=== PATIENT | female | born 1965 | race Caucasian/White ===

== ENCOUNTER 2016-12-15 15:57 | Inpatient (IN) ==
[2016-12-15] MEDS ORDERED: 0.9 % Sodium Chloride 1,000 ML IVC ONE (16:05)
[2016-12-15 16:37] LABS: Bilirubin,Urine Small (Negative); Blood,Urine Small (Negative); Clarity,Urine Clear (Clear); Color,Urine Yellow (Yellow); Glucose,Urine (UA) 100 mg/dL (Normal); Ketones,Urine 15 mg/dL (Negative); Leukocyte Esterase,Urine Negative (Negative); Nitrite,Urine Negative (Negative); Protein,Urine 100 mg/dL (Neg-Trace); Specific Gravity,Urine 1.025 (1.010-1.025); Urobilinogen,Urine >=8.0 mg/dL (Normal)
[2016-12-15 16:45] LABS: RBC,Urine 15-30 per hpf (0-3); Squamous Epithelial Cell,Urine Few per lpf (None-Few)
[2016-12-15 16:46] LABS: Mucus,Urine Moderate (Few); WBC,Urine 0-3 per hpf (0-3)
[2016-12-15 16:47] LABS: Bacteria,Urine Few per hpf (None-Few)
--- NOTE | 2016-12-15 16:53 | Emergency Department Note ---
Disposition Clinical Impression: Cellulitis and abscess of hand, Altered mental status, Positive urine drug screen, Polysubstance dependence Disposition: Admitted As Inpatient Condition: Fair General Adult HPI - General Chief complaint: ED Extremity Injury, Upper Stated complaint: Left hand pain Time Seen by Provider: 12/15/16 16:02 Source: EMS Mode of arrival: EMS Limitations: no limitations Nursing Notes Reviewed: Yes Vital Signs Reviewed: Yes - History of Present Illness HPI Narrative: Patient presents emergency room with complaint of left hand swelling redness and pain. Patient was also altered. Sent from urgent care for evaluation. 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 Radiation: non-radiation Pain Severity: severe Pain Scale: 10 Quality: aching Consistency: constant Improves with: nothing Worsens with: movement Associated symptoms: Reports: confusion, fever/chills Treatments Prior to Arrival: none - Related Data Home Medications Medication Instructions Recorded Confirmed Venlafaxine [Effexor] 75 mg PO TID 01/27/16 12/15/16 Omeprazole [PriLOSEC] 20 mg PO DAILY 08/02/16 12/15/16 Sucralfate [Carafate] 1 gm PO QID 08/02/16 12/15/16 Albuterol Sulfate [Proair Hfa] 2 puff IH Q4H PRN 12/15/16 12/15/16 ClonazePAM [Klonopin] 1 mg PO BID 12/15/16 12/15/16 Gabapentin [Neurontin] 800 mg PO TID 12/15/16 12/15/16 Previous Rx's Medication Instructions Recorded Furosemide [Lasix] 20 mg PO DAILY #30 tablet 08/04/16 Allergies Allergy/AdvReac Type Severity Reaction Status Date / Time ibuprofen Allergy Rash Verified 01/27/16 04:16 tramadol [From Ultram] Allergy Rash Verified 01/27/16 04:16 All systems ED: reviewed and negative except as stated. Limitations: ROS unobtainable due to patients medical condition Past Medical History - Past Medical History Attestation: Yes The following information was validated with the patient. 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 Absent: scleral icterus, miosis, mydriasis - ENT ENT exam: normal exam, normal oropharynx, mucous membranes moist - Neck Neck exam: Present: normal inspection, full ROM, trachea midline - Chest Chest inspection: Present: normal inspection, symmetric chest wall rise - Respiratory Respiratory exam: Present: normal lung sounds bilaterally. Absent: respiratory distress - Cardiovascular Cardiovascular exam: Present: regular rate, normal rhythm, normal heart sounds - Abdominal Exam Abdominal exam: Present: soft, Non-Tender, normal bowel sounds. Absent: tenderness, distention, guarding, rebound, rigidity - Extremities Exam Extremities exam: Present: normal inspection, full ROM, joint swelling (Joint swelling over the left wrist and hand. Cellulitis noted over the top of the extremity) - Back Exam Back exam: Present: normal inspection - Neurological Exam Neurological exam: Present: alert. Absent: oriented X3 - Skin Skin exam: Present: warm Course Course Narrative: Patient seen and examined the time of arrival. See history of present illness. 51-year-old female presents by EMS today for evaluation of altered mental status, hallucinations, left hand injury swelling and redness. She has long- standing history of psychiatric disease as well as drug abuse. Sent in from an urgent care for evaluation. Patient denies any symptoms on presentation. Patient has visible ataxia along with acting like she is intoxicated. Vital signs are presentation reviewed. Patient is not alert to time or place she follows commands intermittently. She has stable HEENT examination pupils are equal round reactive to light. Ocular muscles are intact. For torsion the neck. Lungs are clear heart is regular abdomen soft nontender nondistended. She was all 4 extremities with purpose. She does have significant redness and swelling from the mid shaft of the left forearm down to the dorsal aspect of the hands and fingers. There appears to be a puncture site on the dorsal aspect of the hand over venous supply. Concern for IV drug abuse at this time and sinusitis with abscess. Patient has multiple underlying medical conditions including psychiatric disease as well as drug abuse. There is concern for infectious presentation altered mental status secondary to these [address] the head CT of the left upper extremity chest x-ray labs troponin EKG blood cultures fluids provided as well as IV antibiotics for what appears to be cellulitic-like presentation. Patient will have urine and urine drug screen ordered at this time. Disposition will most likely be admission to hospital for definitive management. Otherwise patient is resting comfortably in the bed. We will continue to monitor treatment course is completed - Reevaluation(s) Reevaluation #1: Patient found a mildly elevated white blood cell count. No other significant lab abnormalities this time. Urine is positive for opioids, benzodiazepines, methamphetamine, cocaine. Patient has poly-substance abuse at this time. Altered mental status most likely secondary to this etiology and possible infection. CT of the arm still pending as well as definitive read on the CT of the head. Otherwise patient is resting comfortably and I would normal vital signs. First dose of IV antibiotics given at this time. Disposition will most likely be admission once treatment course is completed Time: 18:25 Reevaluation #2: Cellulitis of the left and confirmed by CT scan head is atraumatic. Labs show signs of infection with elevated WBC count. Patient also has some aspect of kidney dysfunction with multiple different findings and her urinalysis including protein ketones and glucose along with urobilinogen. Patient otherwise has no other acute specific pathology except for altered mental status secondary to polysubstance abuse and infection. First dose IV antibiotic given here. Hospitalist paged at this time for admission Time: 18:50 Reevaluation #3: Patient discussed with the hospitalist Dr. Orourke. Detailed review the presentation symptoms of medical history were reviewed. No other acute questions or concerns at this time. Patient to be admitted for what appears to be polysubstance abuse causing altered mental status and cellulitis. Patient stable here in the emergency room. Admission process to be completed. We will continue to monitor in the emergency room until admission process is completed Time: 19:08 Vital Signs Temperature 98.3 F 12/15/16 16:02 Pulse Rate 84 12/15/16 16:02 Respiratory Rate 16 12/15/16 16:02 Blood Pressure 127/85 12/15/16 16:02 O2 Sat by Pulse Oximetry 97 12/15/16 16:02 Temperature 97.6 F 12/19/16 19:36 Pulse Rate 78 12/19/16 19:36 Respiratory Rate 18 12/19/16 19:36 Blood Pressure 116/77 12/19/16 19:36 O2 Sat by Pulse Oximetry 97 12/19/16 19:36 Oxygen Delivery Oxygen Delivery Room Air Medical Decision Making - MDM Narrative Medical decision making narrative: Altered mental status, drug abuse, cellulitis - Medical Records Medical records reviewed: Yes I reviewed the patient's medical records. - Lab Data Lab results reviewed: Yes I reviewed the patient's lab results. Result diagrams: 12/19/16 04:25 12/19/16 04:25 - Radiology Data Radiology results reviewed: Yes I reviewed the patient's radiology results. CT of the head is negative for acute intracranial pathology. CT of the left upper extremity confirms cellulitis from the mid forearm down to the hand with no subcutaneous air. - EKG Data EKG #1 EKG attestation: Yes I reviewed and interpreted this EKG. EKG shows normal: sinus rhythm, axis, intervals, QRS complexes, ST-T waves Rate: normal Rhythm: NSR [place]/QRS: normal When compared to previous EKG there are: previous EKG unavailable Interpretation: normal EKG Critical Care Time Critical Care Time: Yes Total Critical Care Time: 45 Attestation: Independent of procedures and medical intervention
[2016-12-15 17:08] LABS: Basophils % 0.3 %; Eosinophils # 0.1 K/mcL (0.0-0.6); Eosinophils % 1.2 %; Hematocrit 35.1 % (35.3-44.9); Hemoglobin 11.3 g/dL (11.5-15.4); Immature Granulocytes % 0.3 % (0-4); Lymphocytes # 1.9 K/mcL (0.6-4.6); Lymphocytes % 16.4 %; Mean Corpuscular HGB Conc 32.2 g/dL (31.6-35.5); Mean Corpuscular Hemoglobin 27.6 pg (28.0-33.3); Mean Corpuscular Volume 85.6 fL (83.0-100.0); Mean Platelet Volume 10.4 fL (9.4-12.4); Monocytes # 0.9 K/mcL (0.0-1.3); Monocytes % 7.5 %; Neutrophils # 8.7 K/mcL (1.6-8.9); Platelet Count 229 K/mcL (140-400); Red Cell Distribution Width 15.6 % (11.5-14.5); Segmented Neutrophils % 74.3 %
[2016-12-15 17:13] LABS: INR 1.1; Prothrombin Time 12.4 Seconds (9.4-12.1)
[2016-12-15 17:15] LABS: Activated Partial Thrombo Time 27.4 Seconds (26.0-36.0)
[2016-12-15 17:15] LABS: Amphetamine Screen,Urine Positive ng/mL (Cutoff=1000); Barbiturate Screen,Urine Negative ng/mL (Cutoff=200); Benzodiazepines Screen,Urine Positive ng/mL (Cutoff=200); Cannabinoid Screen,Urine Negative ng/mL (Cutoff = 50); Cocaine Screen,Urine Positive ng/mL (Cutoff= 300); Opiate Screen,Urine Positive ng/mL (Cutoff=300); Phencyclidine Screen,Urine Negative ng/mL (Cutoff=25)
[2016-12-15] MEDS ORDERED: Vancomycin 750 MG in D5% in Water 250 ML IVPB ONE (17:21)
[2016-12-15 17:22] LABS: Alanine Aminotransferase 13 Units/L (0-55); Albumin 3.2 g/dL (3.5-5.0); Albumin/Globulin Ratio 0.9 (1.1-2.2); Alkaline Phosphatase 82 Units/L (38-126); Aspartate Amino Transferase 21 Units/L (5-34); BUN/Creatinine Ratio 30 (6-26); Bilirubin,Direct 0.6 mg/dL (0.0-0.5); Bilirubin,Indirect 0.8 mg/dL (0.0-1.2); Bilirubin,Total 1.4 mg/dL (0.2-1.2); Blood Urea Nitrogen 16 mg/dL (7-20); Calcium 9.1 mg/dL (8.6-10.8); Carbon Dioxide 27 mEq/L (19-29); Chloride 102 mEq/L (98-109); Creatine Kinase 49 Units/L (29-168); Globulin 3.4 g/dL (2.4-3.5); Glucose 92 mg/dL (70-99); Osmolality,Calculated 291 (280-300); Potassium 3.6 mEq/L (3.5-4.5); Sodium 140 mEq/L (136-145); Total Protein 6.6 g/dL (6.0-8.3); eGFR For African Americans > 60 (> 60); eGFR For Non-African Americans > 60 (> 60)
[2016-12-15 17:25] LABS: Acetaminophen < 1.0 mcg/mL (10-30); Ethanol < 10 mg/dL (0-10); Salicylate < 5.0 mg/dL (15-30)
[2016-12-15] MEDS ORDERED: Ondansetron 4 MG/2 ML VIAL IVP PRN (19:54)
--- NOTE | 2016-12-15 20:01 | Internal Med History&Physical ---
Date of Encounter: 12/15/16 Time of Encounter: 19:30 Assessment and Plan (1) Acute encephalopathy Current visit: Yes Status: Acute - Initial confused & slightly agitated in ED and currently hypersomnolent. - Likely secondary to polysubstance abuse in the setting of dehydration. - Hydration with IV NS. - Hold all home medication except Effexor. - Closely monitor. (2) Cellulitis Current visit: Yes Status: Acute - Affecting left distal dorsal forearm and left hand, as seen as subcutaneous fat stranding on CT left upper extremity. No drainable fluid collection and no acute osseous abnormality. - Pending blood culture. - Will obtain echocardiogram to evaluate potential endocarditis. - Continue IV vancomycin and add IV Zosyn for broader coverage. Will de- escalate later based on clinical findings & culture result. - Hydration with IV NS. - Closely monitor. Qualifiers: Site of cellulitis: extremity Site of cellulitis of extremity: upper extremity Laterality: left Qualified Code(s): L03.114 - Cellulitis of left upper limb (3) IVDU (intravenous drug user) Current visit: Yes Status: Acute - Left venous puncture site likely suggestive of IVDU. - Polysubstance abuse with UDS positive for opiates, amphetamine, benzodiazepam and cocaine. - Social service consulted. - Closely monitor with telemetry. (4) Hyperbilirubinemia Current visit: Yes Status: Acute - Mild elevated bilirubin at 1.6. - Likely secondary to dehydration. - Hydration with IV NS. - Continue to monitor. (5) DVT prophylaxis Current visit: Yes Status: Acute - SQ heparin. Internal Medicine - H&P: HPI Chief complaint: Altered mental status Admitted From: Emergency Dept Plans for Post Hospital Care: Home History of present illness: Ms. Mccallum is a 51 year old female with PMH of hepatitis C, IVDU, GERD and significant psychiatric history. Patient was sent from urgent care to [place] ED for altered mental status along with left upper extremity erythema and swelling. On my encounter with patient in ED, patient is hypersomnolent and not arousable to verbal or pain stimulus but patient does withdraw from pain. Given her current mental status, much of history was obtained from review of medical records and talking to ED staffs. Per ED nurse, patient was initially alert and slightly agitated with ataxic gait but oriented to self only upon presentation to ED. Police had searched patient's purse and found a crack pipe. Patient was also noted to have a puncture site on the dorsal aspect of the hand over venous supply, likely suggestive of IVDU. Blood culture was collected and patient was started on IV vancomycin and IV NS bolus in ED. Patient will be admitted for further evaluation and management. Past Med Surg Social Fam HX - Past Medical History Medical history: GERD, hepatitis, other Psychiatric history: anxiety, depression - Past Surgical History Surgical History: other (Laparotomy for perforated gastric ulcer) - Social History Smoking Status: Current every day smoker Smokeless Tobacco Status: No Alcohol use: unknown Drug use: none, cocaine, opiates, marijuana, methamphetamine, prescription drug abuse Internal Medicine - H&P: Meds Venlafaxine [Effexor] 75 mg PO TID 01/27/16 [History] Omeprazole [PriLOSEC] 20 mg PO DAILY 08/02/16 [History] Sucralfate [Carafate] 1 gm PO QID 08/02/16 [History] Furosemide [Lasix] 20 mg PO DAILY #30 tablet 08/04/16 [Rx] Albuterol Sulfate [Proair Hfa] 2 puff IH Q4H PRN 12/15/16 [History] ClonazePAM [Klonopin] 1 mg PO BID 12/15/16 [History] Gabapentin [Neurontin] 800 mg PO TID 12/15/16 [History] Allergies ibuprofen Allergy (Verified 01/27/16 04:16) Rash tramadol [From Ultram] Allergy (Verified 01/27/16 04:16) Rash ROS unobtainable: due to mental status All Systems PM: A 10-system review of systems was performed and is negative for pertinent findings except as documented above in the HPI. - Constitutional Vitals: Temp Pulse Resp BP Pulse Ox 98.3 F 75 16 103/64 97 12/15/16 16:02 12/15/16 18:00 12/15/16 18:00 12/15/16 18:00 12/15/16 18:00 General appearance: Present: no acute distress Exam: Patient is hypersomnolent and not arousble to verbal or pain stimuli. Patient does withdraw from pain. - Head Head exam: Present: atraumatic, normocephalic - Eye Eye exam: Present: sclera anicteric Pupils: Present: mydriatic - Neck Neck exam general surgery: Present: supple, trachea midline. Absent: lymphadenopathy - Respiratory Respiratory exam: Present: CTAB. Absent: accessory muscle use, rales, rhonchi, wheezes - Cardiovascular Cardiovascular exam: Present: RRR, +S1, +S2. Absent: diastolic murmur, gallop, rubs, systolic murmur - GI/Abdominal GI/Abdominal exam: Present: normal bowel sounds, soft, no peritoneal signs. Absent: distended - Extremities Exam Extremities exam: Present: warm, radial pulses palpable and symetrical. Absent : cyanotic, pedal edema Additional comments: Erythema, swelling and warmth to touch from left mid dorsal forearm extending to the left hand. A puncture site on the dorsal aspect of the hand over venous supply, likely suggestive of IVDU. - Neurological Exam Neurological exam: Absent: facial droop Additional comments: Unable to fully assess given patient's current mental status. - Skin Skin exam: Present: dry, warm Internal Med - H&P Results - Labs CBC & Chem 7: 12/15/16 16:54 12/15/16 16:54 Labs: Short CBC 12/15/16 Range/Units 16:54 WBC 11.7 H (4.3-11.1) K/mcL Hgb 11.3 L (11.5-15.4) g/dL Hct 35.1 L (35.3-44.9) % Plt Count 229 (140-400) K/mcL Neutrophils # 8.7 (1.6-8.9) K/mcL BMP 12/15/16 Range/Units 16:54 Sodium 140 (136-145) mEq/L Potassium 3.6 (3.5-4.5) mEq/L Chloride 102 (98-109) mEq/L Carbon Dioxide 27 (19-29) mEq/L BUN 16 (7-20) mg/dL Creatinine 0.53 L (0.57-1.11) mg/dL Glucose 92 (70-99) mg/dL Calcium 9.1 (8.6-10.8) mg/dL Cardiac Enzymes 12/15/16 Range/Units 16:54 Troponin I 0.00 (0-0.03) ng/mL Liver Function 12/15/16 Range/Units 16:54 Total Bilirubin 1.4 H (0.2-1.2) mg/dL Direct Bilirubin 0.6 H (0.0-0.5) mg/dL AST 21 (5-34) Units/L ALT 13 (0-55) Units/L Alkaline Phosphatase 82 (38-126) Units/L Albumin 3.2 L (3.5-5.0) g/dL Urine 12/15/16 Range/Units 16:21 Urine Color Yellow (Yellow) Urine Clarity Clear (Clear) Urine pH 7.0 (5.0-8.0) pH Units Ur Specific [place] 1.025 (1.010-1.025) Urine Protein 100 H (Neg-Trace) mg/dL Urine Glucose (UA) 100 H (Normal) mg/dL - EKG Data -: EKG Interpreted by Myself EKG shows normal: sinus rhythm Rate: normal - EKG Data Prior EKG available for review: no EKG comments: 12/15/16 20:29 HR 76, VA 115, QRS 86, no significant ischemic change noted. - Impressions Impressions Chest X-Ray 12/15/16 16:05 IMPRESSION: No acute abnormality. D/ / 12/15/2016 16:42:21 Dariel Valdes MD / pilar Interpreting Provider: Dariel Valdes MD Head CT 12/15/16 16:05 IMPRESSION: 1. No acute intracranial abnormality. D/ / Kennedy Valiente MD / Kennedy Valiente MD Interpreting Provider: Kennedy Valiente MD Upper Extremity CT 12/15/16 16:06 IMPRESSION: 1. Dorsal forearm and hand subcutaneous fat stranding compatible cellulitis. No drainable fluid collection. 2. No acute osseous abnormality. D/ / Mani Paredes MD / Mani Paredes MD Interpreting Provider: Mani Paredes MD
--- NOTE | 2016-12-15 20:11 | Emergency Department Note ---
START Narrative - START START: I, Osmar Garza, examined this patient and my medical decision-making was reviewed with the PROJECT PROGRAM MANAGER/PA/Advanced Practice Nurse/Resident Physician. I agree with the documented findings, disposition and treatment plan as described except to the extent set forth below. History source: Patient is unable to provide information for this note. Info was gathered from the patient, EMS, hospital staff, the patient's chart. History limitations: Patient condition Medications: As per nurses note 51-year-old female brought in by EMS for altered mental status and swelling with pain and erythema to the left distal upper extremity. Patient initially stated she had a spider bite then she claimed she was bitten by a cat that she had at home and then the story became that she would try to break up a fight between the cat and a raccoon. Family then was able to state that the patient uses multiple IV drugs and likely injected into her left upper extremity. Patient reports subjective fevers but denies taking her temperature at home. On physical exam there is significant erythema and edema of the left dorsal hand and distal forearm. No evidence of fluctuance or pointing abscess. CT of the distal left upper extremity shows evidence of cellulitis without evidence of free air or other abscess. Patient started on vancomycin to cover likely staph etiology. Patient will be admitted to the hospital for continuation of care and further treatment.
[2016-12-15] MEDS ORDERED: Vancomycin 750 MG in D5% in Water 250 ML IVPB SCH (21:00)
--- NOTE | 2016-12-15 21:43 | Event Note ---
Date of Encounter: 12/15/16 Time of Encounter: 21:43 Patient seen and examined with medical officer agree with assessment and plan
[2016-12-15] MEDS: 0.9 % Sodium Chloride 1,000 ML IVC SCH (21:49)
[2016-12-15] MEDS: Gabapentin 400 MG CAPSULE PO SCH (23:15)
[2016-12-15] MEDS: Acetaminophen 325 MG TABLET PO PRN (23:15)
[2016-12-15] MEDS: Nicotine 21 MG PATCH.TD24 TD SCH (23:15)
[2016-12-15] MEDS ORDERED: hydrOXYzine pamoate 25 MG CAPSULE PO ONE (23:26)
[2016-12-15] MEDS: Piperacillin/Tazobactam 3.375 GM in D5% in Water (Mini-Bag+) 100 ML IVPB SCH (23:43)
[2016-12-16 04:51] LABS: Basophils % 0.5 %; Eosinophils # 0.3 K/mcL (0.0-0.6); Hematocrit 33.6 % (35.3-44.9); Hemoglobin 10.5 g/dL (11.5-15.4); Immature Granulocytes % 0.2 % (0-4); Lymphocytes # 2.1 K/mcL (0.6-4.6); Mean Corpuscular HGB Conc 31.3 g/dL (31.6-35.5); Mean Corpuscular Hemoglobin 27.5 pg (28.0-33.3); Mean Platelet Volume 10.4 fL (9.4-12.4); Monocytes # 0.7 K/mcL (0.0-1.3); Monocytes % 7.8 %; Neutrophils # 5.3 K/mcL (1.6-8.9); Platelet Count 194 K/mcL (140-400); Red Blood Count 3.82 M/mcL (3.82-4.97); Red Cell Distribution Width 15.9 % (11.5-14.5); Segmented Neutrophils % 63.5 %
[2016-12-16 05:02] LABS: Alanine Aminotransferase 12 Units/L (0-55); Albumin 2.7 g/dL (3.5-5.0); Alkaline Phosphatase 68 Units/L (38-126); Aspartate Amino Transferase 17 Units/L (5-34); BUN/Creatinine Ratio 19 (6-26); Blood Urea Nitrogen 9 mg/dL (7-20); Calcium 8.4 mg/dL (8.6-10.8); Carbon Dioxide 21 mEq/L (19-29); Chloride 110 mEq/L (98-109); Globulin 2.8 g/dL (2.4-3.5); Glucose 84 mg/dL (70-99); Magnesium 1.5 mg/dL (1.6-2.6); Osmolality,Calculated 288 (280-300); Phosphorous 3.1 mg/dL (2.3-4.7); Potassium 3.2 mEq/L (3.5-4.5); Sodium 140 mEq/L (136-145); Total Protein 5.5 g/dL (6.0-8.3); eGFR For African Americans > 60 (> 60); eGFR For Non-African Americans > 60 (> 60)
[2016-12-16] MEDS: *HR* Heparin 5,000 UNIT/ML VIAL SQ SCH ×2 (05:44→18:25)
[2016-12-16] MEDS ORDERED: Vancomycin 750 MG in D5% in Water 250 ML IVPB SCH (07:00)
[2016-12-16] MEDS ORDERED: Potassium Chloride Elixir 20 MEQ/15 ML UDC PO ONE (08:25)
[2016-12-16] MEDS ORDERED: Magnesium Sulfate 2 GM in D5% in Water 100 ML IVPB ONE (08:25)
[2016-12-16] MEDS: Sucralfate 1 GM TABLET PO SCH ×4 (11:15→20:08)
[2016-12-16] MEDS: Gabapentin 400 MG CAPSULE PO SCH ×3 (11:15→20:07)
[2016-12-16] MEDS: Nicotine 21 MG PATCH.TD24 TD SCH (11:16)
[2016-12-16] MEDS: 0.9 % Sodium Chloride 1,000 ML IVC SCH (11:20)
[2016-12-16] MEDS: clonazePAM 1 MG TABLET PO PRN ×2 (12:55→22:37)
[2016-12-16] MEDS: Acetaminophen 325 MG TABLET PO PRN (12:55)
[2016-12-16] MEDS: Piperacillin/Tazobactam 3.375 GM in D5% in Water (Mini-Bag+) 100 ML IVPB SCH ×2 (13:02→18:59)
--- NOTE | 2016-12-16 14:06 | Internal Med Progress Note ---
Date of Encounter: 12/16/16 Time of Encounter: 14:05 - Assessment and plan (1) Cellulitis Current Visit: Yes Status: Acute Assessment and plan: Continues to have significant pain, swelling and redness in left hand and forearm. Patient is noted to have anxiety and mood swings and is noted to have pulled out 2 peripheral IV line since this morning. Explained the importance of IV antibiotics. Continue IV hydration and broad-spectrum IV antibiotics. CT left upper extremity showed no evidence of abscess. Follow-up blood cultures. Left upper extremity elevation. Pain control with when necessary Tylenol, oxycodone. Qualifiers: Site of cellulitis: extremity Site of cellulitis of extremity: upper extremity Laterality: left Qualified Code(s): L03.114 - Cellulitis of left upper limb (2) Positive urine drug screen Current Visit: Yes Status: Acute (3) Anxiety Current Visit: Yes Status: Chronic Assessment and plan: Continue when necessary benzodiazepines. (4) Polysubstance dependence Current Visit: Yes Status: Acute Assessment and plan: Urine drug screen positive for opiates, benzodiazepines, cocaine and amphetamines. business and services instructor consult for possible outpatient rehabilitation. (5) Depression Current Visit: Yes Status: Chronic Qualifiers: Depression Type: unspecified Qualified Code(s): F32.9 - Major depressive disorder, single episode, unspecified (6) Hepatitis C Current Visit: Yes Status: Chronic Assessment and plan: Treatment naive. Outpatient follow-up. Qualifiers: Viral hepatitis chronicity: chronic Hepatic coma status: without hepatic coma Qualified Code(s): B18.2 - Chronic viral hepatitis C (7) IVDU (intravenous drug user) Current Visit: Yes Status: Chronic - Subjective Interval history: Patient reportedly pulled out two peripheral IVs since morning; she is currently very agitated and demands another IV to receive pain medications and IV antibiotics; reports severe pain and swelling in left hand and forearm; - Constitutional Vitals: Temp Pulse Resp BP Pulse Ox 97.9 F 97 16 125/91 99 12/16/16 12:01 12/16/16 12:01 12/16/16 12:01 12/16/16 12:01 12/16/16 12:01 General appearance: Present: mild distress, A&O X 3 - Respiratory Respiratory exam: Present: CTAB. Absent: accessory muscle use, rales, rhonchi, wheezes - Cardiovascular Cardiovascular exam: Present: RRR, +S1, +S2. Absent: diastolic murmur, gallop, rubs, systolic murmur - GI/Abdominal GI/Abdominal exam: Present: normal bowel sounds, soft, no peritoneal signs. Absent: distended, tenderness - Extremities Exam Extremities exam: Present: warm, radial pulses palpable and symetrical. Absent : calf tenderness, cyanotic, pedal edema Additional comments: Left UE- diffuse edema, warmth, tenderness and erythema over left dorsal hand and distal forearm, with restriction in finger flexion due to pain and swelling Internal Medicine: Result - Labs CBC & Chem 7: 12/16/16 04:28 12/16/16 04:28 Labs: Short CBC 12/16/16 Range/Units 04:28 WBC 8.3 (4.3-11.1) K/mcL Hgb 10.5 L (11.5-15.4) g/dL Hct 33.6 L (35.3-44.9) % Plt Count 194 (140-400) K/mcL Neutrophils # 5.3 (1.6-8.9) K/mcL BMP 12/16/16 04:28 Sodium 140 Potassium 3.2 L Chloride 110 H Carbon Dioxide 21 BUN 9 Creatinine 0.48 L Glucose 84 Calcium 8.4 L Liver Function 12/16/16 Range/Units 04:28 Total Bilirubin 1.0 (0.2-1.2) mg/dL AST 17 (5-34) Units/L ALT 12 (0-55) Units/L Alkaline Phosphatase 68 (38-126) Units/L Albumin 2.7 L (3.5-5.0) g/dL - ABG Interpretation ABG results: PT/INR, D-dimer PT 12.4 Seconds (9.4-12.1) H 12/15/16 16:54 Consult Discharge Plan - Plan Referrals: Kalin Copeland, PAC [Primary Care Provider] -
[2016-12-16] MEDS: Magic Mouthwash 10 ML UD Cup PO SCH ×2 (16:14→18:24)
--- NOTE | 2016-12-16 18:55 | ECHO - Doppler Report ---
Echocardiogram Name: Gypsy Mccallum Date of Study: 12/16/2016 Date: 1965 Ht: 60.0 in Medical Record#: [id number] Age: 51 Wt: 132.0 lb Gender: Female BSA: 1.56 Order #: [id number] Location: [facility] Room #: 3B41 Reading Physician: Franco Ramirez MD, [facility] Negative Turner Apprentice: David Moy RDCS Ordering Physician: Rafaela Lynn DO Primary Physician: JUSTIN Grijalva Indications: Evaluate for endocarditis Impressions: No diagnostic vegetation. No severely regurgitant valvular disease. If clinically indicated, KIARRA would provide increased diagnostic sensitivity. LVEF 55-60%. Mild left ventricular diastolic dysfunction. Normal left ventricular diastolic function. No pulmonary hypertension. No significant valvular dysfunction. Left Ventricular Wall Motion: Rest Echo Findings All wall segments showed normal motion. Findings: Study Quality * Technically adequate exam. Right Ventricle * Normal right ventricular structure and function. Left Atrium * Normal left atrial size. Right Atrium * Normal right atrial size. Aortic Valve * Trileaflet aortic valve with normal function. Mitral Valve * Trace mitral regurgitation. * Normal mitral valve structure. * No mitral stenosis. Interatrial Septum * No evidence of PFO by color Doppler. Aorta * Normally sized aortic root. ECG Findings * Normal sinus rhythm. Left Ventricle * LVEF 55-60%. * Mild left ventricular diastolic dysfunction. * Normal left ventricular diastolic function. Pulmonic Valve * Pulmonic valve is not well visualized. * No pulmonic stenosis. * No pulmonic regurgitation. Tricuspid Valve * No tricuspid stenosis. * Trace tricuspid regurgitation. * Estimated RVSP is 18 mmHg. * Estimated RA pressure is5-8 mmHg. * No pulmonary hypertension. IVC * The IVC is dilated. * > 50% respiratory change Pericardium * There is a trivial pericardial effusion present. * There is no echocardiographic evidence of tamponade. History History of Smoking Years 35 Packs 1 08/03/16 a Previous Echo was performed. Measurements: BP: 125/ 91 2D Normal Values RVIDd: 2.28 cm <2.7 cm IVSd: .93 cm 0.6 - 1.0 cm LVIDd: 4.97 cm 3.7 - 5.6 cm LVPWd: 1.05 cm 0.6 - 1.1 cm LVIDs: 3.45 cm 1.5 - 3.6 cm AO: 2.40 cm < 4.0 cm LA: 3.40 cm 2.0 - 4.0cm %FS: 30.60 cm >25 % LA volume: 43 Mitral Valve Peak E:.89 m/sec Peak A:.79 m/sec E/A Ratio:1.1 Peak E' Lat Cheikh:11.4 cm/s Peak E' Med Cheikh:6.96 cm/s E/E' Lat Ratio:8 E/E' Med Ratio:13.1 Tricuspid Valve TV Regurg Peak Grad: 18.00mmHg TV Regurg Peak Cheikh: 2.10m/sec Updated by Franco Ramirez MD, FACC on 12/16/2016 6:48:33 PM electronically signed on 12/16/2016 6:50:52 PM with status of Final Wall Motion Lemon: 1=Normal, 2=Hypokinesis, 3=Akinesis, 4=Dyskinesis, 5=Aneurysmal, 6=Hyperkinetic, X=Not Visualized (Blank)=Missing
[2016-12-16] MEDS: *HR* OxyCODONE/APAP 5/325 TABLET PO PRN (20:07)
[2016-12-16] MEDS: Vancomycin 1,000 MG in D5% in Water 250 ML IVPB SCH (20:08)
--- NOTE | 2016-12-16 20:31 | Electrocardiograph Report ---
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
[2016-12-17] MEDS: Piperacillin/Tazobactam 3.375 GM in D5% in Water (Mini-Bag+) 100 ML IVPB SCH ×3 (01:25→17:11)
[2016-12-17 04:33] LABS: Basophils # 0.1 K/mcL (0.0-0.2); Basophils % 0.8 %; Eosinophils # 0.3 K/mcL (0.0-0.6); Eosinophils % 5.8 %; Hematocrit 33.3 % (35.3-44.9); Hemoglobin 10.4 g/dL (11.5-15.4); Immature Granulocytes % 0.3 % (0-4); Lymphocytes # 2.4 K/mcL (0.6-4.6); Lymphocytes % 40.6 %; Mean Corpuscular HGB Conc 31.2 g/dL (31.6-35.5); Mean Corpuscular Volume 89.8 fL (83.0-100.0); Monocytes # 0.5 K/mcL (0.0-1.3); Monocytes % 7.8 %; Neutrophils # 2.6 K/mcL (1.6-8.9); Platelet Count 201 K/mcL (140-400); Red Blood Count 3.71 M/mcL (3.82-4.97); Red Cell Distribution Width 16.2 % (11.5-14.5); Segmented Neutrophils % 44.7 %
[2016-12-17 04:50] LABS: BUN/Creatinine Ratio 15 (6-26); Blood Urea Nitrogen 8 mg/dL (7-20); Calcium 8.1 mg/dL (8.6-10.8); Carbon Dioxide 24 mEq/L (19-29); Chloride 111 mEq/L (98-109); Glucose 143 mg/dL (70-99); Osmolality,Calculated 291 (280-300); Potassium 3.9 mEq/L (3.5-4.5); Sodium 140 mEq/L (136-145); eGFR For African Americans > 60 (> 60); eGFR For Non-African Americans > 60 (> 60)
[2016-12-17] MEDS: *HR* Heparin 5,000 UNIT/ML VIAL SQ SCH ×2 (06:15→17:16)
[2016-12-17] MEDS: 0.9 % Sodium Chloride 1,000 ML IVC SCH (06:31)
[2016-12-17] MEDS: Magic Mouthwash 10 ML UD Cup PO SCH ×3 (08:04→17:11)
[2016-12-17] MEDS: clonazePAM 1 MG TABLET PO PRN ×3 (08:04→20:43)
[2016-12-17] MEDS: *HR* OxyCODONE/APAP 5/325 TABLET PO PRN ×3 (08:04→20:42)
[2016-12-17] MEDS: Vancomycin 1,000 MG in D5% in Water 250 ML IVPB SCH ×2 (08:05→20:43)
[2016-12-17] MEDS: Nicotine 21 MG PATCH.TD24 TD SCH (08:05)
[2016-12-17] MEDS: Sucralfate 1 GM TABLET PO SCH ×4 (08:05→20:42)
[2016-12-17] MEDS: Gabapentin 400 MG CAPSULE PO SCH ×3 (08:06→20:42)
--- NOTE | 2016-12-17 14:43 | Internal Med Progress Note ---
Date of Encounter: 12/17/16 Time of Encounter: 14:00 - Assessment and plan (1) Cellulitis Current Visit: Yes Status: Acute Assessment and plan: Improving redness and swelling and patient continues persistent pain in left hand. Continue IV hydration and broad-spectrum IV antibiotics. CT left upper extremity showed no evidence of abscess. Blood cultures remain negative so far. Left upper extremity elevation. Pain control with when necessary Tylenol , oxycodone. Echocardiogram shows 55-60% ejection fraction and mild left ventricular diastolic dysfunction, no evidence of vegetations. Qualifiers: Site of cellulitis: extremity Site of cellulitis of extremity: upper extremity Laterality: left Qualified Code(s): L03.114 - Cellulitis of left upper limb (2) Positive urine drug screen Current Visit: Yes Status: Acute (3) Anxiety Current Visit: Yes Status: Chronic Assessment and plan: Continue when necessary benzodiazepines. Patient requests to increase Klonopin from 2 times to 3 times daily. When necessary. (4) Polysubstance dependence Current Visit: Yes Status: Acute Assessment and plan: Urine drug screen positive for opiates, benzodiazepines, cocaine and amphetamines. director construction services consult for possible outpatient rehabilitation. (5) Depression Current Visit: Yes Status: Chronic Qualifiers: Depression Type: unspecified Qualified Code(s): F32.9 - Major depressive disorder, single episode, unspecified (6) Hepatitis C Current Visit: Yes Status: Chronic Qualifiers: Viral hepatitis chronicity: chronic Hepatic coma status: without hepatic coma Qualified Code(s): B18.2 - Chronic viral hepatitis C (7) IVDU (intravenous drug user) Current Visit: Yes Status: Chronic - Subjective Interval history: Noted to have improvement in left hand swelling and redness; however reports having 10/10 pain and requests increased pain meds and anxiety meds; no fever, nausea, diarrhea; - Constitutional Vitals: Temp Pulse Resp BP Pulse Ox 97.6 F 69 16 121/83 97 12/17/16 11:01 12/17/16 11:01 12/17/16 11:01 12/17/16 11:01 12/17/16 11:01 General appearance: Present: A&O X 3, answers questions appropriately - Respiratory Respiratory exam: Present: CTAB. Absent: accessory muscle use, rales, rhonchi, wheezes - Cardiovascular Cardiovascular exam: Present: RRR, +S1, +S2. Absent: diastolic murmur, gallop, rubs, systolic murmur - GI/Abdominal GI/Abdominal exam: Present: normal bowel sounds, soft, no peritoneal signs. Absent: distended, tenderness - Extremities Exam Extremities exam: Present: warm, radial pulses palpable and symetrical. Absent : calf tenderness, cyanotic, pedal edema Additional comments: Left hand- improving erythema, warmth and edema; persistent tenderness to light tough; improving ROM in finger flexion Internal Medicine: Result - Labs CBC & Chem 7: 12/17/16 04:01 12/17/16 04:01 Labs: Short CBC 12/17/16 Range/Units 04:01 WBC 5.9 (4.3-11.1) K/mcL Hgb 10.4 L (11.5-15.4) g/dL Hct 33.3 L (35.3-44.9) % Plt Count 201 (140-400) K/mcL Neutrophils # 2.6 (1.6-8.9) K/mcL BMP 12/17/16 04:01 Sodium 140 Potassium 3.9 Chloride 111 H Carbon Dioxide 24 BUN 8 Creatinine 0.55 L Glucose 143 H Calcium 8.1 L - ABG Interpretation ABG results: PT/INR, D-dimer PT 12.4 Seconds (9.4-12.1) H 12/15/16 16:54 Consult Discharge Plan - Plan Referrals: Kalin Copeland, PAC [Primary Care Provider] -
[2016-12-18] MEDS: Piperacillin/Tazobactam 3.375 GM in D5% in Water (Mini-Bag+) 100 ML IVPB SCH ×3 (02:00→18:06)
[2016-12-18] MEDS: *HR* OxyCODONE/APAP 5/325 TABLET PO PRN ×3 (05:57→22:14)
[2016-12-18] MEDS: *HR* Heparin 5,000 UNIT/ML VIAL SQ SCH ×2 (05:57→18:08)
[2016-12-18] MEDS: 0.9 % Sodium Chloride 1,000 ML IVC SCH ×2 (06:02→18:05)
[2016-12-18] MEDS: Gabapentin 400 MG CAPSULE PO SCH ×3 (08:00→22:04)
[2016-12-18] MEDS: Nicotine 21 MG PATCH.TD24 TD SCH (08:00)
[2016-12-18] MEDS: Vancomycin 1,000 MG in D5% in Water 250 ML IVPB SCH ×2 (08:01→22:04)
[2016-12-18] MEDS: clonazePAM 1 MG TABLET PO PRN ×3 (08:01→22:14)
[2016-12-18] MEDS: Magic Mouthwash 10 ML UD Cup PO SCH ×3 (08:01→18:06)
[2016-12-18] MEDS: Sucralfate 1 GM TABLET PO SCH ×4 (08:01→22:04)
--- NOTE | 2016-12-18 19:31 | Internal Med Progress Note ---
Date of Encounter: 12/18/16 Time of Encounter: 09:00 - Assessment and plan (1) Cellulitis Current Visit: Yes Status: Acute Assessment and plan: Improving redness and swelling and patient continues persistent pain in left hand. Continue IV hydration and broad-spectrum IV antibiotics. CT left upper extremity showed no evidence of abscess. Blood cultures remain negative so far. Left upper extremity elevation. Pain control with when necessary Tylenol , oxycodone. Echocardiogram shows 55-60% ejection fraction and mild left ventricular diastolic dysfunction, no evidence of vegetations. Patient is at high risk because she is on vancomycin, need close monitoring. Qualifiers: Site of cellulitis: extremity Site of cellulitis of extremity: upper extremity Laterality: left Qualified Code(s): L03.114 - Cellulitis of left upper limb (2) UTI (urinary tract infection) Current Visit: No Status: Acute Assessment and plan: Patient is on antibiotic, follow-up urine culture. Qualifiers: Urinary tract infection type: acute cystitis Hematuria presence: without hematuria Qualified Code(s): N30.00 - Acute cystitis without hematuria (3) Positive urine drug screen Current Visit: Yes Status: Acute (4) Anxiety Current Visit: Yes Status: Chronic Assessment and plan: Continue when necessary benzodiazepines. Patient requests to increase Klonopin from 2 times to 3 times daily. When necessary. (5) Polysubstance dependence Current Visit: Yes Status: Acute Assessment and plan: Urine drug screen positive for opiates, benzodiazepines, cocaine and amphetamines. director of consulting services consult for possible outpatient rehabilitation. (6) Hepatitis C Current Visit: Yes Status: Chronic Assessment and plan: Treatment naive. Outpatient follow-up. Qualifiers: Viral hepatitis chronicity: chronic Hepatic coma status: without hepatic coma Qualified Code(s): B18.2 - Chronic viral hepatitis C (7) IVDU (intravenous drug user) Current Visit: Yes Status: Chronic (8) DVT prophylaxis Current Visit: Yes Status: Acute Assessment and plan: Heparin subcutaneously - Subjective Interval history: Patient is a 51-year-old female admitted for left hand and arm swelling and pain. Past medical history is significant for IV drug abuse. Patient was seen and examined. Right hand and arm swelling has improved but still quite swelling with tenderness. No fever, vitals are stable. Will continue antibiotic treatment. Blood culture negative. - Constitutional Vitals: Temp Pulse Resp BP Pulse Ox 97.4 F L 85 18 135/82 96 12/18/16 18:59 12/18/16 18:59 12/18/16 18:59 12/18/16 18:59 12/18/16 18:59 General appearance: Present: A&O X 3, answers questions appropriately - Head Head exam: Present: atraumatic, normocephalic - Eye Eye exam: Present: PERRL, conjuntiva pink, sclera anicteric Pupils: Present: PERRL - Neck Neck exam general surgery: Present: supple, trachea midline. Absent: lymphadenopathy - Respiratory Respiratory exam: Present: CTAB. Absent: accessory muscle use, rales, rhonchi, wheezes - Cardiovascular Cardiovascular exam: Present: RRR, +S1, +S2. Absent: diastolic murmur, gallop, rubs, systolic murmur - GI/Abdominal GI/Abdominal exam: Present: normal bowel sounds, soft, no peritoneal signs. Absent: distended, tenderness - Extremities Exam Extremities exam: Present: warm, radial pulses palpable and symetrical. Absent : calf tenderness, cyanotic, pedal edema Additional comments: Right arm and hand swelling, with warmth and redness. - Neurological Exam Neurological exam: Present: CN II-XII intact, oriented X3, no focal deficits. Absent: pronater drift, facial droop, speech deficit - Skin Skin exam: Present: dry, intact Internal Medicine: Result - Labs CBC & Chem 7: 12/17/16 04:01 12/17/16 04:01 - ABG Interpretation ABG results: PT/INR, D-dimer PT 12.4 Seconds (9.4-12.1) H 12/15/16 16:54 Consult Discharge Plan - Plan Referrals: Kalin Copeland, PAC [Primary Care Provider] -
[2016-12-19 04:37] LABS: Basophils # 0.1 K/mcL (0.0-0.2); Basophils % 0.9 %; Eosinophils # 0.4 K/mcL (0.0-0.6); Eosinophils % 5.1 %; Hematocrit 34.2 % (35.3-44.9); Hemoglobin 10.9 g/dL (11.5-15.4); Immature Granulocytes % 0.9 % (0-4); Mean Corpuscular HGB Conc 31.9 g/dL (31.6-35.5); Mean Corpuscular Volume 87.9 fL (83.0-100.0); Mean Platelet Volume 10.6 fL (9.4-12.4); Monocytes # 0.5 K/mcL (0.0-1.3); Monocytes % 7.3 %; Neutrophils # 2.9 K/mcL (1.6-8.9); Platelet Count 284 K/mcL (140-400); Red Blood Count 3.89 M/mcL (3.82-4.97); Red Cell Distribution Width 15.8 % (11.5-14.5); Segmented Neutrophils % 41.8 %
[2016-12-19 04:59] LABS: BUN/Creatinine Ratio 18 (6-26); Blood Urea Nitrogen 10 mg/dL (7-20); Calcium 8.6 mg/dL (8.6-10.8); Carbon Dioxide 26 mEq/L (19-29); Chloride 111 mEq/L (98-109); Glucose 80 mg/dL (70-99); Osmolality,Calculated 294 (280-300); Potassium 3.8 mEq/L (3.5-4.5); Sodium 143 mEq/L (136-145); eGFR For African Americans > 60 (> 60); eGFR For Non-African Americans > 60 (> 60)
[2016-12-19] MEDS: Piperacillin/Tazobactam 3.375 GM in D5% in Water (Mini-Bag+) 100 ML IVPB SCH (05:38)
[2016-12-19] MEDS: *HR* Heparin 5,000 UNIT/ML VIAL SQ SCH ×2 (05:47→16:43)
[2016-12-19] MEDS: Nicotine 21 MG PATCH.TD24 TD SCH (09:48)
[2016-12-19] MEDS: Magic Mouthwash 10 ML UD Cup PO SCH ×3 (09:48→16:42)
[2016-12-19] MEDS: Sucralfate 1 GM TABLET PO SCH ×4 (09:48→21:01)
[2016-12-19] MEDS: Vancomycin 1,000 MG in D5% in Water 250 ML IVPB SCH ×2 (09:48→20:59)
[2016-12-19] MEDS: Gabapentin 400 MG CAPSULE PO SCH ×3 (09:48→21:01)
[2016-12-19] MEDS: clonazePAM 1 MG TABLET PO PRN ×2 (09:51→16:42)
[2016-12-19] MEDS: *HR* OxyCODONE/APAP 5/325 TABLET PO PRN ×3 (09:51→23:15)
[2016-12-19] MEDS: Acetaminophen 325 MG TABLET PO PRN ×2 (13:32→22:15)
[2016-12-19] MEDS: 0.9 % Sodium Chloride 1,000 ML IVC SCH (13:33)
[2016-12-19 17:49] LABS: Bilirubin,Urine Negative (Negative); Blood,Urine Negative (Negative); Clarity,Urine Clear (Clear); Color,Urine Yellow (Yellow); Glucose,Urine (UA) Normal (Normal); Ketones,Urine Negative (Negative); Leukocyte Esterase,Urine Negative (Negative); Nitrite,Urine Negative (Negative); Protein,Urine Negative (Neg-Trace); Specific Gravity,Urine 1.012 (1.010-1.025); Urobilinogen,Urine Normal (Normal)
--- NOTE | 2016-12-19 18:51 | Internal Med Progress Note ---
Date of Encounter: 12/19/16 Time of Encounter: 10:00 - Assessment and plan (1) Cellulitis Current Visit: Yes Status: Acute Assessment and plan: Improving redness and swelling and patient continues persistent pain in left hand. Continue IV hydration and broad-spectrum IV antibiotics. CT left upper extremity showed no evidence of abscess. Blood cultures remain negative so far. Left upper extremity elevation. Pain control with when necessary Tylenol , oxycodone. Echocardiogram shows 55-60% ejection fraction and mild left ventricular diastolic dysfunction, no evidence of vegetations. Will order US TO RULE OUT DVT Patient is at high risk because she is on vancomycin, need close monitoring. Qualifiers: Site of cellulitis: extremity Site of cellulitis of extremity: upper extremity Laterality: left Qualified Code(s): L03.114 - Cellulitis of left upper limb (2) Positive urine drug screen Current Visit: Yes Status: Acute (3) Anxiety Current Visit: Yes Status: Chronic Assessment and plan: Continue when necessary benzodiazepines. Patient requests to increase Klonopin from 2 times to 3 times daily. When necessary. (4) Polysubstance dependence Current Visit: Yes Status: Acute Assessment and plan: Urine drug screen positive for opiates, benzodiazepines, cocaine and amphetamines. nursing surgical services director consult for possible outpatient rehabilitation. (5) Hepatitis C Current Visit: Yes Status: Chronic Assessment and plan: Treatment naive. Outpatient follow-up. Qualifiers: Viral hepatitis chronicity: chronic Hepatic coma status: without hepatic coma Qualified Code(s): B18.2 - Chronic viral hepatitis C (6) IVDU (intravenous drug user) Current Visit: Yes Status: Chronic Assessment and plan: mechanical maintenance worker consult for further outpatient detox treatment (7) DVT prophylaxis Current Visit: Yes Status: Acute Assessment and plan: Heparin subcutaneously - Time Spent With Patient Greater than 35 minutes - Subjective Interval history: Patient is a 51-year-old female admitted for left hand and arm swelling and pain. Past medical history is significant for IV drug abuse. Patient was seen and examined. Right hand and arm swelling has improved but still quite swelling with tenderness, slow improvement. No fever, vitals are stable. Will continue antibiotic treatment. Continue Zosyn to Rocephin. US doppler to rule out DVT. She has not had a micro-scopic hematuria and proteinuria on admission, possibly due to sepsis, repeated urine analysis negative. - Constitutional Vitals: Temp Pulse Resp BP Pulse Ox 97.4 F L 75 16 123/76 96 12/19/16 14:54 12/19/16 14:54 12/19/16 14:54 12/19/16 14:54 12/19/16 14:54 General appearance: Present: A&O X 3, answers questions appropriately - Head Head exam: Present: atraumatic, normocephalic - Eye Eye exam: Present: PERRL, conjuntiva pink, sclera anicteric Pupils: Present: PERRL - Neck Neck exam general surgery: Present: supple, trachea midline. Absent: lymphadenopathy - Respiratory Respiratory exam: Present: CTAB. Absent: accessory muscle use, rales, rhonchi, wheezes - Cardiovascular Cardiovascular exam: Present: RRR, +S1, +S2. Absent: diastolic murmur, gallop, rubs, systolic murmur - GI/Abdominal GI/Abdominal exam: Present: normal bowel sounds, soft, no peritoneal signs. Absent: distended, tenderness - Extremities Exam Extremities exam: Present: tenderness (Left arm and hand swelling, tenderness, with warmness and redness), warm, radial pulses palpable and symetrical. Absent : calf tenderness, cyanotic, pedal edema - Neurological Exam Neurological exam: Present: CN II-XII intact, oriented X3, no focal deficits. Absent: pronater drift, facial droop, speech deficit - Skin Skin exam: Present: dry, intact Internal Medicine: Result - Labs CBC & Chem 7: 12/19/16 04:25 12/19/16 04:25 Labs: Short CBC 12/19/16 Range/Units 04:25 WBC 6.9 (4.3-11.1) K/mcL Hgb 10.9 L (11.5-15.4) g/dL Hct 34.2 L (35.3-44.9) % Plt Count 284 (140-400) K/mcL Neutrophils # 2.9 (1.6-8.9) K/mcL BMP 12/19/16 04:25 Sodium 143 Potassium 3.8 Chloride 111 H Carbon Dioxide 26 BUN 10 Creatinine 0.56 L Glucose 80 Calcium 8.6 Urine 12/19/16 Range/Units 17:30 Urine Color Yellow (Yellow) Urine Clarity Clear (Clear) Urine pH 7.0 (5.0-8.0) pH Units Ur Specific [place] 1.012 (1.010-1.025) Urine Protein Negative (Neg-Trace) mg/dL Urine Glucose (UA) Normal (Normal) mg/dL - ABG Interpretation ABG results: PT/INR, D-dimer PT 12.4 Seconds (9.4-12.1) H 12/15/16 16:54 Consult Discharge Plan - Plan Referrals: Kalin Copeland, PAC [Primary Care Provider] -
[2016-12-19] MEDS: clonazePAM 1 MG TABLET PO SCH (21:01)
[2016-12-20] MEDS: *HR* Heparin 5,000 UNIT/ML VIAL SQ SCH ×2 (05:34→16:56)
[2016-12-20] MEDS: *HR* OxyCODONE/APAP 5/325 TABLET PO PRN ×3 (05:36→20:03)
[2016-12-20 07:34] LABS: BUN/Creatinine Ratio 18 (6-26); Blood Urea Nitrogen 10 mg/dL (7-20); Carbon Dioxide 30 mEq/L (19-29); Chloride 107 mEq/L (98-109); Glucose 79 mg/dL (70-99); Osmolality,Calculated 298 (280-300); Potassium 3.8 mEq/L (3.5-4.5); Sodium 145 mEq/L (136-145); eGFR For African Americans > 60 (> 60); eGFR For Non-African Americans > 60 (> 60)
[2016-12-20 07:43] LABS: Basophils # 0.1 K/mcL (0.0-0.2); Eosinophils # 0.3 K/mcL (0.0-0.6); Eosinophils % 4.6 %; Hematocrit 34.3 % (35.3-44.9); Hemoglobin 10.8 g/dL (11.5-15.4); Immature Granulocytes % 1.8 % (0-4); Lymphocytes % 42.1 %; Mean Corpuscular HGB Conc 31.5 g/dL (31.6-35.5); Mean Corpuscular Hemoglobin 27.6 pg (28.0-33.3); Mean Corpuscular Volume 87.5 fL (83.0-100.0); Mean Platelet Volume 10.6 fL (9.4-12.4); Monocytes # 0.6 K/mcL (0.0-1.3); Monocytes % 7.6 %; Neutrophils # 3.1 K/mcL (1.6-8.9); Platelet Count 288 K/mcL (140-400); Red Blood Count 3.92 M/mcL (3.82-4.97); Red Cell Distribution Width 15.9 % (11.5-14.5); Segmented Neutrophils % 42.9 %
[2016-12-20] MEDS: Vancomycin 1,000 MG in D5% in Water 250 ML IVPB SCH ×2 (08:05→20:02)
[2016-12-20] MEDS: Sucralfate 1 GM TABLET PO SCH ×4 (08:07→20:03)
[2016-12-20] MEDS: Gabapentin 400 MG CAPSULE PO SCH ×3 (08:07→20:05)
[2016-12-20] MEDS: Magic Mouthwash 10 ML UD Cup PO SCH ×3 (08:07→19:43)
[2016-12-20] MEDS: Nicotine 21 MG PATCH.TD24 TD SCH (08:07)
[2016-12-20] MEDS: clonazePAM 1 MG TABLET PO SCH ×3 (08:07→20:03)
[2016-12-20] MEDS ORDERED: clonazePAM 1 MG TABLET PO SCH (09:00)
--- NOTE | 2016-12-20 13:29 | Venous Imaging Report ---
UE Venous Duplex Patient Name:Gypsy Mccallum Order Number:[id number] Procedure Date:12/20/2016 Date:1965Age:51 yrs Gender:Female Location:[facility] Room #: 3B41 Director Of Music Therapy:Beka Benjamin Referring MD:Brenna Mitchell MD speaker mounter:Kalin Copeland, PAC Reading MD:Waldo Alcala MD Primary Indications:R/O DVT Secondary Indications: Impressions: Normal left upper extremity deep and superficial venous exam. Normal contralateral subclavian vein. Findings Venous Duplex Results: Right: Venous imaging of the upper extremity reveals full patency and normal vessel compressibility of the right subclavian. Doppler signals in the evaluated veins were normal. Left: Venous imaging of the upper extremity reveals full patency and normal vessel compressibility of the left jugular, left subclavian, left axillary, left brachial, left cephalic, left basilic, left radial and left ulnar. Doppler signals in the evaluated veins were normal. Prior Study: No prior study available for comparison. Upper Extremity Venous Duplex Side Vein Compress Spontaneous Flow Augment Left Jugular Normal Yes Phasic Yes Left Subclavian Normal Yes Phasic Yes Left Axillary Normal Yes Phasic Yes Left Brachial Normal Yes Phasic Yes Left Cephalic Normal Yes Phasic Yes Left Basilic Normal Yes Phasic Yes Left Radial Normal Yes Phasic Yes Left Ulnar Normal Yes Phasic Yes Right Subclavian Normal Yes Phasic Yes Updated by Waldo Alcala MD on 12/20/2016 1:22:30 PM electronically signed on 12/20/2016 1:23:09 PM with status of Final
--- NOTE | 2016-12-20 18:57 | Internal Med Progress Note ---
Date of Encounter: 12/20/16 Time of Encounter: 08:00 - Assessment and plan (1) Cellulitis Current Visit: Yes Status: Acute Assessment and plan: Improving redness and swelling and patient continues persistent pain in left hand. Continue IV hydration and broad-spectrum IV antibiotics. CT left upper extremity showed no evidence of abscess. Blood cultures remain negative so far. Left upper extremity elevation. Pain control with when necessary Tylenol , oxycodone. Echocardiogram shows 55-60% ejection fraction and mild left ventricular diastolic dysfunction, no evidence of vegetations. No DVT or abscess identified. Patient is at high risk because she is on vancomycin, need close monitoring. Qualifiers: Site of cellulitis: extremity Site of cellulitis of extremity: upper extremity Laterality: left Qualified Code(s): L03.114 - Cellulitis of left upper limb (2) Positive urine drug screen Current Visit: Yes Status: Acute (3) Anxiety Current Visit: Yes Status: Chronic Assessment and plan: Continue when necessary benzodiazepines. Patient requests to increase Klonopin from 2 times to 3 times daily. When necessary. (4) Polysubstance dependence Current Visit: Yes Status: Acute Assessment and plan: Urine drug screen positive for opiates, benzodiazepines, cocaine and amphetamines. vocational services specialist consult for possible outpatient rehabilitation. (5) Hepatitis C Current Visit: Yes Status: Chronic Assessment and plan: Treatment naive. Outpatient follow-up. Qualifiers: Viral hepatitis chronicity: chronic Hepatic coma status: without hepatic coma Qualified Code(s): B18.2 - Chronic viral hepatitis C (6) IVDU (intravenous drug user) Current Visit: Yes Status: Chronic Assessment and plan: floorworker distributor consult for further outpatient detox treatment (7) DVT prophylaxis Current Visit: Yes Status: Acute Assessment and plan: Heparin subcutaneously - Time Spent With Patient Greater than 35 minutes - Subjective Interval history: Patient is a 51-year-old female admitted for left hand and arm swelling and pain. Past medical history is significant for IV drug abuse. Patient was seen and examined. Right hand and arm swelling has improved but still quite swelling with tenderness, slow improvement. No fever, vitals are stable. Will continue antibiotic treatment. US doppler done, no DVT. Repeated CT shows no abscess. - Constitutional Vitals: Temp Pulse Resp BP Pulse Ox 97.4 F L 87 16 139/83 99 12/20/16 15:19 12/20/16 15:19 12/20/16 15:19 12/20/16 15:19 12/20/16 15:19 General appearance: Present: A&O X 3, answers questions appropriately - Head Head exam: Present: atraumatic, normocephalic - Eye Eye exam: Present: PERRL, conjuntiva pink, sclera anicteric Pupils: Present: PERRL - Neck Neck exam general surgery: Present: supple, trachea midline. Absent: lymphadenopathy - Respiratory Respiratory exam: Present: CTAB. Absent: accessory muscle use, rales, rhonchi, wheezes - Cardiovascular Cardiovascular exam: Present: RRR, +S1, +S2. Absent: diastolic murmur, gallop, rubs, systolic murmur - GI/Abdominal GI/Abdominal exam: Present: normal bowel sounds, soft, no peritoneal signs. Absent: distended, tenderness - Extremities Exam Extremities exam: Present: warm, radial pulses palpable and symetrical. Absent : calf tenderness, cyanotic, pedal edema - Neurological Exam Neurological exam: Present: CN II-XII intact, oriented X3, no focal deficits. Absent: pronater drift, facial droop, speech deficit - Skin Skin exam: Present: dry, intact Internal Medicine: Result - Labs CBC & Chem 7: 12/20/16 07:02 12/20/16 07:02 Labs: Short CBC 12/20/16 Range/Units 07:02 WBC 7.2 (4.3-11.1) K/mcL Hgb 10.8 L (11.5-15.4) g/dL Hct 34.3 L (35.3-44.9) % Plt Count 288 (140-400) K/mcL Neutrophils # 3.1 (1.6-8.9) K/mcL BMP 12/20/16 07:02 Sodium 145 Potassium 3.8 Chloride 107 Carbon Dioxide 30 H BUN 10 Creatinine 0.57 Glucose 79 Calcium 9.0 - ABG Interpretation ABG results: PT/INR, D-dimer PT 12.4 Seconds (9.4-12.1) H 12/15/16 16:54 - Impressions Impressions Wrist CT 12/20/16 12:00 IMPRESSION: 1. Dorsal wrist and hand cellulitis with no evidence of an abscess. Infectious extensor tenosynovitis. 2. 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 No evidence of osteomyelitis. D/ / 12/20/2016 13:12:48 Dariel Valdes MD / Rubi Frost Interpreting Provider: Dariel Valdes MD Consult Discharge Plan - Plan Referrals: Kalin Copeland, PAC [Primary Care Provider] -
[2016-12-21] MEDS: *HR* OxyCODONE/APAP 5/325 TABLET PO PRN ×2 (04:09→10:40)
[2016-12-21] MEDS: *HR* Heparin 5,000 UNIT/ML VIAL SQ SCH (05:18)
[2016-12-21 06:22] LABS: Basophils # 0.1 K/mcL (0.0-0.2); Eosinophils # 0.4 K/mcL (0.0-0.6); Eosinophils % 4.9 %; Hematocrit 36.5 % (35.3-44.9); Hemoglobin 11.5 g/dL (11.5-15.4); Immature Granulocytes % 2.2 % (0-4); Lymphocytes # 2.6 K/mcL (0.6-4.6); Lymphocytes % 35.8 %; Mean Corpuscular HGB Conc 31.5 g/dL (31.6-35.5); Mean Corpuscular Hemoglobin 27.4 pg (28.0-33.3); Mean Corpuscular Volume 87.1 fL (83.0-100.0); Monocytes # 0.6 K/mcL (0.0-1.3); Neutrophils # 3.5 K/mcL (1.6-8.9); Platelet Count 302 K/mcL (140-400); Red Blood Count 4.19 M/mcL (3.82-4.97); Red Cell Distribution Width 16.2 % (11.5-14.5); Segmented Neutrophils % 48.1 %
[2016-12-21 06:33] LABS: BUN/Creatinine Ratio 17 (6-26); Blood Urea Nitrogen 10 mg/dL (7-20); Calcium 8.8 mg/dL (8.6-10.8); Carbon Dioxide 29 mEq/L (19-29); Chloride 104 mEq/L (98-109); Glucose 94 mg/dL (70-99); Osmolality,Calculated 291 (280-300); Potassium 4.1 mEq/L (3.5-4.5); Sodium 141 mEq/L (136-145); eGFR For African Americans > 60 (> 60); eGFR For Non-African Americans > 60 (> 60)
[2016-12-21 08:06] VITALS: BP 120/70
[2016-12-21] MEDS: clonazePAM 1 MG TABLET PO SCH (08:19)
[2016-12-21] MEDS: Magic Mouthwash 10 ML UD Cup PO SCH (08:19)
[2016-12-21] MEDS: Gabapentin 400 MG CAPSULE PO SCH (08:19)
[2016-12-21] MEDS: Sucralfate 1 GM TABLET PO SCH (08:19)
[2016-12-21] MEDS: Nicotine 21 MG PATCH.TD24 TD SCH (08:20)
[2016-12-21] MEDS: Vancomycin 1,000 MG in D5% in Water 250 ML IVPB SCH (08:20)
--- NOTE | 2016-12-21 10:57 | Discharge Summary ---
Date of Encounter: 12/21/16 Time of Encounter: 10:00 - Discharge Diagnosis (1) Cellulitis Priority: Primary Status: Acute Qualifiers: Site of cellulitis: extremity Site of cellulitis of extremity: upper extremity Laterality: left Qualified Code(s): L03.114 - Cellulitis of left upper limb (2) Positive urine drug screen Priority: Secondary Status: Acute (3) Anxiety Priority: Secondary Status: Chronic (4) Polysubstance dependence Priority: Secondary Status: Acute (5) Hepatitis C Priority: Secondary Status: Chronic Qualifiers: Viral hepatitis chronicity: chronic Hepatic coma status: without hepatic coma Qualified Code(s): B18.2 - Chronic viral hepatitis C (6) IVDU (intravenous drug user) Priority: Secondary Status: Chronic (7) DVT prophylaxis Priority: Secondary Status: Acute - Discharge Medications Prescriptions: Acetaminophen [Tylenol] 650 mg PO Q6HR PRN #14 tablet PRN Reason: Pain Nicotine Patch [Nicoderm] 21 mg TD DAILY #14 patch.td24 Sulfamethoxazole/Trimeth DS [Bactrim Ds] 1 each PO BID #14 tablet Home Medications: Venlafaxine [Effexor] 75 mg PO TID 01/27/16 [History] Omeprazole [PriLOSEC] 20 mg PO DAILY 08/02/16 [History] Sucralfate [Carafate] 1 gm PO QID 08/02/16 [History] Furosemide [Lasix] 20 mg PO DAILY #30 tablet 08/04/16 [Rx] Albuterol Sulfate [Proair Hfa] 2 puff IH Q4H PRN 12/15/16 [History] ClonazePAM [Klonopin] 1 mg PO BID 12/15/16 [History] Gabapentin [Neurontin] 800 mg PO TID 12/15/16 [History] Acetaminophen [Tylenol] 650 mg PO Q6HR PRN #14 tablet 12/21/16 [Rx] Nicotine Patch [Nicoderm] 21 mg TD DAILY #14 patch.td24 12/21/16 [Rx] Sulfamethoxazole/Trimeth DS [Bactrim Ds] 1 each PO BID #14 tablet 12/21/16 [Rx] Allergies/Adverse Reactions: Allergies ibuprofen Allergy (Verified 01/27/16 04:16) Rash tramadol [From Ultram] Allergy (Verified 01/27/16 04:16) Rash Procedures/tests Complete & Pending: Procedures Performed prior 72 hours Category Date Time Status CT wrist LT w con [CT] Stat Cat Scan 12/20/16 12:00 Completed EV venous imaging UE LT Routine Y 12/20/16 13:54 Completed - Notes to Outpatient Provider Continue Bactrim DS 1 tablet twice a day for 7 more days. Date of admission: 12/15/16 20:40 Primary care physician: Kalin Copeland Discharging clinician: Brenna Mitchell Anticipated date of discharge: 12/21/16 - Patient Status Disposition: Home, Self-Care Condition: Fair Functional capacity at discharge: independent ambulation Overall status at discharge: patient is progressing back to baseline - Discharge Instructions Follow Up With: Kalin Copeland, PAC [Primary Care Provider] - 01/09/17 1:30 pm - Diet and Activity Activity: increase activity as tolerated Diet: regular diet Interval History: Ms. Mccallum is a 51 year old female with PMH of hepatitis C, IVDU, GERD and significant psychiatric history. Patient was sent from urgent care to [place] ED for altered mental status along with left upper extremity erythema and swelling. On my encounter with patient in ED, patient is hypersomnolent and not arousable to verbal or pain stimulus but patient does withdraw from pain. Given her current mental status, much of history was obtained from review of medical records and talking to ED staffs. Per ED nurse, patient was initially alert and slightly agitated with ataxic gait but oriented to self only upon presentation to ED. Police had searched patient's purse and found a crack pipe. Patient was also noted to have a puncture site on the dorsal aspect of the hand over venous supply, likely suggestive of IVDU. Blood culture was collected and patient was started on IV vancomycin and IV NS bolus in ED. Patient will be admitted for further evaluation and management. Hospital course: Ms. Mccallum is a 51 year old female admitted for left arm cellulitis. Patient was placed on antibiotic treatment. His pain and the swelling has improved. CT and US arm has been done, no abscess or DVT. Patient was discharged home with by mouth antibiotic. Patient was seen and examined. She is awake alert, oriented 3. Still complains of mild pain on left wrist, swelling has resolved. Vitals are stable. WBC is within normal limit. Patient with discharge home with by mouth antibiotic. Follow-up with PCP. community mental health social worker saw patient already. Time spent discussing smoking cessation with patient: more than 10 minutes - Time Spent with Patient Total time spent providing and/or coordinating discharge services: 40 minutes Greater than 30 minutes - Constitutional Vitals: Temp Pulse Resp BP Pulse Ox 97.7 F 69 15 120/70 97 12/21/16 08:00 12/21/16 08:00 12/21/16 08:00 12/21/16 08:00 12/21/16 08:00 General appearance: Present: A&O X 3, answers questions appropriately - Head Head exam: Present: atraumatic, normocephalic - Eye Eye exam: Present: PERRL, conjuntiva pink, sclera anicteric Pupils: Present: PERRL - Neck Neck exam general surgery: Present: supple, trachea midline. Absent: lymphadenopathy - Respiratory Respiratory exam: Present: CTAB. Absent: accessory muscle use, rales, rhonchi, wheezes - Cardiovascular Cardiovascular exam: Present: RRR, +S1, +S2. Absent: diastolic murmur, gallop, rubs, systolic murmur - GI/Abdominal GI/Abdominal exam: Present: normal bowel sounds, soft, no peritoneal signs. Absent: distended, tenderness - Extremities Exam Extremities exam: Present: warm, radial pulses palpable and symetrical. Absent : calf tenderness, cyanotic, pedal edema Additional comments: Mild pain on left wrist. - Neurological Exam Neurological exam: Present: CN II-XII intact, oriented X3, no focal deficits. Absent: pronater drift, facial droop, speech deficit - Skin Skin exam: Present: dry, intact
[2016-12-21] MEDS ORDERED: Sulfamethoxazole/Trimeth DS 1 EACH TABLET PO SCH (11:00)
[2016-12-21] MEDS ORDERED: Aminoglycoside Consult 1 EACH MC ONE (12:04)
== END 2016-12-21 12:05 | disposition home or self-care (01) | DRG 383 ==
LOC: EMEROO 15:57 → 3BNU 15:57 → SUATTDRO 20:40 → 3BNU 21:41
PROVIDERS: ADMIT Internal Medicine; ATTEND Internal Medicine

== ENCOUNTER 2017-05-26 19:45 | Inpatient (IN) ==
[2017-05-26] MEDS ORDERED: Haloperidol Lactate 5 MG/ML VIAL IM ONE (20:08)
[2017-05-26] MEDS ORDERED: *HR* LORazepam 2 MG/ML VIAL IM ONE (20:18)
--- NOTE | 2017-05-26 20:55 | Emergency Department Note ---
Disposition Clinical Impression: Acute psychosis Disposition: Still a Patient Condition: Good Referrals: Kalin Copeland PAC [Primary Care Provider] - Forms: ED Satisfaction Letter Psych HPI - General Chief Complaint: ED Psychiatric Symptoms Stated Complaint: ANXIOUS Time Seen by Provider: 05/26/17 19:52 Source: patient, EMS Mode of arrival: EMS Limitations: altered mental status Nursing Notes Reviewed: Yes Vital Signs Reviewed: Yes - History of Present Illness HPI Narrative: Patient presents to the ED with psychiatric complaints. Apparently, the patient is homeless and was found near a car wash today. It is unsure if she was sleeping or was unconscious. Police were called and they called EMS. She did not require any resuscitation or Narcan. Upon arrival, the patient has very tangential and pressured speech. She was asking to leave. However, upon talking to her. I do not feel that she is capable of making her own decisions. She also does not appear capable of taking care of herself. She will not answer questions about what happened today until given information that was told to us by EMS and then she would say that that was not true and come up with an alternate story. very difficult to redirect - Related Data Home Medications Medication Instructions Recorded Confirmed Venlafaxine [Effexor] 75 mg PO TID 01/27/16 12/15/16 Omeprazole [PriLOSEC] 20 mg PO DAILY 08/02/16 12/15/16 Sucralfate [Carafate] 1 gm PO QID 08/02/16 12/15/16 Albuterol Sulfate [Proair Hfa] 2 puff IH Q4H PRN 12/15/16 12/15/16 Gabapentin [Neurontin] 800 mg PO TID 12/15/16 12/15/16 clonazePAM [Klonopin] 1 mg PO BID 12/15/16 12/15/16 Previous Rx's Medication Instructions Recorded Furosemide [Lasix] 20 mg PO DAILY #30 tablet 08/04/16 Acetaminophen [Tylenol] 650 mg PO Q6HR PRN #14 tablet 12/21/16 Nicotine Patch [Nicoderm] 21 mg TD DAILY #14 patch.td24 12/21/16 Sulfamethoxazole/Trimeth DS 1 each PO BID #14 tablet 12/21/16 [Bactrim Ds] Allergies Allergy/AdvReac Type Severity Reaction Status Date / Time ibuprofen Allergy Rash Verified 01/27/16 04:16 tramadol [From Ultram] Allergy Rash Verified 01/27/16 04:16 Limitations: ROS unobtainable due to patients medical condition Past Medical History - Past Medical History Source: old records reviewed Medical history: Reports: GERD, hepatitis, hyperlipidemia, hypertension, other Surgical history: Reports: other (Laparotomy for perforated gastric ulcer) Psychiatric history: Reports: anxiety, bipolar, depression, schizophrenia, previous psychiatric hospitalization REGIONAL COORDINATOR history: Reports: no REGIONAL COORDINATOR history - Social History Smoking Status: Current every day smoker Smokeless Tobacco Status: No Alcohol use: Reports: none Drug use: Reports: none, cocaine, opiates, marijuana, methamphetamine, prescription drug abuse Physical Exam - General Limitations: no limitations General appearance: alert, anxious, other (appears unkempt, poor eye contact, answers questions evasively ) - Head Head exam: atraumatic, normocephalic, normal inspection - ENT ENT exam: mucous membranes dry - Respiratory Respiratory exam: Present: normal lung sounds bilaterally - Cardiovascular Cardiovascular exam: Present: regular rate, normal rhythm, normal heart sounds - Neurological Exam Neurological exam: Present: alert, oriented X3 (knows month, year, and place but refuses to give name. ), CN II-XII intact (grossly intact, will not follow commands enough for formal testing. No obvious motor deficits ) - Expanded Psychiatric Exam Expanded psych exam: Present: poor eye contact, pressured speech, delusional, paranoid, restlessness, flight of ideas, loose associations, uncooperative, refuses to answer. Absent: visual hallucinations - Skin Skin exam: Present: warm, dry, intact, normal color Course Vital Signs Temperature 98.2 F 05/26/17 19:49 Pulse Rate 86 05/26/17 19:49 Respiratory Rate 22 05/26/17 19:49 Blood Pressure 145/112 05/26/17 19:49 O2 Sat by Pulse Oximetry 99 05/26/17 19:49 Temperature 98.2 F 05/26/17 19:49 Pulse Rate 77 05/26/17 21:53 Respiratory Rate 14 05/26/17 21:53 Blood Pressure 115/73 05/26/17 21:53 O2 Sat by Pulse Oximetry 91 05/26/17 21:53 Oxygen Delivery Oxygen Delivery Room Air Psych - Lab Data Result diagrams: 05/26/17 20:54 05/26/17 20:54 Lab Results 05/26/17 05/26/17 05/26/17 Range/Units 20:54 20:54 21:00 WBC 7.7 (4.3-11.1) K/mcL RBC 4.53 (3.82-4.97) M/mcL Hgb 12.6 (11.5-15.4) g/dL Hct 39.4 (35.3-44.9) % MCV 87.0 (83.0-100.0) fL MCH 27.8 L (28.0-33.3) pg MCHC 32.0 (31.6-35.5) g/dL RDW 14.4 (11.5-14.5) % Plt Count 241 (140-400) K/mcL MPV 9.6 (9.4-12.4) fL Immature Gran % 0.3 (0-4) % Seg Neutrophils % 48.7 % Lymphocytes % 40.3 % Monocytes % 7.7 % Eosinophils % 2.2 % Basophils % 0.8 % Neutrophils # 3.8 (1.6-8.9) K/mcL Lymphocytes # 3.1 (0.6-4.6) K/mcL Monocytes # 0.6 (0.0-1.3) K/mcL Eosinophils # 0.2 (0.0-0.6) K/mcL Basophils # 0.1 (0.0-0.2) K/mcL Sodium 143 (136-145) mEq/L Potassium 3.6 (3.5-4.5) mEq/L Chloride 108 (98-109) mEq/L Carbon Dioxide 22 (19-29) mEq/L BUN 18 (7-20) mg/dL Creatinine 0.65 (0.57-1.11) mg/dL Est GFR ( Amer) > 60 (> 60) Est GFR (Non-Af Amer) > 60 (> 60) BUN/Creatinine Ratio 28 H (6-26) Glucose 78 (70-99) mg/dL Calculated Osmolality 297 (280-300) Calcium 9.8 (8.6-10.8) mg/dL TSH 1.153 (0.350-4.840) mcIU/mL Urine Color Dark Yellow (Yellow) Urine Clarity Clear (Clear) Urine pH 6.0 (5.0-8.0) pH Units Ur Specific [place] 1.027 H (1.010-1.025) Urine Protein Negative (Neg-Trace) mg/dL Urine Glucose (UA) Normal (Normal) mg/dL Urine Ketones Trace H (Negative) mg/dL Urine Blood Negative (Negative) Urine Nitrite Negative (Negative) Urine Bilirubin Small H (Negative) Urine Urobilinogen Normal (Normal) mg/dL Ur Leukocyte Esterase Small H (Negative) Urine Microscopic RBC 5-15 H (0-3) per hpf Urine Microscopic WBC 5-15 H (0-3) per hpf Ur Squamous Epith Cells Many H (None-Few) per lpf Urine Bacteria None Seen (None-Few) per hpf Hyaline Casts Few (None-Few) per lpf Urine Mucus Many H (Few) Salicylates < 5.0 L (15-30) mg/dL Urine Opiates Screen (Dislxt=583) ng/mL Acetaminophen < 1.0 L (10-30) mcg/mL Ur Barbiturates Screen (Oaluwp=160) ng/mL Ur Phencyclidine Scrn (Cutoff=25) ng/mL Ur Amphetamines Screen (Vhwjea=4961) ng/mL U Benzodiazepines Scrn (Ologiu=535) ng/mL Urine Cocaine Screen (Cutoff= 300) ng/mL U Marijuana (THC) Screen (Cutoff = 50) ng/mL Ethyl Alcohol < 10 (0-10) mg/dL 05/26/17 Range/Units 21:00 WBC (4.3-11.1) K/mcL RBC (3.82-4.97) M/mcL Hgb (11.5-15.4) g/dL Hct (35.3-44.9) % MCV (83.0-100.0) fL MCH (28.0-33.3) pg MCHC (31.6-35.5) g/dL RDW (11.5-14.5) % Plt Count (140-400) K/mcL MPV (9.4-12.4) fL Immature Gran % (0-4) % Seg Neutrophils % % Lymphocytes % % Monocytes % % Eosinophils % % Basophils % % Neutrophils # (1.6-8.9) K/mcL Lymphocytes # (0.6-4.6) K/mcL Monocytes # (0.0-1.3) K/mcL Eosinophils # (0.0-0.6) K/mcL Basophils # (0.0-0.2) K/mcL Sodium (136-145) mEq/L Potassium (3.5-4.5) mEq/L Chloride (98-109) mEq/L Carbon Dioxide (19-29) mEq/L BUN (7-20) mg/dL Creatinine (0.57-1.11) mg/dL Est GFR ( Amer) (> 60) Est GFR (Non-Af Amer) (> 60) BUN/Creatinine Ratio (6-26) Glucose (70-99) mg/dL Calculated Osmolality (280-300) Calcium (8.6-10.8) mg/dL TSH (0.350-4.840) mcIU/mL Urine Color (Yellow) Urine Clarity (Clear) Urine pH (5.0-8.0) pH Units Ur Specific [place] (1.010-1.025) Urine Protein (Neg-Trace) mg/dL Urine Glucose (UA) (Normal) mg/dL Urine Ketones (Negative) mg/dL Urine Blood (Negative) Urine Nitrite (Negative) Urine Bilirubin (Negative) Urine Urobilinogen (Normal) mg/dL Ur Leukocyte Esterase (Negative) Urine Microscopic RBC (0-3) per hpf Urine Microscopic WBC (0-3) per hpf Ur Squamous Epith Cells (None-Few) per lpf Urine Bacteria (None-Few) per hpf Hyaline Casts (None-Few) per lpf Urine Mucus (Few) Salicylates (15-30) mg/dL Urine Opiates Screen Positive H (Ydhkxo=499) ng/mL Acetaminophen (10-30) mcg/mL Ur Barbiturates Screen Negative (Uhfgcu=716) ng/mL Ur Phencyclidine Scrn Negative (Cutoff=25) ng/mL Ur Amphetamines Screen Positive H (Syjycd=3041) ng/mL U Benzodiazepines Scrn Positive H (Qskfxp=303) ng/mL Urine Cocaine Screen Positive H (Cutoff= 300) ng/mL U Marijuana (THC) Screen Positive H (Cutoff = 50) ng/mL Ethyl Alcohol (0-10) mg/dL - EKG Data EKG attestation: Yes I reviewed and interpreted this EKG. EKG results narrative: Sinus rhythm with short NM interval, rate 80, NM interval 101, QRS 93, QTC 396, normal axis, no acute ischemic changes. Psychiatric Medical Clearance - Medical Clearance Checklist Medical History: UTI (urinary tract infection) (Acute) Overdose (Acute) Positive urine drug screen (Acute) MDD (major depressive disorder), recurrent episode, severe (Acute) Anxiety (Chronic) Polysubstance dependence (Acute) Chest pain (Resolved) Shortness of breath (Acute) Edema (Acute) Depression (Chronic) Hepatitis C (Chronic) Tobacco abuse (Chronic) History of drug abuse (Chronic) Cellulitis and abscess of hand (Acute) Altered mental status (Acute) Acute encephalopathy (Acute) Cellulitis (Acute) IVDU (intravenous drug user) (Chronic) Hyperbilirubinemia (Acute) DVT prophylaxis (Acute) Pedal edema (Resolved) Acute anxiety (Inactive) Cellulitis (Inactive) Contusion of head (Inactive) Hordeolum externum of left eye (Inactive) Localized swelling of both lower legs (Inactive) Medication refill (Inactive) Nose irritation (Inactive) Substance abuse (Inactive) URI (upper respiratory infection) (Inactive) UTI (urinary tract infection) (Inactive) No Social History Section defined Current Vitals: Last Vital Signs Temp 98.2 F 05/26/17 19:49 Pulse 77 05/26/17 21:53 Resp 14 05/26/17 21:53 BP 115/73 05/26/17 21:53 Pulse Ox 91 05/26/17 21:53 Psychiatric Lab Panel: Drug Levels and Toxicity 05/26/17 05/26/17 20:54 21:00 Urine Opiates Screen Positive H Acetaminophen < 1.0 L Ur Barbiturates Screen Negative Ur Phencyclidine Scrn Negative Ur Amphetamines Screen Positive H U Benzodiazepines Scrn Positive H Urine Cocaine Screen Positive H U Marijuana (THC) Screen Positive H Ethyl Alcohol < 10 Abnormal Labs: Abnormal lab results MCH 27.8 pg (28.0-33.3) L 05/26/17 20:54 BUN/Creatinine Ratio 28 (6-26) H 05/26/17 20:54 Ur Specific [place] 1.027 (1.010-1.025) H 05/26/17 21:00 Urine Ketones Trace mg/dL (Negative) H 05/26/17 21:00 Urine Bilirubin Small (Negative) H 05/26/17 21:00 Ur Leukocyte Esterase Small (Negative) H 05/26/17 21:00 Urine Microscopic RBC 5-15 per hpf (0-3) H 05/26/17 21:00 Urine Microscopic WBC 5-15 per hpf (0-3) H 05/26/17 21:00 Ur Squamous Epith Cells Many per lpf (None-Few) H 05/26/17 21:00 Urine Mucus Many (Few) H 05/26/17 21:00 Salicylates < 5.0 mg/dL (15-30) L 05/26/17 20:54 Urine Opiates Screen Positive ng/mL (Tleksa=870) H 05/26/17 21:00 Acetaminophen < 1.0 mcg/mL (10-30) L 05/26/17 20:54 Ur Amphetamines Screen Positive ng/mL (Nxpzla=6805) H 05/26/17 21:00 U Benzodiazepines Scrn Positive ng/mL (Rfjril=910) H 05/26/17 21:00 Urine Cocaine Screen Positive ng/mL (Cutoff= 300) H 05/26/17 21:00 U Marijuana (THC) Screen Positive ng/mL (Cutoff = 50) H 05/26/17 21:00 Statement of Medical Clearance: I have evaluated the patient, reviewed diagnostic information, and certify that the patient's medical condition is sufficiently stable that transfer to the psychiatric unit does not pose a significant risk of deterioration. Attestation Statement - Attestation Attestation: I examined this patient and my medical decision-making was reviewed with the Resident Physician, Dr. Shaikh. I agree with the documented findings, disposition and treatment plan as described except to the extent set forth below. He is a 52-year-old white female with a history of polysubstance abuse and major depressive disorder has been previously hospitalized for depression and suicidal ideation. Patient is brought to us by EMS after the police were called because she was reportedly acting strangely and sitting inside of a car wash area. Patient arrived with auditory and visual hallucinations, very paranoid, and tangential thought. There were no reports of trauma or assaults and patient has no physical sign of injury. Patient denies any pain or physical symptoms at this time. I agree with patient's physical exam findings as documented. After arrival patient was very agitated and clearly could not be allowed to sign out AMA if she is not capable of making decisions is time for her own safety. We had nursing administer 5 mg of Haldol IM for chemical sedation and a pink slip was signed and placed on the chart. At this point I am full lab panel including urine drug screen alcohol was obtained. Patient's medical labs were all were within normal limits and urine drug screen was positive for multiple substances. At this time I feel the patient is medically clear for further psychiatric evaluation and we will wait 1 nasal evaluation. Patient is currently resting comfortably at bedside, vital signs are stable and she is being monitored with continuous pulse ox. We will sign out the patient to Dr. Tatum in the restaurant shift leader team for 1 day evaluation and final disposition.
[2017-05-26 21:00] LABS: Basophils # 0.1 K/mcL (0.0-0.2); Basophils % 0.8 %; Eosinophils # 0.2 K/mcL (0.0-0.6); Eosinophils % 2.2 %; Hematocrit 39.4 % (35.3-44.9); Hemoglobin 12.6 g/dL (11.5-15.4); Immature Granulocytes % 0.3 % (0-4); Lymphocytes # 3.1 K/mcL (0.6-4.6); Lymphocytes % 40.3 %; Mean Corpuscular Hemoglobin 27.8 pg (28.0-33.3); Mean Platelet Volume 9.6 fL (9.4-12.4); Monocytes # 0.6 K/mcL (0.0-1.3); Monocytes % 7.7 %; Neutrophils # 3.8 K/mcL (1.6-8.9); Platelet Count 241 K/mcL (140-400); Red Blood Count 4.53 M/mcL (3.82-4.97); Red Cell Distribution Width 14.4 % (11.5-14.5); Segmented Neutrophils % 48.7 %
[2017-05-26 21:10] LABS: Bilirubin,Urine Small (Negative); Blood,Urine Negative (Negative); Clarity,Urine Clear (Clear); Color,Urine Dark Yellow (Yellow); Glucose,Urine (UA) Normal (Normal); Ketones,Urine Trace mg/dL (Negative); Leukocyte Esterase,Urine Small (Negative); Nitrite,Urine Negative (Negative); Protein,Urine Negative (Neg-Trace); Specific Gravity,Urine 1.027 (1.010-1.025); Urobilinogen,Urine Normal (Normal)
[2017-05-26 21:12] LABS: Bacteria,Urine None Seen per hpf (None-Few); Hyaline Casts,Urine Few per lpf (None-Few); Squamous Epithelial Cell,Urine Many per lpf (None-Few)
[2017-05-26 21:13] LABS: BUN/Creatinine Ratio 28 (6-26); Blood Urea Nitrogen 18 mg/dL (7-20); Calcium 9.8 mg/dL (8.6-10.8); Carbon Dioxide 22 mEq/L (19-29); Chloride 108 mEq/L (98-109); Glucose 78 mg/dL (70-99); Osmolality,Calculated 297 (280-300); Potassium 3.6 mEq/L (3.5-4.5); Sodium 143 mEq/L (136-145); eGFR For African Americans > 60 (> 60); eGFR For Non-African Americans > 60 (> 60)
[2017-05-26 21:14] LABS: Acetaminophen < 1.0 mcg/mL (10-30); Ethanol < 10 mg/dL (0-10); Salicylate < 5.0 mg/dL (15-30)
[2017-05-26 21:17] LABS: Amphetamine Screen,Urine Positive ng/mL (Cutoff=1000); Barbiturate Screen,Urine Negative ng/mL (Cutoff=200); Benzodiazepines Screen,Urine Positive ng/mL (Cutoff=200); Cannabinoid Screen,Urine Positive ng/mL (Cutoff = 50); Cocaine Screen,Urine Positive ng/mL (Cutoff= 300); Opiate Screen,Urine Positive ng/mL (Cutoff=300); Phencyclidine Screen,Urine Negative ng/mL (Cutoff=25)
[2017-05-26 21:20] LABS: Mucus,Urine Many (Few)
[2017-05-26 21:33] LABS: Thyroid Stimulating Hormone 1.153 mcIU/mL (0.350-4.840)
--- NOTE | 2017-05-27 05:40 | Emergency Department Note ---
START Narrative - START START: This patient was signed out at shift change from Dr. Shaikh and Dr. Miguel Cesar. Please refer to their notes for complete details of the history and physical examination. Patient here for psychiatric evaluation. She was sedated with Haldol and Ativan and became too drowsy for the psychiatry service to evaluate her. She will be evaluated when she is alert. She has slept throughout the night. She does arouse to physical stimuli but is still extremely drowsy and cannot stay awake. [facility] Dr. Corona.
--- NOTE | 2017-05-27 07:54 | Emergency Department Note ---
Disposition Clinical Impression: Acute psychosis Altered mental status Qualifiers: Altered mental status type: disorientation Qualified Code(s): R41.0 - Disorientation, unspecified Disposition: Admitted As Inpatient Condition: Good Time of Disposition: 11:57 General Adult HPI - General Chief complaint: ED Psychiatric Symptoms Stated complaint: ANXIOUS Time Seen by Provider: 05/26/17 19:52 Source: patient, EMS Mode of arrival: EMS Limitations: no limitations Nursing Notes Reviewed: Yes Vital Signs Reviewed: Yes - History of Present Illness Pain Scale: 0 - Related Data Home Medications Medication Instructions Recorded Confirmed Venlafaxine [Effexor] 75 mg PO TID 01/27/16 05/27/17 Omeprazole [PriLOSEC] 20 mg PO DAILY 08/02/16 05/27/17 Sucralfate [Carafate] 1 gm PO QID 08/02/16 05/27/17 Albuterol Sulfate [Proair Hfa] 2 puff IH Q4H PRN 12/15/16 05/27/17 Gabapentin [Neurontin] 800 mg PO TID 12/15/16 05/27/17 clonazePAM [Klonopin] 1 mg PO BID 12/15/16 05/27/17 Furosemide [Lasix] 20 mg PO BID PRN 05/27/17 05/27/17 Previous Rx's Medication Instructions Recorded Acetaminophen [Tylenol] 650 mg PO Q6HR PRN #14 tablet 12/21/16 Allergies Allergy/AdvReac Type Severity Reaction Status Date / Time ibuprofen Allergy Rash Verified 01/27/16 04:16 tramadol [From Ultram] Allergy Rash Verified 01/27/16 04:16 Limitations: ROS unobtainable due to patients medical condition Past Medical History - Past Medical History Attestation: Yes The following information was validated with the patient. Source: patient Medical history: Reports: GERD, hepatitis, hyperlipidemia, hypertension, other Surgical history: Reports: other (Laparotomy for perforated gastric ulcer) Psychiatric history: Reports: anxiety, bipolar, depression, schizophrenia, previous psychiatric hospitalization RELISH BLENDER history: Reports: no RELISH BLENDER history - Social History Smoking Status: Current every day smoker Smokeless Tobacco Status: No Alcohol use: Reports: none Drug use: Reports: none, cocaine, opiates, marijuana, methamphetamine, prescription drug abuse Physical Exam - General Limitations: no limitations General appearance: alert, anxious, other (appears unkempt, poor eye contact, answers questions evasively ) - Head Head exam: atraumatic, normocephalic, normal inspection - Eye Eye exam: Present: normal appearance, PERRL, EOMI. Absent: scleral icterus - ENT ENT exam: normal exam, normal oropharynx, mucous membranes moist - Neck Neck exam: Present: normal inspection, full ROM, trachea midline. Absent: tenderness, meningismus, lymphadenopathy - Chest Chest inspection: Present: normal inspection, symmetric chest wall rise. Absent : tenderness - Respiratory Respiratory exam: Present: normal lung sounds bilaterally. Absent: respiratory distress, wheezes, accessory muscle use - Cardiovascular Cardiovascular exam: Present: regular rate, normal rhythm, normal heart sounds - Abdominal Exam Abdominal exam: Present: soft, Non-Tender, normal bowel sounds. Absent: tenderness, distention, guarding, rebound, rigidity - Extremities Exam Extremities exam: Present: normal inspection, full ROM, normal capillary refill. Absent: tenderness, pedal edema - Back Exam Back exam: Present: normal inspection, full ROM - Neurological Exam Neurological exam: Present: alert, other (Patient is sleepy but is aware of them her name and where she is.) - Psychiatric Psychiatric exam: Present: normal affect, normal mood - Skin Skin exam: Present: warm, dry, intact, normal color. Absent: rash, cyanosis, diaphoresis, erythema Course Course Narrative: Patient signed out by overnight caregiver. Please see their note for further. The plan for the patient today is to arouse her and have her evaluated by one day. On arrival to the room she is still hard to arouse. She does arouse with a sternal rub has slurred speech and quickly goes back to sleep. She does not appear to be in any distress. She does note she is at the hospital. She is aware of her name. Lung sounds are clear heart tones are normal. - Reevaluation(s) Reevaluation #1: Patient is arousable. She sat up in bed and we are ordering her breakfast tray. She does still appear very sleepy but is aware of her name and where she is. We will contact [facility] to come do an evaluation on patient. We will order patient a breakfast tray as well. She is complaining of left sided back pain. This appears to be around L1-L2 paravertebral muscles. There is no ecchymosis. . Time: 08:04 Reevaluation #2: Patient was provided with food but quickly goes to sleep. When he attempted to evaluate her however she would not cooperate. We will scan patient's head while she is here and admitted to the hospital. Time: 09:38 Reevaluation #3: Patient's head CT was grossly normal. We will admit patient to the hospital. Dr. Purcell who has been made aware of the patient. - Consultations Consultation #1: Dr. Doshi accepted patient in stable condition. Vital Signs Temperature 98.2 F 05/26/17 19:49 Pulse Rate 86 05/26/17 19:49 Respiratory Rate 22 05/26/17 19:49 Blood Pressure 145/112 05/26/17 19:49 O2 Sat by Pulse Oximetry 99 05/26/17 19:49 Temperature 98.2 F 05/26/17 19:49 Pulse Rate 67 05/27/17 03:02 Respiratory Rate 0 05/27/17 11:31 Blood Pressure 0/0 05/27/17 11:31 O2 Sat by Pulse Oximetry 99 05/27/17 03:02 Oxygen Delivery Oxygen Delivery Nasal Cannula Medical Decision Making - Medical Records Medical records reviewed: Yes I reviewed the patient's medical records. - Lab Data Lab results reviewed: Yes I reviewed the patient's lab results. Result diagrams: 05/26/17 20:54 05/26/17 20:54 Lab Results 05/26/17 05/26/17 05/26/17 Range/Units 20:54 20:54 21:00 WBC 7.7 (4.3-11.1) K/mcL RBC 4.53 (3.82-4.97) M/mcL Hgb 12.6 (11.5-15.4) g/dL Hct 39.4 (35.3-44.9) % MCV 87.0 (83.0-100.0) fL MCH 27.8 L (28.0-33.3) pg MCHC 32.0 (31.6-35.5) g/dL RDW 14.4 (11.5-14.5) % Plt Count 241 (140-400) K/mcL MPV 9.6 (9.4-12.4) fL Immature Gran % 0.3 (0-4) % Seg Neutrophils % 48.7 % Lymphocytes % 40.3 % Monocytes % 7.7 % Eosinophils % 2.2 % Basophils % 0.8 % Neutrophils # 3.8 (1.6-8.9) K/mcL Lymphocytes # 3.1 (0.6-4.6) K/mcL Monocytes # 0.6 (0.0-1.3) K/mcL Eosinophils # 0.2 (0.0-0.6) K/mcL Basophils # 0.1 (0.0-0.2) K/mcL Sodium 143 (136-145) mEq/L Potassium 3.6 (3.5-4.5) mEq/L Chloride 108 (98-109) mEq/L Carbon Dioxide 22 (19-29) mEq/L BUN 18 (7-20) mg/dL Creatinine 0.65 (0.57-1.11) mg/dL Est GFR ( Amer) > 60 (> 60) Est GFR (Non-Af Amer) > 60 (> 60) BUN/Creatinine Ratio 28 H (6-26) Glucose 78 (70-99) mg/dL Calculated Osmolality 297 (280-300) Calcium 9.8 (8.6-10.8) mg/dL TSH 1.153 (0.350-4.840) mcIU/mL Urine Color Dark Yellow (Yellow) Urine Clarity Clear (Clear) Urine pH 6.0 (5.0-8.0) pH Units Ur Specific [place] 1.027 H (1.010-1.025) Urine Protein Negative (Neg-Trace) mg/dL Urine Glucose (UA) Normal (Normal) mg/dL Urine Ketones Trace H (Negative) mg/dL Urine Blood Negative (Negative) Urine Nitrite Negative (Negative) Urine Bilirubin Small H (Negative) Urine Urobilinogen Normal (Normal) mg/dL Ur Leukocyte Esterase Small H (Negative) Urine Microscopic RBC 5-15 H (0-3) per hpf Urine Microscopic WBC 5-15 H (0-3) per hpf Ur Squamous Epith Cells Many H (None-Few) per lpf Urine Bacteria None Seen (None-Few) per hpf Hyaline Casts Few (None-Few) per lpf Urine Mucus Many H (Few) Urine Test (Negative) Salicylates < 5.0 L (15-30) mg/dL Urine Opiates Screen (Zxivzb=800) ng/mL Acetaminophen < 1.0 L (10-30) mcg/mL Ur Barbiturates Screen (Ssyoqh=432) ng/mL Ur Phencyclidine Scrn (Cutoff=25) ng/mL Ur Amphetamines Screen (Ihhduz=9467) ng/mL U Benzodiazepines Scrn (Fdwmam=174) ng/mL Urine Cocaine Screen (Cutoff= 300) ng/mL U Marijuana (THC) Screen (Cutoff = 50) ng/mL Ethyl Alcohol < 10 (0-10) mg/dL 05/26/17 05/26/17 Range/Units 21:00 21:00 WBC (4.3-11.1) K/mcL RBC (3.82-4.97) M/mcL Hgb (11.5-15.4) g/dL Hct (35.3-44.9) % MCV (83.0-100.0) fL MCH (28.0-33.3) pg MCHC (31.6-35.5) g/dL RDW (11.5-14.5) % Plt Count (140-400) K/mcL MPV (9.4-12.4) fL Immature Gran % (0-4) % Seg Neutrophils % % Lymphocytes % % Monocytes % % Eosinophils % % Basophils % % Neutrophils # (1.6-8.9) K/mcL Lymphocytes # (0.6-4.6) K/mcL Monocytes # (0.0-1.3) K/mcL Eosinophils # (0.0-0.6) K/mcL Basophils # (0.0-0.2) K/mcL Sodium (136-145) mEq/L Potassium (3.5-4.5) mEq/L Chloride (98-109) mEq/L Carbon Dioxide (19-29) mEq/L BUN (7-20) mg/dL Creatinine (0.57-1.11) mg/dL Est GFR ( Amer) (> 60) Est GFR (Non-Af Amer) (> 60) BUN/Creatinine Ratio (6-26) Glucose (70-99) mg/dL Calculated Osmolality (280-300) Calcium (8.6-10.8) mg/dL TSH (0.350-4.840) mcIU/mL Urine Color (Yellow) Urine Clarity (Clear) Urine pH (5.0-8.0) pH Units Ur Specific [place] (1.010-1.025) Urine Protein (Neg-Trace) mg/dL Urine Glucose (UA) (Normal) mg/dL Urine Ketones (Negative) mg/dL Urine Blood (Negative) Urine Nitrite (Negative) Urine Bilirubin (Negative) Urine Urobilinogen (Normal) mg/dL Ur Leukocyte Esterase (Negative) Urine Microscopic RBC (0-3) per hpf Urine Microscopic WBC (0-3) per hpf Ur Squamous Epith Cells (None-Few) per lpf Urine Bacteria (None-Few) per hpf Hyaline Casts (None-Few) per lpf Urine Mucus (Few) Urine Test Negative (Negative) Salicylates (15-30) mg/dL Urine Opiates Screen Positive H (Zmgxnv=576) ng/mL Acetaminophen (10-30) mcg/mL Ur Barbiturates Screen Negative (Nvrbkb=125) ng/mL Ur Phencyclidine Scrn Negative (Cutoff=25) ng/mL Ur Amphetamines Screen Positive H (Xwixqz=0117) ng/mL U Benzodiazepines Scrn Positive H (Xhrisx=348) ng/mL Urine Cocaine Screen Positive H (Cutoff= 300) ng/mL U Marijuana (THC) Screen Positive H (Cutoff = 50) ng/mL Ethyl Alcohol (0-10) mg/dL - Radiology Data Radiology results reviewed: Yes I reviewed the patient's radiology results. Head CT 05/27/17 09:37 IMPRESSION: No acute intracranial abnormality. D/ / Nik Morales MD / Nik Morales MD Interpreting Provider: Nik Morales MD Attestation Statement - Attestation Attestation: Patient was seen with resident physician. I reviewed the history, physical, assessment and plan, and agree with the findings. I also personally evaluated this patient and had [id number] time with this patient. 52-year-old female was signed out to us by the overnight caregiver team with increased somnolence status post treatment for anxiety. Patient continually has had somnolence throughout her stay. We did do a head CT scan which did not reveal any acute abnormalities. After a total of 13 or so hours of observation, we felt that admission to the hospital for mental status checks and neuro checks was indicated. We spoke with the hospitalist and arrange for admission. Once patient has improved to the point that one A to evaluate her this can be done on the floor. Agree with resident physician assessment plan.
--- NOTE | 2017-05-27 13:04 | Internal Med History&Physical ---
Date of Encounter: 05/27/17 Time of Encounter: 13:01 Assessment and Plan (1) Polysubstance abuse Current visit: Yes Status: Acute Social service consult. Avoid IV opiates. Use IV benzodiazepines sparingly only as needed for extreme agitation. We will provide nicotine transdermal therapy. (2) Encephalopathy acute Current visit: Yes Status: Acute Likely secondary to polysubstance abuse as well as administration of cold on Ativan. Aspiration precautions. Safety observation. IV fluids. (3) Anxiety Current visit: No Status: Chronic To be evaluated by psychiatry after she wakes up (4) Depression Current visit: No Status: Chronic Psychiatry consult. Qualifiers: Depression Type: unspecified Qualified Code(s): F32.9 - Major depressive disorder, single episode, unspecified (5) Hepatitis C Current visit: No Status: Chronic LFTs from November 2016 were reviewed in the medical record. No abnormalities. Repeat LFTs in the morning. Outpatient follow-up. Qualifiers: Viral hepatitis chronicity: chronic Hepatic coma status: without hepatic coma Qualified Code(s): B18.2 - Chronic viral hepatitis C (6) IVDU (intravenous drug user) Current visit: No Status: Chronic Avoid all intravenous controlled substances. Social service consult. (7) Homelessness Current visit: Yes Status: Acute Per prior reports the patient is homeless. She clearly has unsafe living situation likely secondary to polysubstance abuse and mental illness. Currently she does not have decision-making capacity whether or not she needs to stay in the hospital. Therefore she will not be allowed to sign out AMA. She will need to be evaluated by psychiatry prior to discharge. Internal Medicine - H&P: HPI Chief complaint: Altered mental status Admitted From: Emergency Dept Plans for Post Hospital Care: Home History of present illness: Ms. Mccallum is a 52 year old female with no significant past medical history, some psychiatric history was brought to the hospital by EMS. The patient cannot provide any meaningful history due to profound sedation. History of some obtained from patient's chart. She was found outdoors in the community lying down by a car wash and difficult to arouse and somnolent unclear if she was passed out or just asleep. EMS was called and she was brought to the hospital. There was no sign of trauma, injury or physical abuse. Urine drug screen was positive for multiple drugs of abuse. Upon evaluation she was deemed unsafe for discharge home and requiring a psychiatric evaluation. She became agitated and was chemically restrained with cold all and Ativan. Currently the patient remains sedated, arousable, answers basic questions. Past medical, surgical, family history and social history and review of systems could not be obtained due to patient's sedated state. Past Med Surg Social Fam HX - Past Medical History Medical history: GERD, hepatitis, hyperlipidemia, hypertension, other Psychiatric history: anxiety, bipolar, depression, schizophrenia, previous psychiatric hospitalization - Past Surgical History Surgical History: other (Laparotomy for perforated gastric ulcer) - Social History Smoking Status: Current every day smoker Smokeless Tobacco Status: No Alcohol use: none Drug use: none, cocaine, opiates, marijuana, methamphetamine, prescription drug abuse Internal Medicine - H&P: Meds Venlafaxine [Effexor] 75 mg PO TID 01/27/16 [History] Omeprazole [PriLOSEC] 20 mg PO DAILY 08/02/16 [History] Sucralfate [Carafate] 1 gm PO QID 08/02/16 [History] Albuterol Sulfate [Proair Hfa] 2 puff IH Q4H PRN 12/15/16 [History] Gabapentin [Neurontin] 800 mg PO TID 12/15/16 [History] clonazePAM [Klonopin] 1 mg PO BID 12/15/16 [History] Acetaminophen [Tylenol] 650 mg PO Q6HR PRN #14 tablet 12/21/16 [Rx] Furosemide [Lasix] 20 mg PO BID PRN 05/27/17 [History] 3 Allergy/AdvReac Type Severity Reaction Status Date / Time ibuprofen Allergy Rash Verified 01/27/16 04:16 tramadol [From Ultram] Allergy Rash Verified 01/27/16 04:16 All Systems PM: A 10-system review of systems was performed and is negative for pertinent findings except as documented above in the HPI. - Constitutional Vitals: Temp Pulse Resp BP Pulse Ox 97.6 F 72 16 92/59 99 05/27/17 11:51 05/27/17 11:51 05/27/17 11:51 05/27/17 11:51 05/27/17 11:51 Exam: Sleep, arousable, sedated and drowsy. - Eye Eye exam: Present: PERRL, conjuntiva pink, sclera anicteric Pupils: Present: PERRL - Neck Neck exam general surgery: Present: supple, trachea midline. Absent: lymphadenopathy - Respiratory Respiratory exam: Present: CTAB. Absent: accessory muscle use (Who was), rales , rhonchi, wheezes - Cardiovascular Cardiovascular exam: Present: RRR, +S1, +S2. Absent: diastolic murmur, gallop, rubs, systolic murmur - GI/Abdominal GI/Abdominal exam: Present: normal bowel sounds, soft, no peritoneal signs. Absent: distended, tenderness - Extremities Exam Extremities exam: Present: warm, radial pulses palpable and symmetrical. Absent : calf tenderness, cyanotic, pedal edema - Skin Skin exam: Present: dry, intact Internal Med - H&P Results - Labs CBC & Chem 7: 05/26/17 20:54 05/26/17 20:54 - EKG Data -: EKG Interpreted by Myself EKG shows normal: sinus rhythm, ST-T waves Rate: tachycardia
[2017-05-27] MEDS ORDERED: Mag Hydrox/Al Hydrox/Simeth 30 ML UDC PO PRN (13:27)
[2017-05-27] MEDS ORDERED: Naloxone 0.4 MG/ML INJ IVP PRN (13:27)
[2017-05-27] MEDS ORDERED: 0.9 % Sodium Chloride 1,000 ML IVC SCH (14:00)
--- NOTE | 2017-05-27 21:07 | Electrocardiograph Report ---
[facility] Test Date: 2017-05-26 Pat Name: Gypsy Mccallum Department: 103 Room: 3B12 Gender: F [employer]: VL : 1965 Requested By: Jonatan Shaikh Order Number: [id number] Reading MD: Nathan Loza MD Measurements Intervals [place] Rate: 80 P: 72 DE: 101 QRS: 64 QRSD: 93 T: 59 QT: 361 QTc: 396 Interpretive Statements SINUS RHYTHM WITH SHORT DE INTERVAL NONSPECIFIC T-WAVE ABNORMALITY Electronically Signed On 05-27-2017 21:06:33 EDT by Nathan Loza MD
[2017-05-28 04:58] LABS: Basophils # 0.1 K/mcL (0.0-0.2); Basophils % 0.8 %; Eosinophils # 0.1 K/mcL (0.0-0.6); Eosinophils % 1.5 %; Hematocrit 37.7 % (35.3-44.9); Hemoglobin 11.8 g/dL (11.5-15.4); Immature Granulocytes % 0.1 % (0-4); Lymphocytes # 2.8 K/mcL (0.6-4.6); Lymphocytes % 32.4 %; Mean Corpuscular HGB Conc 31.3 g/dL (31.6-35.5); Mean Corpuscular Hemoglobin 28.4 pg (28.0-33.3); Mean Corpuscular Volume 90.6 fL (83.0-100.0); Mean Platelet Volume 9.9 fL (9.4-12.4); Monocytes # 0.5 K/mcL (0.0-1.3); Neutrophils # 5.2 K/mcL (1.6-8.9); Platelet Count 219 K/mcL (140-400); Red Blood Count 4.16 M/mcL (3.82-4.97); Red Cell Distribution Width 14.6 % (11.5-14.5); Segmented Neutrophils % 59.2 %
[2017-05-28 05:17] LABS: Alanine Aminotransferase 19 Units/L (0-55); Alkaline Phosphatase 89 Units/L (38-126); Aspartate Amino Transferase 29 Units/L (5-34); BUN/Creatinine Ratio 30 (6-26); Bilirubin,Total 0.7 mg/dL (0.2-1.2); Blood Urea Nitrogen 17 mg/dL (7-20); Calcium 8.8 mg/dL (8.6-10.8); Carbon Dioxide 17 mEq/L (19-29); Chloride 109 mEq/L (98-109); Osmolality,Calculated 290 (280-300); Potassium 3.5 mEq/L (3.5-4.5); Sodium 141 mEq/L (136-145); eGFR For African Americans > 60 (> 60); eGFR For Non-African Americans > 60 (> 60)
[2017-05-28 05:53] LABS: Glucose 39 mg/dL (70-99)
[2017-05-28] MEDS ORDERED: *HR* Dextrose 50 % in Water (Syg) 50 ML SYRINGE IVP ONE (06:03)
[2017-05-28] MEDS ORDERED: Dextrose Gel 15 GM PO PRN ×2 (08:30)
[2017-05-28] MEDS ORDERED: D5% in Water 1,000 ML IVC PRN (08:30)
[2017-05-28] MEDS ORDERED: *HR* Dextrose 50 % in Water (Syg) 50 ML SYRINGE IVP PRN (08:30)
[2017-05-28 09:30] LABS: Hemoglobin A1C 5.1 %
--- NOTE | 2017-05-28 11:22 | Consult Note ---
Date of Encounter: 05/28/17 Time of Encounter: 09:45 Assessment & Recommendation (1) MDD (major depressive disorder), recurrent episode, severe Current visit: No Status: Acute Assessment & Recommendation: Restart effexor xr 75 mg bid for 2 days then tid. patient at present not in imenent danger to self/others. needs out patient follow up appointment. Qualifiers: Psychotic features: without psychotic features Qualified Code(s): F33.2 - Major depressive disorder, recurrent severe without psychotic features (2) Anxiety Current visit: No Status: Chronic Assessment & Recommendation: will start vistaril 25 mg prn bid. (3) Polysubstance dependence Current visit: No Status: Acute Assessment & Recommendation: education given about out patient chemical dependence programme , she has partial insight in her substance use. educated no drugs with her medications, Patient acknowledged. History of Present Illness Requesting Physician: Galilea Hair CNP Reason for consult: depression , anxiety , unsafe living condition. History of present illness: Ms. Mccallum is a 52 year old female consulted today for depression , anxiety and unstable living condition. She is alert able to give history ,has h/o depression and anxiety and has been on medications off and on thru out her life as per her, she has been on effexor for 7 years and as per her if she does not take it she gets agitated and upset , she has not taken for 2-3 days and had lost her book bag , she is preoccupied with getting her Effexor back. she has not made to her out patient appointments to [facility], [facility] she gets effexor from Dr Copeland as per her. She minimizes her drug intake , states used to but not as much , her tox. screen was positive for opiates, amphetamine, marijuana,cocain and benzo. Patient at present is somewhat irritable, correia , states gets like this if misses effexor , she is not suicidal/homicidal at present. she states she is homeless and did not OD , she denies psychosis, no manic episode. She has Boy friend and sometimes live with him. Past psych history : She has 2 psych inpatient for depression , but did not follow as out patient. Family history : she is adapted , does not know her family . denies any legal problems. A/P Depression and anxiety by history. Poly substance use disorder. Patient at present not in danger to self/others. 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 Chemical dependence / rehab if she agrees. Psychiatric out patient appointment with [facility] Start Effexor XR 75 mg bid . for anxiety Vistaril 25 mg bid prn . Thank you for consult. will sign out. CC: Galilea Hair, HETAL Past Med Surg Social Fam HX - Past Medical History Medical history: GERD, hepatitis, hyperlipidemia, hypertension, other - Past Psychiatric History Psychiatric history: Reports: anxiety, depression, previous psychiatric hospitalization Family psychiatric history: Unknown Family History of Suicide: Unknown - Past Surgical History Surgical History: other - Social History Smoking Status: Current every day smoker Smokeless Tobacco Status: No Alcohol use: none Drug use: cocaine, opiates, marijuana, methamphetamine, IV Drug Use, prescription drug abuse Medications & Allergies Venlafaxine [Effexor] 75 mg PO TID 01/27/16 [History] Omeprazole [PriLOSEC] 20 mg PO DAILY 08/02/16 [History] Sucralfate [Carafate] 1 gm PO QID 08/02/16 [History] Albuterol Sulfate [Proair Hfa] 2 puff IH Q4H PRN 12/15/16 [History] Gabapentin [Neurontin] 800 mg PO TID 12/15/16 [History] clonazePAM [Klonopin] 1 mg PO BID 12/15/16 [History] Acetaminophen [Tylenol] 650 mg PO Q6HR PRN #14 tablet 12/21/16 [Rx] Furosemide [Lasix] 20 mg PO BID PRN 05/27/17 [History] 3 Allergy/AdvReac Type Severity Reaction Status Date / Time ibuprofen Allergy Rash Verified 01/27/16 04:16 tramadol [From Ultram] Allergy Rash Verified 01/27/16 04:16 Review of Systems Psychiatric: Reports: depression, anxiety Mental Status Exam Patient orientation: Yes Person, Yes Time, Yes Place Level of alertness: Alert Patient appearance: Appropriate Behavior: cooperative, anxious Psychomotor activity: Normal Eye contact: Maintains Eye Contact Mood description: Anxious, Irritable Affect description: congruent with mood Speech pattern: Coherent Speech volume: Normal Thought process: Intact Thought content: Yes Preoccupation Attention span: Unable to Sustain Attention Patient reliability: Questionable Historian Intelligence estimate: Average Judgment: Good Insight: Partial (patient has partial insight in her substance abuse.) Results - Vital Signs Vital signs: Temp Pulse Resp BP Pulse Ox 98.5 F 82 14 100/64 93 05/28/17 07:19 05/28/17 07:19 05/28/17 07:19 05/28/17 07:19 05/28/17 07:19 - Labs Labs: Laboratory Last Values WBC 8.7 K/mcL (4.3-11.1) 05/28/17 04:41 RBC 4.16 M/mcL (3.82-4.97) 05/28/17 04:41 Hgb 11.8 g/dL (11.5-15.4) 05/28/17 04:41 Hct 37.7 % (35.3-44.9) 05/28/17 04:41 MCV 90.6 fL (83.0-100.0) 05/28/17 04:41 MCH 28.4 pg (28.0-33.3) 05/28/17 04:41 MCHC 31.3 g/dL (31.6-35.5) L 05/28/17 04:41 RDW 14.6 % (11.5-14.5) H 05/28/17 04:41 Plt Count 219 K/mcL (140-400) 05/28/17 04:41 MPV 9.9 fL (9.4-12.4) 05/28/17 04:41 Immature Gran % 0.1 % (0-4) 05/28/17 04:41 Seg Neutrophils % 59.2 % 05/28/17 04:41 Lymphocytes % 32.4 % 05/28/17 04:41 Monocytes % 6.0 % 05/28/17 04:41 Eosinophils % 1.5 % 05/28/17 04:41 Basophils % 0.8 % 05/28/17 04:41 Neutrophils # 5.2 K/mcL (1.6-8.9) 05/28/17 04:41 Lymphocytes # 2.8 K/mcL (0.6-4.6) 05/28/17 04:41 Monocytes # 0.5 K/mcL (0.0-1.3) 05/28/17 04:41 Eosinophils # 0.1 K/mcL (0.0-0.6) 05/28/17 04:41 Basophils # 0.1 K/mcL (0.0-0.2) 05/28/17 04:41 Sodium 141 mEq/L (136-145) 05/28/17 04:41 Potassium 3.5 mEq/L (3.5-4.5) 05/28/17 04:41 Chloride 109 mEq/L (98-109) 05/28/17 04:41 Carbon Dioxide 17 mEq/L (19-29) L 05/28/17 04:41 BUN 17 mg/dL (7-20) 05/28/17 04:41 Creatinine 0.56 mg/dL (0.57-1.11) L 05/28/17 04:41 Est GFR ( Amer) > 60 (> 60) 05/28/17 04:41 Est GFR (Non-Af Amer) > 60 (> 60) 05/28/17 04:41 BUN/Creatinine Ratio 30 (6-26) H 05/28/17 04:41 Glucose 39 mg/dL (70-99) L* 05/28/17 04:41 POC Glucose 203 (58-89) H 05/28/17 06:30 Est Mean Plasma Glucose 100 mg/dl 05/28/17 04:41 Hemoglobin A1c 5.1 % (-5.6) 05/28/17 04:41 Calculated Osmolality 290 (280-300) 05/28/17 04:41 Calcium 8.8 mg/dL (8.6-10.8) 05/28/17 04:41 Total Bilirubin 0.7 mg/dL (0.2-1.2) 05/28/17 04:41 AST 29 Units/L (5-34) 05/28/17 04:41 ALT 19 Units/L (0-55) 05/28/17 04:41 Alkaline Phosphatase 89 Units/L (38-126) 05/28/17 04:41 Serum Total Protein 6.0 g/dL (6.0-8.3) 05/28/17 04:41 Albumin 3.0 g/dL (3.5-5.0) L 05/28/17 04:41 Globulin 3.0 g/dL (2.4-3.5) 05/28/17 04:41 Albumin/Globulin Ratio 1.0 (1.1-2.2) L 05/28/17 04:41 TSH 1.153 mcIU/mL (0.350-4.840) 05/26/17 20:54 Urine Color Dark Yellow (Yellow) 05/26/17 21:00 Urine Clarity Clear (Clear) 05/26/17 21:00 Urine pH 6.0 pH Units (5.0-8.0) 05/26/17 21:00 Ur Specific [place] 1.027 (1.010-1.025) H 05/26/17 21:00 Urine Protein Negative mg/dL (Neg-Trace) 05/26/17 21:00 Urine Glucose (UA) Normal mg/dL (Normal) 05/26/17 21:00 Urine Ketones Trace mg/dL (Negative) H 05/26/17 21:00 Urine Blood Negative (Negative) 05/26/17 21:00 Urine Nitrite Negative (Negative) 05/26/17 21:00 Urine Bilirubin Small (Negative) H 05/26/17 21:00 Urine Urobilinogen Normal mg/dL (Normal) 05/26/17 21:00 Ur Leukocyte Esterase Small (Negative) H 05/26/17 21:00 Urine Microscopic RBC 5-15 per hpf (0-3) H 05/26/17 21:00 Urine Microscopic WBC 5-15 per hpf (0-3) H 05/26/17 21:00 Ur Squamous Epith Cells Many per lpf (None-Few) H 05/26/17 21:00 Urine Bacteria None Seen per hpf (None-Few) 05/26/17 21:00 Hyaline Casts Few per lpf (None-Few) 05/26/17 21:00 Urine Mucus Many (Few) H 05/26/17 21:00 Urine Test Negative (Negative) 05/26/17 21:00 Salicylates < 5.0 mg/dL (15-30) L 05/26/17 20:54 Urine Opiates Screen Positive ng/mL (Tlzkwp=111) H 05/26/17 21:00 Acetaminophen < 1.0 mcg/mL (10-30) L 05/26/17 20:54 Ur Barbiturates Screen Negative ng/mL (Vdnwmi=430) 05/26/17 21:00 Ur Phencyclidine Scrn Negative ng/mL (Cutoff=25) 05/26/17 21:00 Ur Amphetamines Screen Positive ng/mL (Vaxiew=2305) H 05/26/17 21:00 U Benzodiazepines Scrn Positive ng/mL (Wbmxzw=858) H 05/26/17 21:00 Urine Cocaine Screen Positive ng/mL (Cutoff= 300) H 05/26/17 21:00 U Marijuana (THC) Screen Positive ng/mL (Cutoff = 50) H 05/26/17 21:00 Ethyl Alcohol < 10 mg/dL (0-10) 05/26/17 20:54 Consult Discharge Plan - Plan Referrals: Kalin Copeland, PAC [Primary Care Provider] -
--- NOTE | 2017-05-28 11:52 | Discharge Summary ---
Date of Encounter: 05/28/17 Time of Encounter: 11:48 - Discharge Medications Home Medications: Venlafaxine [Effexor] 75 mg PO TID 01/27/16 [History] Omeprazole [PriLOSEC] 20 mg PO DAILY 08/02/16 [History] Sucralfate [Carafate] 1 gm PO QID 08/02/16 [History] Albuterol Sulfate [Proair Hfa] 2 puff IH Q4H PRN 12/15/16 [History] Gabapentin [Neurontin] 800 mg PO TID 12/15/16 [History] clonazePAM [Klonopin] 1 mg PO BID 12/15/16 [History] Acetaminophen [Tylenol] 650 mg PO Q6HR PRN #14 tablet 12/21/16 [Rx] Furosemide [Lasix] 20 mg PO BID PRN 05/27/17 [History] Allergies/Adverse Reactions: 3 Allergy/AdvReac Type Severity Reaction Status Date / Time ibuprofen Allergy Rash Verified 01/27/16 04:16 tramadol [From Ultram] Allergy Rash Verified 01/27/16 04:16 Date of admission: 05/27/17 10:40 Primary care physician: Kalin Copeland Consults: 05/27/17 13:29 Consult to Psychiatry [CONS] Routine Consulting Provider: Psychiatry Sofia Reason for Consult: Depression, anxiety, unsafe living situation Call Completed: Yes Consult to [place] [CONS] Routine Reason for SW Consult: Polysubstance abuse, homeless - Patient Status Condition: Good - Discharge Instructions Follow Up With: Kalin Copeland, PAC [Primary Care Provider] - Hospital course: Ms. Mccallum is a 52 year old female - Time Spent with Patient Total time spent providing and/or coordinating discharge services: - Constitutional Vitals: Temp Pulse Resp BP Pulse Ox 98.3 F 84 14 144/83 95 05/28/17 11:19 05/28/17 11:19 05/28/17 11:19 05/28/17 11:19 05/28/17 11:19
--- NOTE | 2017-05-28 12:04 | Internal Med Progress Note ---
Date of Encounter: 05/28/17 Time of Encounter: 11:53 - Assessment and plan (1) MDD (major depressive disorder), recurrent episode, severe Current Visit: No Status: Acute Assessment and plan: Gypsy Mccallum is a 52-year-old female with past medical history depression, anxiety and polysubstance abuse who presented to [facility] on 05/27/2017 after being found unresponsive and parking lot. She was admitted for further workup and treatment. She was initially pink slipped and monitored with one-on-one sitter however she was evaluated by psychiatry who did not feel patient was a danger to self or others. Major depressive disorder: per hx. On effexor at home but has not taken for the alst 2-3 days. Evaluated by Psych who did not feel patient at present is not a danger to self/others. Restart effexor XR 75 mg bid. Will need Psychiatric out patient appointment with [facility] Qualifiers: Psychotic features: without psychotic features Qualified Code(s): F33.2 - Major depressive disorder, recurrent severe without psychotic features (2) Hypoglycemia Current Visit: Yes Status: Acute Assessment and plan: blood glucose 39 on morning labs. Patient reports she has not eaten for 3 days prior to admission; amp dextrose. Now eating regular diet. Monitor blood sugars (3) Anxiety Current Visit: No Status: Chronic Assessment and plan: per hx. Evaluated by Psych who recommended vistaril 25 mg prn bid anxiety. (4) Polysubstance abuse Current Visit: Yes Status: Acute Assessment and plan: known hx drug abse. Was found down on day of admission. Head CT negative. UDS positive for cocaine, benzos, amphetamines and opiates. Mentation appropriate and back to baseline. Cessation strongly encouraged. (5) DVT prophylaxis Current Visit: No Status: Acute - Subjective Interval history: Seen and examined at bedside, says she is groggy and tired but feels better. She does not remember the events that lead up to her being brought to hospital Discussed UDS with her and she denies cocain and benzo use. Has a cough, no CP or SOB. - Constitutional Vitals: Temp Pulse Resp BP Pulse Ox 98.3 F 84 14 144/83 95 05/28/17 11:19 05/28/17 11:19 05/28/17 11:19 05/28/17 11:19 05/28/17 11:19 General appearance: Present: disheveled, A&O X 3 - Head Head exam: Present: atraumatic, normocephalic - Eye Eye exam: Present: PERRL, conjuntiva pink, sclera anicteric Pupils: Present: PERRL - Neck Neck exam general surgery: Present: supple, trachea midline. Absent: lymphadenopathy - Respiratory Respiratory exam: Present: CTAB. Absent: accessory muscle use, rales, rhonchi, wheezes - Cardiovascular Cardiovascular exam: Present: RRR, +S1, +S2. Absent: diastolic murmur, gallop, rubs, systolic murmur - GI/Abdominal GI/Abdominal exam: Present: normal bowel sounds, soft, no peritoneal signs. Absent: distended, tenderness - Extremities Exam Extremities exam: Present: warm, radial pulses palpable and symmetrical. Absent : calf tenderness, cyanotic, pedal edema - Neurological Exam Neurological exam: Present: CN II-XII intact, oriented X3, no focal deficits. Absent: pronater drift, facial droop, speech deficit - Skin Skin exam: Present: dry, intact Internal Medicine: Result - Labs CBC & Chem 7: 05/28/17 04:41 05/28/17 04:41 Labs: Short CBC 05/28/17 Range/Units 04:41 WBC 8.7 (4.3-11.1) K/mcL Hgb 11.8 (11.5-15.4) g/dL Hct 37.7 (35.3-44.9) % Plt Count 219 (140-400) K/mcL Neutrophils # 5.2 (1.6-8.9) K/mcL BMP 05/28/17 04:41 Sodium 141 Potassium 3.5 Chloride 109 Carbon Dioxide 17 L BUN 17 Creatinine 0.56 L Glucose 39 L* Calcium 8.8 Liver Function 05/28/17 Range/Units 04:41 Total Bilirubin 0.7 (0.2-1.2) mg/dL AST 29 (5-34) Units/L ALT 19 (0-55) Units/L Alkaline Phosphatase 89 (38-126) Units/L Albumin 3.0 L (3.5-5.0) g/dL Consult Discharge Plan - Plan Referrals: Kalin Copeland, PAC [Primary Care Provider] -
[2017-05-28] MEDS ORDERED: hydrOXYzine pamoate 25 MG CAPSULE PO PRN (12:09)
[2017-05-28] MEDS: *HR* Heparin 5,000 UNIT/ML VIAL SQ SCH ×2 (14:47→20:46)
[2017-05-28] MEDS: Sucralfate 1 GM TABLET PO SCH ×3 (14:47→20:46)
[2017-05-28] MEDS ORDERED: Ketorolac 30 MG/ML VIAL IVP ONE (14:59)
[2017-05-28 16:23] VITALS: BP 97/62
[2017-05-28 16:50] LABS: Bilirubin,Urine Negative (Negative); Blood,Urine Negative (Negative); Clarity,Urine Cloudy (Clear); Color,Urine Yellow (Yellow); Glucose,Urine (UA) Normal (Normal); Ketones,Urine Trace mg/dL (Negative); Leukocyte Esterase,Urine Negative (Negative); Nitrite,Urine Negative (Negative); Protein,Urine Negative (Neg-Trace); Specific Gravity,Urine 1.021 (1.010-1.025)
[2017-05-28 16:53] LABS: Bacteria,Urine Few per hpf (None-Few); Hyaline Casts,Urine None Seen per lpf (None-Few); RBC,Urine 0-3 per hpf (0-3); Squamous Epithelial Cell,Urine Many per lpf (None-Few)
[2017-05-28 17:07] LABS: Calcium Oxalate Crystals,Urine Present
[2017-05-28] MEDS: Acetaminophen 325 MG TABLET PO PRN (20:51)
[2017-05-29] MEDS: *HR* Heparin 5,000 UNIT/ML VIAL SQ SCH ×2 (05:20→13:01)
[2017-05-29] MEDS: Acetaminophen 325 MG TABLET PO PRN ×2 (05:37→12:57)
[2017-05-29 05:39] LABS: Hematocrit 39.3 % (35.3-44.9); Hemoglobin 12.4 g/dL (11.5-15.4); Mean Corpuscular HGB Conc 31.6 g/dL (31.6-35.5); Mean Corpuscular Volume 88.7 fL (83.0-100.0); Mean Platelet Volume 10.2 fL (9.4-12.4); Platelet Count 201 K/mcL (140-400); Red Blood Count 4.43 M/mcL (3.82-4.97); Red Cell Distribution Width 14.6 % (11.5-14.5)
[2017-05-29 05:53] LABS: Alanine Aminotransferase 20 Units/L (0-55); Albumin/Globulin Ratio 0.9 (1.1-2.2); Alkaline Phosphatase 90 Units/L (38-126); Aspartate Amino Transferase 24 Units/L (5-34); BUN/Creatinine Ratio 29 (6-26); Bilirubin,Total 0.4 mg/dL (0.2-1.2); Blood Urea Nitrogen 16 mg/dL (7-20); Calcium 9.2 mg/dL (8.6-10.8); Carbon Dioxide 26 mEq/L (19-29); Chloride 109 mEq/L (98-109); Globulin 3.2 g/dL (2.4-3.5); Glucose 87 mg/dL (70-99); Osmolality,Calculated 295 (280-300); Potassium 3.5 mEq/L (3.5-4.5); Sodium 142 mEq/L (136-145); Total Protein 6.2 g/dL (6.0-8.3); eGFR For African Americans > 60 (> 60); eGFR For Non-African Americans > 60 (> 60)
[2017-05-29] MEDS: Sucralfate 1 GM TABLET PO SCH ×2 (08:18→12:57)
--- NOTE | 2017-05-29 10:23 | Discharge Summary ---
Date of Encounter: 05/29/17 Time of Encounter: 10:19 - Discharge Diagnosis (1) MDD (major depressive disorder), recurrent episode, severe Priority: Primary Status: Acute Comments: Gypsy Mccallum is a 52-year-old female with past medical history depression, anxiety and polysubstance abuse who presented to [facility] on 05/27/2017 after being found unresponsive in parking lot. She was admitted for further workup and treatment. She was initially pink slipped and monitored with one-on-one sitter however she was evaluated by psychiatry who did not feel patient was a danger to self or others. Her home medication was restarted and mentation improved to baseline. She was discharged home in stable condition with outpatient psychiatric follow-up. 1. Major depressive disorder: per hx. On effexor at home but has not taken for the last 2-3 days. Evaluated by Psych who did not feel patient (at present) was a danger to self/others. Restart effexor XR 75 mg bid. Strongly encouraged patient to follow-up with Psychiatric team at [facility]. Continue home Effexor 2. Anxiety: per hx. Evaluated by Psych who recommended vistaril 25 mg prn bid anxiety. Cont at discharge. [place] reviewed 05/29/2017 and she does not have an active prescription for clonazepam. Given her history of drug abuse, home clonazepam stopped. Follow-up with outpatient psychiatry 3. Polysubstance abuse: known hx drug abuse. Was found down on day of admission. Head CT negative. UDS positive for cocaine, benzos, amphetamines and opiates. Mentation appropriate and back to baseline. Cessation strongly encouraged. 4. Hypoglycemia: blood glucose 39 on 05/28/17 morning labs. Patient reported not eating for 3 days prior to admission; blood sugar improved with IV dextrose. Now eating regular diet. Blood sugars stable, no further hypoglycemia. Resolved at discharge Qualifiers: Psychotic features: without psychotic features Qualified Code(s): F33.2 - Major depressive disorder, recurrent severe without psychotic features (2) Anxiety Priority: Primary Status: Chronic (3) Polysubstance abuse Priority: Primary Status: Acute (4) Hypoglycemia Priority: Primary Status: Acute - Discharge Medications Prescriptions: hydrOXYzine pamoate [HydrOXYzine Pamoate] 25 mg PO BID PRN #60 capsule PRN Reason: Anxiety Venlafaxine [Effexor] 75 mg PO BID #60 tablet Home Medications: Omeprazole [PriLOSEC] 20 mg PO DAILY 08/02/16 [History] Sucralfate [Carafate] 1 gm PO QID 08/02/16 [History] Albuterol Sulfate [Proair Hfa] 2 puff IH Q4H PRN 12/15/16 [History] Gabapentin [Neurontin] 800 mg PO TID 12/15/16 [History] Acetaminophen [Tylenol] 650 mg PO Q6HR PRN #14 tablet 12/21/16 [Rx] Furosemide [Lasix] 20 mg PO BID PRN 05/27/17 [History] Venlafaxine [Effexor] 75 mg PO BID #60 tablet 05/29/17 [Rx] hydrOXYzine pamoate [HydrOXYzine Pamoate] 25 mg PO BID PRN #60 capsule 05/29/17 [Rx] Allergies/Adverse Reactions: 3 Allergy/AdvReac Type Severity Reaction Status Date / Time ibuprofen Allergy Rash Verified 01/27/16 04:16 tramadol [From Ultram] Allergy Rash Verified 01/27/16 04:16 Date of admission: 05/28/17 11:48 Primary care physician: Kalin Copeland Discharging clinician: Tracie Starkey Anticipated date of discharge: 05/29/17 - Patient Status Disposition: Home, Self-Care Functional capacity at discharge: independent ambulation Overall status at discharge: patient is back to baseline - Discharge Instructions Follow Up With: Kalin Copeland, PAC [Primary Care Provider] - - Diet and Activity Activity: resume usual activities as tolerated Diet: advance to your usual diet Interval History: CN exam at bedside. Patient said she is tired and weak but overall feels much better. Says she would like to go home today. Spoke to patient at length regarding the importance of keeping follow-up appointment with outpatient psychiatry. Patient verbalizes understanding and agrees to follow-up. Also discussed importance of taking medication as prescribed and sustaining from use of recreational/illegal drugs. Patient verbalizes understanding, says she has a support system at home. Besides feeling weak and tired, she has no complaints. She specifically denies chest pain, no shortness of breath, no abdominal pain, no nausea vomiting or diarrhea. Hospital course: See assessment and plan for hospital course - Time Spent with Patient Total time spent providing and/or coordinating discharge services: Greater than 30 minutes (46 minutes spent on discharge) - Constitutional Vitals: Temp Pulse Resp BP Pulse Ox 98.5 F 78 14 97/62 97 05/28/17 16:23 05/28/17 16:23 05/28/17 16:23 05/28/17 16:23 05/28/17 16:23 General appearance: Present: disheveled, A&O X 3 - Head Head exam: Present: atraumatic, normocephalic - Eye Eye exam: Present: PERRL, conjuntiva pink, sclera anicteric Pupils: Present: PERRL - Neck Neck exam general surgery: Present: supple, trachea midline. Absent: lymphadenopathy - Respiratory Respiratory exam: Present: CTAB. Absent: accessory muscle use, rales, rhonchi, wheezes - Cardiovascular Cardiovascular exam: Present: RRR, +S1, +S2. Absent: diastolic murmur, gallop, rubs, systolic murmur - GI/Abdominal GI/Abdominal exam: Present: normal bowel sounds, soft, no peritoneal signs. Absent: distended, tenderness - Extremities Exam Extremities exam: Present: warm, radial pulses palpable and symmetrical. Absent : calf tenderness, cyanotic, pedal edema - Neurological Exam Neurological exam: Present: CN II-XII intact, oriented X3, no focal deficits. Absent: pronater drift, facial droop, speech deficit - Skin Skin exam: Present: dry, intact
== END 2017-05-29 13:55 | disposition home or self-care (01) | DRG 751 ==
LOC: EMEROO 19:45 → 3BNU 19:45
PROVIDERS: ADMIT Internal Medicine; ATTEND Registered Nurse

== ENCOUNTER 2017-07-18 19:28 | Inpatient (IN) ==
[2017-07-18] MEDS ORDERED: Lidocaine 1% 20 ML MDV ID ONE (19:55)
[2017-07-18] MEDS ORDERED: cephALEXin 250 MG CAPSULE PO ONE (19:55)
[2017-07-18] MEDS ORDERED: Sulfamethoxazole/Trimeth DS 1 EACH TABLET PO ONE (19:55)
[2017-07-18] MEDS ORDERED: *HR* LORazepam 1 MG TABLET PO ONE (19:55)
[2017-07-18] MEDS ORDERED: *HR* Morphine Immed Rel 30 MG TABLET PO ONE (19:56)
[2017-07-18] MEDS ORDERED: Vancomycin 1,000 MG in D5% in Water 250 ML IVPB ONE (20:48)
[2017-07-18] MEDS ORDERED: Nicotine 21 MG PATCH.TD24 TD ONE (21:01)
--- NOTE | 2017-07-18 21:02 | Emergency Department Note ---
Disposition Clinical Impression: Abscess of skin or subcutaneous tissue Qualifiers: Site of cutaneous abscess: extremity Site of cutaneous abscess of extremity: upper extremity Laterality: left Qualified Code(s): L02.414 - Cutaneous abscess of left upper limb Cellulitis Qualifiers: Site of cellulitis: extremity Site of cellulitis of extremity: upper extremity Laterality: left Qualified Code(s): L03.114 - Cellulitis of left upper limb Disposition: Still a Patient Skin/Abscess/FB HPI Chief complaint: ED Skin/Abscess/Foreign Body Stated complaint: "Cellulitis" L Arm Time Seen by Provider: 07/18/17 19:35 Source: patient Limitations: no limitations Home Medications Medication Instructions Recorded Confirmed Omeprazole [PriLOSEC] 20 mg PO DAILY 08/02/16 05/27/17 Sucralfate [Carafate] 1 gm PO QID 08/02/16 05/27/17 Albuterol Sulfate [Proair Hfa] 2 puff IH Q4H PRN 12/15/16 05/27/17 Gabapentin [Neurontin] 800 mg PO TID 12/15/16 05/27/17 Furosemide [Lasix] 20 mg PO BID PRN 05/27/17 05/27/17 Previous Rx's Medication Instructions Recorded Acetaminophen [Tylenol] 650 mg PO Q6HR PRN #14 tablet 12/21/16 Venlafaxine [Effexor] 75 mg PO BID #60 tablet 05/29/17 hydrOXYzine pamoate [HydrOXYzine 25 mg PO BID PRN #60 capsule 05/29/17 Pamoate] Allergies Allergy/AdvReac Type Severity Reaction Status Date / Time ibuprofen Allergy Rash Verified 01/27/16 04:16 tramadol [From Ultram] Allergy Rash Verified 01/27/16 04:16 Past Medical History - Past Medical History Medical history: Reports: GERD, hepatitis, hyperlipidemia, hypertension, other Surgical history: Reports: other Psychiatric history: Reports: anxiety, depression, previous psychiatric hospitalization 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 - Social History Smoking Status: Current every day smoker Smokeless Tobacco Status: No Alcohol use: Reports: none Drug use: Reports: none, cocaine, opiates, marijuana, methamphetamine, IV Drug Use, prescription drug abuse Physical Exam - General Limitations: no limitations General appearance: alert Course Vital Signs Temperature 97.8 F 07/18/17 19:29 Pulse Rate 91 07/18/17 19:29 Respiratory Rate 18 07/18/17 19:29 Blood Pressure 128/71 07/18/17 19:29 O2 Sat by Pulse Oximetry 97 07/18/17 19:29 Temperature 97.8 F 07/18/17 19:29 Pulse Rate 81 07/18/17 20:17 Respiratory Rate 16 07/18/17 20:17 Blood Pressure 130/76 07/18/17 20:17 O2 Sat by Pulse Oximetry 96 07/18/17 20:17 Oxygen Delivery Oxygen Delivery Room Air Procedures - Abscess I/D Consent obtained: verbal consent Site: upper extremity Side (if applicable): left Sedation/analgesia: other (ativan) Local Anesthetic: lidocaine 1%, with epi Amount of Anesthesia Used (mL): 10 Technique: incised with #11 blade Irrigation: Yes Packing used?: iodoform Skin/Abscess/Foreign Body - Lab Data Result diagrams: 07/18/17 20:55 07/18/17 20:55
[2017-07-18 21:03] LABS: Basophils # 0.1 K/mcL (0.0-0.2); Basophils % 0.8 %; Eosinophils # 0.3 K/mcL (0.0-0.6); Eosinophils % 2.9 %; Hematocrit 35.7 % (35.3-44.9); Hemoglobin 11.5 g/dL (11.5-15.4); Immature Granulocytes % 0.2 % (0-4); Immature Platelets 2.7 % (1.1-6.1); Lymphocytes # 3.8 K/mcL (0.6-4.6); Lymphocytes % 40.3 %; Mean Corpuscular HGB Conc 32.2 g/dL (31.6-35.5); Mean Corpuscular Hemoglobin 29.3 pg (28.0-33.3); Mean Corpuscular Volume 91.1 fL (83.0-100.0); Mean Platelet Volume 9.8 fL (9.4-12.4); Monocytes # 0.8 K/mcL (0.0-1.3); Monocytes % 7.9 %; Neutrophils # 4.5 K/mcL (1.6-8.9); Platelet Count 275 K/mcL (140-400); Red Blood Count 3.92 M/mcL (3.82-4.97); Red Cell Distribution Width 13.8 % (11.5-14.5); Segmented Neutrophils % 47.9 %
[2017-07-18] MEDS ORDERED: Piperacillin/Tazobactam 3.375 GM in D5% in Water (Mini-Bag+) 100 ML IVPB ONE (21:11)
[2017-07-18 21:17] LABS: Alanine Aminotransferase 18 Units/L (0-55); Albumin 3.2 g/dL (3.5-5.0); Albumin/Globulin Ratio 0.9 (1.1-2.2); Alkaline Phosphatase 117 Units/L (38-126); Aspartate Amino Transferase 17 Units/L (5-34); BUN/Creatinine Ratio 31 (6-26); Bilirubin,Total 0.2 mg/dL (0.2-1.2); Blood Urea Nitrogen 23 mg/dL (7-20); C-Reactive Protein 18 mg/L (Less than 5); Calcium 9.1 mg/dL (8.6-10.8); Carbon Dioxide 26 mEq/L (19-29); Chloride 106 mEq/L (98-109); Globulin 3.5 g/dL (2.4-3.5); Glucose 124 mg/dL (70-99); Osmolality,Calculated 293 (280-300); Potassium 4.2 mEq/L (3.5-4.5); Sodium 139 mEq/L (136-145); Total Protein 6.7 g/dL (6.0-8.3); eGFR For African Americans > 60 (> 60); eGFR For Non-African Americans > 60 (> 60)
[2017-07-18] MEDS ORDERED: Piperacillin/Tazobactam 3.375 GM in 0.9 % Sodium Chloride Mini Bag 100 ML IVPB ONE (23:00)
[2017-07-18] MEDS ORDERED: 0.9 % Sodium Chloride 1,000 ML IVC ONE (23:33)
[2017-07-18] MEDS ORDERED: Ondansetron 4 MG/2 ML VIAL IVP PRN (23:39)
[2017-07-18] MEDS ORDERED: Acetaminophen 325 MG TABLET PO PRN (23:39)
[2017-07-18] MEDS ORDERED: Naloxone 0.4 MG/ML INJ IVP PRN (23:39)
[2017-07-18] MEDS ORDERED: Vancomycin 750 MG in D5% in Water 250 ML IVPB SCH (23:45)
--- NOTE | 2017-07-18 23:46 | Internal Med History&Physical ---
Date of Encounter: 07/19/17 Time of Encounter: 22:30 Assessment and Plan (1) Abscess of skin or subcutaneous tissue Current visit: Yes Status: Acute Acute cellulitis of the left forearm that patient states she injected crystal meth into 5 days ago. Was seen previously here in November for similar sx in LUE. 4 cm abscess of the left forearm with surrounding cellulitis is present on examination. Hepatitis C history. Area was incised and drained and found to have gas within the wound and was packed. Patient received Keflex, Bactrim, vancomycin, and Zosyn in the ED. Will continue IVPB vancomycin with pharmacy dosing and Zosyn 3.375 gm every [address] hours for infection coverage. CT of the left forearm with contrast ordered stat to assess for presence of gas. Blood cultures 2 ordered. Wound culture ordered. Patient did not receive IV fluids in the ED and will be bolused 1L w/continuation of 0.9 NS at 125 mL per hour. Pt. is at high risk for further morbidity and sepsis based on current wound exam , hx, and risk factors. Inpatient. Qualifiers: Site of cutaneous abscess: extremity Site of cutaneous abscess of extremity : upper extremity Laterality: left Qualified Code(s): L02.414 - Cutaneous abscess of left upper limb (2) Altered mental status Current visit: Yes Status: Acute Acute and mild AMS most likely d/t recent drug use. Urine tox screen ordered stat. Falls/safety precautions. Pt. to be monitored closely. Will add Ativan PRN based on urine tox screen results if pt. is positive for polysubstances and shows signs of withdrawal. Qualifiers: Altered mental status type: disorientation Qualified Code(s): R41.0 - Disorientation, unspecified (3) Polysubstance abuse Current visit: Yes Status: Chronic Hx of chronic polysubstance abuse. Pt. states she only uses crystal meth and this was her first time injecting. Was seen previously for abscess of LUE in November 2016. SW consult ordered to assess for rehabilitation. Will avoid IV pain medications. (4) Hepatitis C Current visit: Yes Status: Chronic Hx of chronic hepatitis C. Hepatic panel and Hep C virus quant ordered in a.m. labs. Qualifiers: Viral hepatitis chronicity: chronic Hepatic coma status: without hepatic coma Qualified Code(s): B18.2 - Chronic viral hepatitis C (5) IVDU (intravenous drug user) Current visit: Yes Status: Chronic Hx of chronic IV drug abuse. Pt. reports she uses crystal meth and injects. Reports she injected into the abscess site 5 days ago using a friend's DM needle. Will avoid IV pain medications. PO only. Urine tox screen ordered stat d /t pts. current mildly altered mentation. Pt. to be monitored closely. (6) Tobacco abuse Current visit: Yes Status: Chronic Hx of chronic tobacco abuse. Pt. reports she currently smokes 1/2 PPD w/no intent to quit at this time d/t stress. 21 mg nicotine patch ordered. (7) GERD (gastroesophageal reflux disease) Current visit: Yes Status: Chronic Hx of chronic GERD. IVP Zofran Q6 PRN. Continue pts. PO Prilosec. Qualifiers: Esophagitis presence: esophagitis presence not specified Qualified Code(s) : K21.9 - Gastro-esophageal reflux disease without esophagitis (8) DVT prophylaxis Current visit: Yes Status: Acute Bilateral SCDs on LEs for DVT prophylaxis. Pharmacologic DVT prophylaxis contraindicated due to current bleeding from abscess incision site. Internal Medicine - H&P: HPI Chief complaint: Pain/swelling in left forearm Admitted From: Emergency Dept Plans for Post Hospital Care: Home History of present illness: Ms. Mccallum is a 52 year old female medical history of GERD, hepatitis C, HTN, and HLD the presents from the ED with pain and swelling in the left forearm for the past 5 days. Patient also reports fever and chills for the past 2 days. Patient states she used her friend's diabetic needle to inject crystal meth in her left forearm 5 days ago. She states the site began to become painful and red 4 days ago and has worsened over the past 4 days. She reports history of IV drug abuse previously. Denies any other drug use. Patient denies recent illness, nausea, vomiting, chest pain, shortness of breath, palpitations, changes in vision, unusual bleeding, headache, abdominal pain, diarrhea, constipation, dizziness, lightheadedness, pre-syncope, or syncope. Past Med Surg Social Fam HX - Past Medical History Source: patient, old records reviewed Medical history: GERD, hepatitis (C), hyperlipidemia, hypertension, other Psychiatric history: anxiety, depression, previous psychiatric hospitalization - Past Surgical History Surgical History: other - Social History Smoking Status: Current every day smoker Packs per day: 1/2 PPD Smokeless Tobacco Status: No Alcohol use: occasionally Drug use: cocaine, opiates, marijuana, methamphetamine, IV Drug Use, prescription drug abuse Current living situation: Home Activity Level: Independent ambulation Recent Out of Country Travel Within the Last 8 Weeks: No Exposure or Possible Exposure to Illness During Travel: No - Family History Father History Unknown: Yes Adopted: Yes Mother History Unknown: Yes Adopted: Yes Brother History Unknown: Yes Adopted: Yes Internal Medicine - H&P: Meds Omeprazole [PriLOSEC] 20 mg PO DAILY 08/02/16 [History] Sucralfate [Carafate] 1 gm PO QID 08/02/16 [History] Albuterol Sulfate [Proair Hfa] 2 puff IH Q4H PRN 12/15/16 [History] Gabapentin [Neurontin] 800 mg PO TID 12/15/16 [History] Acetaminophen [Tylenol] 650 mg PO Q6HR PRN #14 tablet 12/21/16 [Rx] Furosemide [Lasix] 20 mg PO BID PRN 05/27/17 [History] Venlafaxine [Effexor] 75 mg PO BID #60 tablet 05/29/17 [Rx] hydrOXYzine pamoate [HydrOXYzine Pamoate] 25 mg PO BID PRN #60 capsule 05/29/17 [Rx] 3 Allergy/AdvReac Type Severity Reaction Status Date / Time ibuprofen Allergy Rash Verified 01/27/16 04:16 tramadol [From Ultram] Allergy Rash Verified 01/27/16 04:16 All Systems PM: A 10-system review of systems was performed and is negative for pertinent findings except as documented above in the HPI. - Constitutional Constitutional: as per HPI, chills, fever(s) (Yesterday - reports fever >100F), no night sweats - EENT Eyes: no change in vision, no discharge, no pain, no photophobia Ears: no ear discharge, no ear pain, no tinnitus Nose, mouth and throat: no dysphagia, no nasal discharge, no neck pain, no sore throat - Breasts Breasts: as per HPI - Cardiovascular Cardiovascular ROS IM: no chest pain, no diaphoresis, no dyspnea, no lightheadedness, no palpitations, no syncope - Respiratory Respiratory: no cough, no dyspnea, no wheezing, no excessive phlegm production - Gastrointestinal Gastrointestinal: no abdominal pain, no diarrhea, no hematemesis, no hematochezia, no melena, no nausea, no vomiting - Genitourinary Genitourinary: no change in urinary stream, no dysuria, no flank pain, no hematuria Menstruation: as per HPI - Musculoskeletal Musculoskeletal ROS IM: no numbness, no tingling - Integumentary Integumentary IM: as per HPI, erythema (Left forearm), other (Edema and pain in left forearm d/t abscess) - Neurological Neurological ROS: no confusion, no convulsions, no focal weakness, no numbness, no tingling, no tremor(s) - Psychiatric Psychiatric: as per HPI, anxiety, depression, other (Previous psychiatric hospitalizations) - Endocrine Endocrine IM: as per HPI - Hematologic/Lymphatic Hematologic/Lymphatic: no easy bruising - Allergic/Immunologic Allergic/Immunologic: as per HPI - Constitutional Vitals: Temp Pulse Resp BP Pulse Ox 97.9 F 76 16 126/75 99 07/18/17 23:35 07/18/17 23:35 07/18/17 23:35 07/18/17 23:35 07/18/17 23:35 General appearance: Present: cooperative, A&O X 2, mild distress, answers questions appropriately - Head Head exam: Present: atraumatic, normocephalic - Eye Eye exam: Present: PERRL, conjuntiva pink, sclera anicteric Pupils: Present: PERRL - ENT ENT exam: Present: normal exam, normal external ear exam - Neck Neck exam general surgery: Present: normal inspection, supple, trachea midline. Absent: lymphadenopathy - Respiratory Respiratory exam: Present: CTAB. Absent: accessory muscle use, rales, rhonchi, wheezes - Cardiovascular Cardiovascular exam: Present: RRR, +S1, +S2. Absent: diastolic murmur, gallop, rubs, systolic murmur - GI/Abdominal GI/Abdominal exam: Present: normal bowel sounds, soft, no peritoneal signs. Absent: distended, tenderness - Rectal Rectal exam: Present: deferred - Additional comments: exam deferred. - Extremities Exam Extremities exam: Present: warm, radial pulses palpable and symmetrical. Absent : calf tenderness, cyanotic, pedal edema - Expanded Upper Extremities Exam Forearm wrist exam: Present: erythema (Left forearm), swelling (Left forearm), tenderness (Left forearm) - Back Exam Back exam: Present: normal inspection - Neurological Exam Neurological exam: Present: alert, altered (Mildly). Absent: pronater drift, facial droop, speech deficit - Psychiatric Psychiatric exam: Present: anxious - Skin Skin exam: Present: erythema (Left forearm w/incision to drain abscess.) Internal Med - H&P Results - Labs CBC & Chem 7: 07/18/17 20:55 07/18/17 20:55
[2017-07-19] MEDS ORDERED: Ipratropium/Albuterol Neb 3 ML IH PRN (00:13)
[2017-07-19 00:40] LABS: Amphetamine Screen,Urine Positive ng/mL (Cutoff=1000); Barbiturate Screen,Urine Negative ng/mL (Cutoff=200); Benzodiazepines Screen,Urine Negative ng/mL (Cutoff=200); Cannabinoid Screen,Urine Negative ng/mL (Cutoff = 50); Cocaine Screen,Urine Negative ng/mL (Cutoff= 300); Opiate Screen,Urine Negative ng/mL (Cutoff=300); Phencyclidine Screen,Urine Negative ng/mL (Cutoff=25)
[2017-07-19] MEDS: Piperacillin/Tazobactam 3.375 GM in 0.9 % Sodium Chloride Mini Bag 100 ML IVPB SCH ×3 (01:43→18:19)
[2017-07-19 04:49] LABS: Basophils # 0.1 K/mcL (0.0-0.2); Basophils % 0.8 %; Eosinophils # 0.2 K/mcL (0.0-0.6); Eosinophils % 3.1 %; Hematocrit 37.6 % (35.3-44.9); Hemoglobin 11.7 g/dL (11.5-15.4); Immature Granulocytes % 0.3 % (0-4); Lymphocytes % 38.1 %; Mean Corpuscular HGB Conc 31.1 g/dL (31.6-35.5); Mean Corpuscular Hemoglobin 28.6 pg (28.0-33.3); Mean Corpuscular Volume 91.9 fL (83.0-100.0); Mean Platelet Volume 10.5 fL (9.4-12.4); Monocytes # 0.6 K/mcL (0.0-1.3); Monocytes % 7.5 %; Neutrophils # 3.9 K/mcL (1.6-8.9); Platelet Count 250 K/mcL (140-400); Red Blood Count 4.09 M/mcL (3.82-4.97); Red Cell Distribution Width 13.7 % (11.5-14.5); Segmented Neutrophils % 50.2 %
[2017-07-19 05:05] LABS: Albumin/Globulin Ratio 0.9 (1.1-2.2); Bilirubin,Direct 0.2 mg/dL (0.0-0.5); Bilirubin,Indirect 0.3 mg/dL (0.0-1.2); Bilirubin,Total 0.5 mg/dL (0.2-1.2); Globulin 3.5 g/dL (2.4-3.5); Total Protein 6.5 g/dL (6.0-8.3)
[2017-07-19 05:06] LABS: Alanine Aminotransferase 16 Units/L (0-55); Albumin/Globulin Ratio 0.9 (1.1-2.2); Alkaline Phosphatase 105 Units/L (38-126); Aspartate Amino Transferase 19 Units/L (5-34); BUN/Creatinine Ratio 28 (6-26); Bilirubin,Total 0.5 mg/dL (0.2-1.2); Blood Urea Nitrogen 17 mg/dL (7-20); Calcium 8.6 mg/dL (8.6-10.8); Carbon Dioxide 28 mEq/L (19-29); Chloride 104 mEq/L (98-109); Chol/HDL Ratio 2.6 (0-4.9); Cholesterol 184 mg/dL (< 200); Globulin 3.5 g/dL (2.4-3.5); Glucose 84 mg/dL (70-99); HDL Cholesterol 70 mg/dL (40-59); LDL Cholesterol,Calculated 100 mg/dL (0-99); Magnesium 1.8 mg/dL (1.6-2.6); Osmolality,Calculated 289 (280-300); Potassium 3.9 mEq/L (3.5-4.5); Sodium 139 mEq/L (136-145); Total Protein 6.5 g/dL (6.0-8.3); Triglycerides 70 mg/dL (< 150); eGFR For African Americans > 60 (> 60); eGFR For Non-African Americans > 60 (> 60)
[2017-07-19 05:15] LABS: Hemoglobin A1C 5.2 %
[2017-07-19] MEDS: *HR* Morphine 2 MG/ML SYRINGE IVP PRN (05:42)
[2017-07-19] MEDS: 0.9 % Sodium Chloride 1,000 ML IVC SCH ×3 (05:43→13:49)
[2017-07-19] MEDS: *HR* HYDROcodone/Acet 5/325 mg TABLET PO PRN ×3 (09:10→23:00)
[2017-07-19] MEDS: Vancomycin 750 MG in D5% in Water 250 ML IVPB SCH (16:42)
[2017-07-19] MEDS ORDERED: clonazePAM 0.5 MG TABLET PO PRN (17:06)
[2017-07-19] MEDS: clonazePAM 0.5 MG TABLET PO PRN (18:21)
--- NOTE | 2017-07-19 19:03 | Internal Med Progress Note ---
Date of Encounter: 07/19/17 Time of Encounter: 11:00 - Assessment and plan (1) Cellulitis and abscess of hand Current Visit: No Status: Acute Assessment and plan: -Will continue IV antibiotics with vancomycin and Zosyn (2) Polysubstance dependence Current Visit: No Status: Acute Assessment and plan: -Be cautious with inpatient pain medications - Subjective Interval history: No acute events overnight - Constitutional Vitals: Temp Pulse Resp BP Pulse Ox 97.8 F 84 18 103/68 96 07/19/17 18:53 07/19/17 18:53 07/19/17 18:53 07/19/17 18:53 07/19/17 18:53 General appearance: Present: cooperative, A&O X 2, mild distress, answers questions appropriately - Respiratory Respiratory exam: Present: CTAB. Absent: accessory muscle use, rales, rhonchi, wheezes - Cardiovascular Cardiovascular exam: Present: RRR, +S1, +S2. Absent: diastolic murmur, gallop, rubs, systolic murmur Internal Medicine: Result - Labs CBC & Chem 7: 07/19/17 03:36 07/19/17 03:36 Labs: Short CBC 07/19/17 Range/Units 03:36 WBC 7.8 (4.3-11.1) K/mcL Hgb 11.7 (11.5-15.4) g/dL Hct 37.6 (35.3-44.9) % Plt Count 250 (140-400) K/mcL Neutrophils # 3.9 (1.6-8.9) K/mcL BMP 07/19/17 03:36 Sodium 139 Potassium 3.9 Chloride 104 Carbon Dioxide 28 BUN 17 Creatinine 0.61 Glucose 84 Calcium 8.6 Liver Function 07/19/17 07/19/17 Range/Units 03:36 03:36 Total Bilirubin 0.5 0.5 (0.2-1.2) mg/dL Direct Bilirubin 0.2 (0.0-0.5) mg/dL AST 19 18 (5-34) Units/L ALT 16 16 (0-55) Units/L Alkaline Phosphatase 105 106 (38-126) Units/L Albumin 3.0 L 3.0 L (3.5-5.0) g/dL Consult Discharge Plan - Plan Referrals: Kalin Copeland, PAC [Primary Care Provider] -
[2017-07-19] MEDS ORDERED: NON-FORMULARY MEDICATION 1 EACH EACH (Gabapentin [Neurontin] 600 MG) PO SCH (21:00)
[2017-07-19] MEDS ORDERED: Vancomycin 1,000 MG in D5% in Water 250 ML IVPB SCH (21:00)
[2017-07-19] MEDS: Gabapentin 400 MG CAPSULE PO SCH (22:33)
[2017-07-19] MEDS: Sucralfate 1 GM TABLET PO SCH (22:34)
[2017-07-20] MEDS: Piperacillin/Tazobactam 3.375 GM in 0.9 % Sodium Chloride Mini Bag 100 ML IVPB SCH ×3 (00:48→17:37)
[2017-07-20] MEDS: Nicotine 21 MG PATCH.TD24 TD SCH ×2 (00:48→09:21)
[2017-07-20 01:53] LABS: Acinetobacter baumannii by PCR Not Detected (Not Detect); Candida albicans by PCR Not Detected (Not Detect); Candida glabrata by PCR Not Detected (Not Detect); Candida krusei by PCR Not Detected (Not Detect); Candida parapsilosis by PCR Not Detected (Not Detect); Candida tropicalis by PCR Not Detected (Not Detect); Enterococcus by PCR Not Detected (Not Detect); Escherichia coli by PCR Not Detected (Not Detect); Klebsiella oxytoca by PCR Not Detected (Not Detect); Klebsiella pneumoniae by PCR Not Detected (Not Detect); Pseudomonas aeruginosa by PCR Not Detected (Not Detect); Serratia marcescens by PCR Not Detected (Not Detect); Staphylococcus aureus by PCR Not Detected (Not Detect); Streptococcus agalactiae(B)PCR Not Detected (Not Detect); Streptococcus by PCR ***DETECTED*** (Not Detect); Streptococcus pneumoniae PCR Not Detected (Not Detect); Streptococcus pyogenes (A) PCR Not Detected (Not Detect); blaKPC Carbapenem-Resist Gene Not Detected (Not Detect); mecA Methicillin-Resist Gene Not Detected (Not Detect); vanA/B Vancomycin-Resist Genes Not Detected (Not Detect)
[2017-07-20 06:29] LABS: Basophils # 0.1 K/mcL (0.0-0.2); Basophils % 0.9 %; Eosinophils # 0.2 K/mcL (0.0-0.6); Eosinophils % 4.5 %; Hemoglobin 10.5 g/dL (11.5-15.4); Immature Granulocytes % 0.2 % (0-4); Lymphocytes # 2.4 K/mcL (0.6-4.6); Lymphocytes % 45.2 %; Mean Corpuscular HGB Conc 30.9 g/dL (31.6-35.5); Mean Corpuscular Hemoglobin 28.4 pg (28.0-33.3); Mean Corpuscular Volume 91.9 fL (83.0-100.0); Mean Platelet Volume 10.4 fL (9.4-12.4); Monocytes # 0.5 K/mcL (0.0-1.3); Monocytes % 8.4 %; Neutrophils # 2.2 K/mcL (1.6-8.9); Platelet Count 220 K/mcL (140-400); Red Cell Distribution Width 13.8 % (11.5-14.5); Segmented Neutrophils % 40.8 %
[2017-07-20 06:39] LABS: Alanine Aminotransferase 16 Units/L (0-55); Albumin 2.5 g/dL (3.5-5.0); Albumin/Globulin Ratio 0.8 (1.1-2.2); Alkaline Phosphatase 108 Units/L (38-126); Aspartate Amino Transferase 20 Units/L (5-34); BUN/Creatinine Ratio 24 (6-26); Bilirubin,Total 0.3 mg/dL (0.2-1.2); Blood Urea Nitrogen 15 mg/dL (7-20); Calcium 8.3 mg/dL (8.6-10.8); Carbon Dioxide 27 mEq/L (19-29); Chloride 108 mEq/L (98-109); Globulin 3.2 g/dL (2.4-3.5); Glucose 101 mg/dL (70-99); Osmolality,Calculated 291 (280-300); Potassium 3.9 mEq/L (3.5-4.5); Sodium 140 mEq/L (136-145); Total Protein 5.7 g/dL (6.0-8.3); eGFR For African Americans > 60 (> 60); eGFR For Non-African Americans > 60 (> 60)
[2017-07-20] MEDS: Vancomycin 750 MG in D5% in Water 250 ML IVPB SCH ×3 (07:37→20:53)
[2017-07-20] MEDS: Gabapentin 400 MG CAPSULE PO SCH ×3 (09:21→20:29)
[2017-07-20] MEDS: Sucralfate 1 GM TABLET PO SCH ×4 (09:21→20:29)
[2017-07-20] MEDS: 0.9 % Sodium Chloride 1,000 ML IVC SCH ×3 (09:24→17:38)
[2017-07-20] MEDS: clonazePAM 0.5 MG TABLET PO PRN (09:33)
[2017-07-20] MEDS: *HR* HYDROcodone/Acet 5/325 mg TABLET PO PRN ×3 (09:38→22:09)
--- NOTE | 2017-07-20 14:49 | Internal Med Progress Note ---
Date of Encounter: 07/20/17 Time of Encounter: 11:00 - Assessment and plan (1) Cellulitis and abscess of hand Current Visit: No Status: Acute Assessment and plan: -Patient is afebrile and without leukocytosis -Will continue IV antibiotics with vancomycin and Zosyn (2) Polysubstance dependence Current Visit: No Status: Acute Assessment and plan: -Be cautious with inpatient pain medications - Subjective Interval history: No acute events overnight - Constitutional Vitals: Temp Pulse Resp BP Pulse Ox 98.0 F 76 18 114/76 96 07/20/17 11:51 07/20/17 11:51 07/20/17 11:51 07/20/17 11:51 07/20/17 11:51 General appearance: Present: cooperative, A&O X 2, mild distress, answers questions appropriately - Respiratory Respiratory exam: Present: CTAB. Absent: accessory muscle use, rales, rhonchi, wheezes - Cardiovascular Cardiovascular exam: Present: RRR, +S1, +S2. Absent: diastolic murmur, gallop, rubs, systolic murmur Internal Medicine: Result - Labs CBC & Chem 7: 07/20/17 05:40 07/20/17 05:40 Labs: Short CBC 07/20/17 Range/Units 05:40 WBC 5.3 (4.3-11.1) K/mcL Hgb 10.5 L (11.5-15.4) g/dL Hct 34.0 L (35.3-44.9) % Plt Count 220 (140-400) K/mcL Neutrophils # 2.2 (1.6-8.9) K/mcL BMP 07/20/17 05:40 Sodium 140 Potassium 3.9 Chloride 108 Carbon Dioxide 27 BUN 15 Creatinine 0.63 Glucose 101 H Calcium 8.3 L Liver Function 07/20/17 Range/Units 05:40 Total Bilirubin 0.3 (0.2-1.2) mg/dL AST 20 (5-34) Units/L ALT 16 (0-55) Units/L Alkaline Phosphatase 108 (38-126) Units/L Albumin 2.5 L (3.5-5.0) g/dL Consult Discharge Plan - Plan Referrals: Kalin Copeland, PAC [Primary Care Provider] -
[2017-07-20] MEDS ORDERED: Vancomycin 750 MG in D5% in Water 250 ML IVPB SCH (20:00)
[2017-07-20] MEDS: *HR* Morphine 2 MG/ML SYRINGE IVP PRN (20:29)
[2017-07-21] MEDS: clonazePAM 0.5 MG TABLET PO PRN (00:38)
[2017-07-21] MEDS: Piperacillin/Tazobactam 3.375 GM in 0.9 % Sodium Chloride Mini Bag 100 ML IVPB SCH ×3 (02:00→16:51)
[2017-07-21] MEDS: *HR* Morphine 2 MG/ML SYRINGE IVP PRN (02:01)
[2017-07-21 05:36] LABS: Basophils # 0.1 K/mcL (0.0-0.2); Basophils % 0.9 %; Eosinophils # 0.2 K/mcL (0.0-0.6); Eosinophils % 3.9 %; Hematocrit 34.2 % (35.3-44.9); Hemoglobin 10.6 g/dL (11.5-15.4); Immature Granulocytes % 0.4 % (0-4); Lymphocytes # 2.7 K/mcL (0.6-4.6); Lymphocytes % 49.9 %; Mean Corpuscular Hemoglobin 28.7 pg (28.0-33.3); Mean Corpuscular Volume 92.7 fL (83.0-100.0); Mean Platelet Volume 10.1 fL (9.4-12.4); Monocytes # 0.4 K/mcL (0.0-1.3); Nucleated Red Blood Cells 0.4 /100 WBC (0); Platelet Count 214 K/mcL (140-400); Red Blood Count 3.69 M/mcL (3.82-4.97); Red Cell Distribution Width 13.9 % (11.5-14.5); Segmented Neutrophils % 36.9 %
[2017-07-21 05:51] LABS: Alanine Aminotransferase 18 Units/L (0-55); Albumin 2.7 g/dL (3.5-5.0); Albumin/Globulin Ratio 0.9 (1.1-2.2); Alkaline Phosphatase 105 Units/L (38-126); Aspartate Amino Transferase 20 Units/L (5-34); BUN/Creatinine Ratio 33 (6-26); Bilirubin,Total 0.2 mg/dL (0.2-1.2); Blood Urea Nitrogen 21 mg/dL (7-20); Calcium 8.8 mg/dL (8.6-10.8); Carbon Dioxide 27 mEq/L (19-29); Chloride 108 mEq/L (98-109); Glucose 112 mg/dL (70-99); Osmolality,Calculated 294 (280-300); Sodium 140 mEq/L (136-145); Total Protein 5.7 g/dL (6.0-8.3); eGFR For African Americans > 60 (> 60); eGFR For Non-African Americans > 60 (> 60)
[2017-07-21] MEDS: 0.9 % Sodium Chloride 1,000 ML IVC SCH ×4 (06:21→23:22)
[2017-07-21] MEDS: Vancomycin 1,000 MG in D5% in Water 250 ML IVPB SCH ×2 (08:43→20:53)
[2017-07-21] MEDS: Nicotine 21 MG PATCH.TD24 TD SCH (08:44)
[2017-07-21] MEDS: Sucralfate 1 GM TABLET PO SCH ×4 (08:45→20:52)
[2017-07-21] MEDS: Gabapentin 400 MG CAPSULE PO SCH ×3 (08:45→20:52)
[2017-07-21 11:15] LABS: Adenovirus F 40/41 PCR Not detected (Not detect); Astrovirus PCR Not detected (Not detect); C.difficile Toxin A/B by PCR Not detected (Not detect); Campylobacter by PCR Not detected (Not detect); Cryptosporidium by PCR Not detected (Not detect); Cyclospora cayetanensis PCR Not detected (Not detect); E. coli O157 by PCR Not detected (Not detect); Entamoeba histolytica PCR Not detected (Not detect); Enteroaggregative E.coli(EAEC) Not detected (Not detect); Enteropathogenic E.coli(EPEC) ***DETECTED*** (Not detect); Enterotoxigenic E.coli (ETEC) Not detected (Not detect); Giardia lamblia PCR Not detected (Not detect); Norovirus GI/GII PCR Not detected (Not detect); Plesiomonas shigelloides PCR Not detected (Not detect); Rotavirus A PCR Not detected (Not detect); Salmonella PCR Not detected (Not detect); Sapovirus PCR Not detected (Not detect); Shig/EnteroinvasiveE coli EIEC Not detected (Not detect); Shigalike tox-prod E coli STEC Not detected (Not detect); Vibrio PCR Not detected (Not detect); Vibrio cholerae PCR Not detected (Not detect); Yersinia enterocolitica PCR Not detected (Not detect)
[2017-07-21] MEDS: *HR* HYDROcodone/Acet 5/325 mg TABLET PO PRN ×2 (13:44→20:52)
--- NOTE | 2017-07-21 15:49 | Internal Med Progress Note ---
Date of Encounter: 07/21/17 Time of Encounter: 12:00 - Assessment and plan (1) Cellulitis and abscess of hand Current Visit: No Status: Acute Assessment and plan: -Patient is afebrile and without leukocytosis -Will continue IV antibiotics with vancomycin and Zosyn (2) Cellulitis and abscess of upper arm and forearm Current Visit: Yes Status: Acute Assessment and plan: -Patient with left antecubital fossa abscess -Continue IV antibiotics as above and will consult general surgery for possible I&D. (3) Polysubstance dependence Current Visit: No Status: Acute Assessment and plan: -Be cautious with inpatient pain medications (4) Diarrhea Current Visit: Yes Status: Acute Assessment and plan: -Patient with new onset of multiple runny stools. -Stool cultures pending. Qualifiers: Diarrhea type: unspecified type Qualified Code(s): R19.7 - Diarrhea, unspecified - Subjective Interval history: No acute events overnight - Constitutional Vitals: Temp Pulse Resp BP Pulse Ox 98.1 F 83 16 111/70 96 07/21/17 15:21 07/21/17 15:21 07/21/17 15:21 07/21/17 15:21 07/21/17 15:21 General appearance: Present: cooperative, A&O X 2, mild distress, answers questions appropriately - Respiratory Respiratory exam: Present: CTAB. Absent: accessory muscle use, rales, rhonchi, wheezes - Cardiovascular Cardiovascular exam: Present: RRR, +S1, +S2. Absent: diastolic murmur, gallop, rubs, systolic murmur - Skin Additional comments: Left antecubital fossa abscess Internal Medicine: Result - Labs CBC & Chem 7: 07/21/17 05:27 07/21/17 05:27 Labs: Short CBC 07/21/17 Range/Units 05:27 WBC 5.4 (4.3-11.1) K/mcL Hgb 10.6 L (11.5-15.4) g/dL Hct 34.2 L (35.3-44.9) % Plt Count 214 (140-400) K/mcL Neutrophils # 2.0 (1.6-8.9) K/mcL BMP 07/21/17 05:27 Sodium 140 Potassium 4.0 Chloride 108 Carbon Dioxide 27 BUN 21 H Creatinine 0.64 Glucose 112 H Calcium 8.8 Liver Function 11/26/17 Range/Units 05:27 Total Bilirubin 0.2 (0.2-1.2) mg/dL AST 20 (5-34) Units/L ALT 18 (0-55) Units/L Alkaline Phosphatase 105 (38-126) Units/L Albumin 2.7 L (3.5-5.0) g/dL Consult Discharge Plan - Plan Referrals: Kalin Copeland, PAC [Primary Care Provider] -
[2017-07-21 17:26] LABS: HCV Quant Interpretation DETECTED (Not Detected)
[2017-07-22] MEDS: Piperacillin/Tazobactam 3.375 GM in 0.9 % Sodium Chloride Mini Bag 100 ML IVPB SCH ×4 (00:22→23:17)
[2017-07-22] MEDS: clonazePAM 0.5 MG TABLET PO PRN (00:22)
[2017-07-22] MEDS: Acetaminophen/Butalbital/CaffeineTABLET PO PRN ×2 (01:04→23:16)
[2017-07-22] MEDS: *HR* HYDROcodone/Acet 5/325 mg TABLET PO PRN ×3 (01:06→18:16)
[2017-07-22 05:03] LABS: Basophils # 0.1 K/mcL (0.0-0.2); Basophils % 0.8 %; Eosinophils # 0.2 K/mcL (0.0-0.6); Eosinophils % 3.4 %; Hematocrit 32.2 % (35.3-44.9); Immature Granulocytes % 0.5 % (0-4); Lymphocytes # 3.1 K/mcL (0.6-4.6); Lymphocytes % 50.2 %; Mean Corpuscular HGB Conc 31.1 g/dL (31.6-35.5); Mean Corpuscular Hemoglobin 28.7 pg (28.0-33.3); Mean Corpuscular Volume 92.5 fL (83.0-100.0); Mean Platelet Volume 10.4 fL (9.4-12.4); Monocytes # 0.7 K/mcL (0.0-1.3); Monocytes % 10.6 %; Neutrophils # 2.1 K/mcL (1.6-8.9); Platelet Count 231 K/mcL (140-400); Red Blood Count 3.48 M/mcL (3.82-4.97); Red Cell Distribution Width 13.9 % (11.5-14.5); Segmented Neutrophils % 34.5 %
[2017-07-22 05:20] LABS: Alanine Aminotransferase 19 Units/L (0-55); Albumin 2.5 g/dL (3.5-5.0); Albumin/Globulin Ratio 0.8 (1.1-2.2); Alkaline Phosphatase 110 Units/L (38-126); Aspartate Amino Transferase 22 Units/L (5-34); BUN/Creatinine Ratio 42 (6-26); Bilirubin,Total 0.2 mg/dL (0.2-1.2); Blood Urea Nitrogen 22 mg/dL (7-20); Calcium 8.7 mg/dL (8.6-10.8); Carbon Dioxide 27 mEq/L (19-29); Chloride 107 mEq/L (98-109); Glucose 60 mg/dL (70-99); Osmolality,Calculated 289 (280-300); Potassium 3.7 mEq/L (3.5-4.5); Sodium 139 mEq/L (136-145); Total Protein 5.5 g/dL (6.0-8.3); eGFR For African Americans > 60 (> 60); eGFR For Non-African Americans > 60 (> 60)
[2017-07-22] MEDS ORDERED: Aminoglycoside Consult 1 EACH MC ONE (09:52)
[2017-07-22] MEDS: Gabapentin 400 MG CAPSULE PO SCH ×3 (10:38→19:55)
[2017-07-22] MEDS: Sucralfate 1 GM TABLET PO SCH ×4 (10:38→19:55)
[2017-07-22] MEDS: Nicotine 21 MG PATCH.TD24 TD SCH (10:39)
[2017-07-22] MEDS: 0.9 % Sodium Chloride 1,000 ML IVC SCH ×2 (10:40→23:16)
[2017-07-22] MEDS: Vancomycin 1,000 MG in D5% in Water 250 ML IVPB SCH ×2 (10:41→19:54)
[2017-07-22] MEDS: *HR* Morphine 2 MG/ML SYRINGE IVP PRN ×2 (13:53→19:54)
--- NOTE | 2017-07-22 17:19 | Internal Med Progress Note ---
Date of Encounter: 07/22/17 Time of Encounter: 11:00 - Assessment and plan (1) Bacteremia due to Gram-positive bacteria Current Visit: Yes Status: Acute Assessment and plan: -Patient's blood cultures positive for strep; sensitivities known. -Continue vancomycin and Zosyn due to pending wounding cultures I&D (2) Cellulitis and abscess of hand Current Visit: No Status: Acute Assessment and plan: -Patient is afebrile and without leukocytosis -Will continue IV antibiotics with vancomycin and Zosyn (3) Cellulitis and abscess of upper arm and forearm Current Visit: Yes Status: Acute Assessment and plan: -Patient with left antecubital fossa abscess -Continue IV antibiotics as above and will consult general surgery for possible I&D. (4) Polysubstance dependence Current Visit: No Status: Acute Assessment and plan: -Be cautious with inpatient pain medications (5) Diarrhea Current Visit: Yes Status: Acute Assessment and plan: -Patient with new onset of multiple runny stools. -Patient with diarrhea and stool cultures positive for enteropathogenic E.coli. Qualifiers: Diarrhea type: unspecified type Qualified Code(s): R19.7 - Diarrhea, unspecified - Subjective Interval history: No acute events overnight Patient continues to complain of pain and requesting pain meds in addition to increased anxiety meds; proceed with caution due to patient's extensive history of IV drug abuse - Constitutional Vitals: Temp Pulse Resp BP Pulse Ox 97.8 F 83 17 120/79 96 07/22/17 15:46 07/22/17 15:46 07/22/17 15:46 07/22/17 15:46 07/22/17 15:46 General appearance: Present: cooperative, A&O X 2, mild distress, answers questions appropriately - Respiratory Respiratory exam: Present: CTAB. Absent: accessory muscle use, rales, rhonchi, wheezes - Cardiovascular Cardiovascular exam: Present: RRR, +S1, +S2. Absent: diastolic murmur, gallop, rubs, systolic murmur Internal Medicine: Result - Labs CBC & Chem 7: 07/22/17 04:11 07/22/17 04:11 Labs: Short CBC 07/22/17 Range/Units 04:11 WBC 6.2 (4.3-11.1) K/mcL Hgb 10.0 L (11.5-15.4) g/dL Hct 32.2 L (35.3-44.9) % Plt Count 231 (140-400) K/mcL Neutrophils # 2.1 (1.6-8.9) K/mcL BMP 07/22/17 04:11 Sodium 139 Potassium 3.7 Chloride 107 Carbon Dioxide 27 BUN 22 H Creatinine 0.53 L Glucose 60 L Calcium 8.7 Liver Function 07/22/17 Range/Units 04:11 Total Bilirubin 0.2 (0.2-1.2) mg/dL AST 22 (5-34) Units/L ALT 19 (0-55) Units/L Alkaline Phosphatase 110 (38-126) Units/L Albumin 2.5 L (3.5-5.0) g/dL Consult Discharge Plan - Plan Referrals: Kalin Copeland, PAC [Primary Care Provider] -
--- NOTE | 2017-07-22 19:10 | Electrocardiograph Report ---
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
--- NOTE | 2017-07-22 21:49 | Event Note ---
Date of Encounter: 07/22/17 Time of Encounter: 21:48 Vancomycin trough level was above the therapeutic range at 37. Kidney function is normal. I will stop vancomycin and check BUN and creatinine in the morning. Pharmacy to adjust dose of vancomycin once the level is within the therapeutic range.
[2017-07-23 06:00] LABS: Basophils # 0.1 K/mcL (0.0-0.2); Basophils % 1.2 %; Eosinophils # 0.2 K/mcL (0.0-0.6); Eosinophils % 3.8 %; Hematocrit 33.5 % (35.3-44.9); Hemoglobin 10.7 g/dL (11.5-15.4); Immature Granulocytes % 0.5 % (0-4); Immature Platelets 2.2 % (1.1-6.1); Lymphocytes # 2.9 K/mcL (0.6-4.6); Mean Corpuscular HGB Conc 31.9 g/dL (31.6-35.5); Mean Corpuscular Volume 90.8 fL (83.0-100.0); Mean Platelet Volume 10.2 fL (9.4-12.4); Monocytes # 0.6 K/mcL (0.0-1.3); Monocytes % 9.1 %; Neutrophils # 2.3 K/mcL (1.6-8.9); Platelet Count 234 K/mcL (140-400); Red Blood Count 3.69 M/mcL (3.82-4.97); Red Cell Distribution Width 13.9 % (11.5-14.5); Segmented Neutrophils % 37.4 %
[2017-07-23] MEDS: *HR* Morphine 2 MG/ML SYRINGE IVP PRN ×2 (06:21→23:13)
[2017-07-23 06:42] LABS: Alanine Aminotransferase 24 Units/L (0-55); Albumin 2.4 g/dL (3.5-5.0); Albumin/Globulin Ratio 0.8 (1.1-2.2); Alkaline Phosphatase 117 Units/L (38-126); Aspartate Amino Transferase 25 Units/L (5-34); BUN/Creatinine Ratio 28 (6-26); Bilirubin,Total < 0.2 mg/dL (0.2-1.2); Blood Urea Nitrogen 17 mg/dL (7-20); Calcium 8.4 mg/dL (8.6-10.8); Carbon Dioxide 27 mEq/L (19-29); Chloride 107 mEq/L (98-109); Globulin 3.1 g/dL (2.4-3.5); Glucose 122 mg/dL (70-99); Osmolality,Calculated 295 (280-300); Potassium 3.6 mEq/L (3.5-4.5); Sodium 141 mEq/L (136-145); Total Protein 5.5 g/dL (6.0-8.3); eGFR For African Americans > 60 (> 60); eGFR For Non-African Americans > 60 (> 60)
[2017-07-23] MEDS: Piperacillin/Tazobactam 3.375 GM in 0.9 % Sodium Chloride Mini Bag 100 ML IVPB SCH (10:05)
[2017-07-23] MEDS: Gabapentin 400 MG CAPSULE PO SCH ×3 (10:05→21:34)
[2017-07-23] MEDS: clonazePAM 0.5 MG TABLET PO PRN (10:05)
[2017-07-23] MEDS: Sucralfate 1 GM TABLET PO SCH ×4 (10:05→21:34)
[2017-07-23] MEDS: Nicotine 21 MG PATCH.TD24 TD SCH (10:06)
[2017-07-23] MEDS: 0.9 % Sodium Chloride 1,000 ML IVC SCH ×3 (10:06→21:33)
--- NOTE | 2017-07-23 13:58 | Internal Med Progress Note ---
Date of Encounter: 07/23/17 Time of Encounter: 13:55 - Assessment and plan (1) Bacteremia Current Visit: Yes Status: Acute Assessment and plan: growing strep patient on zosyn and vanco (2) Polysubstance dependence Current Visit: No Status: Acute Assessment and plan: very unlikely to quit (3) Hepatitis C Current Visit: Yes Status: Chronic Qualifiers: Viral hepatitis chronicity: chronic Hepatic coma status: without hepatic coma Qualified Code(s): B18.2 - Chronic viral hepatitis C (4) Cellulitis and abscess of hand Current Visit: No Status: Acute Assessment and plan: cellulitis/absess from injection site (5) Acute encephalopathy Current Visit: No Status: Acute Assessment and plan: resolving (6) GERD (gastroesophageal reflux disease) Current Visit: Yes Status: Chronic Assessment and plan: no acute issues Qualifiers: Esophagitis presence: esophagitis presence not specified Qualified Code(s) : K21.9 - Gastro-esophageal reflux disease without esophagitis - Subjective Interval history: Patient with history of hepatitis C, hypertension, high cholesterol, GERD patient was admitted with swelling of the left arm fever and chills for 4 days positive for cellulitis abscess blood cultures grown strep patient is on Vanco and Zosyn patient has a problem with polysubstance abuse admitted complaint today that she wants her Klonopin increased and requestin g some more narcotic which I will not give anymore narcotic. - Constitutional Vitals: Temp Pulse Resp BP Pulse Ox 98.9 F 81 16 136/89 96 07/23/17 11:10 07/23/17 11:10 07/23/17 11:10 07/23/17 11:10 07/23/17 11:10 General appearance: Present: cooperative, A&O X 2, mild distress, answers questions appropriately - Eye Eye exam: Present: PERRL, conjuntiva pink, sclera anicteric Pupils: Present: PERRL - Neck Neck exam general surgery: Present: supple, trachea midline. Absent: lymphadenopathy - Respiratory Respiratory exam: Present: CTAB. Absent: accessory muscle use, rales, rhonchi, wheezes - Cardiovascular Cardiovascular exam: Present: RRR, +S1, +S2. Absent: diastolic murmur, gallop, rubs, systolic murmur - GI/Abdominal GI/Abdominal exam: Present: normal bowel sounds, soft, no peritoneal signs. Absent: distended, tenderness - Extremities Exam Extremities exam: Present: tenderness, warm Internal Medicine: Result - Labs CBC & Chem 7: 07/23/17 05:16 07/23/17 05:16 Labs: Short CBC 07/23/17 Range/Units 05:16 WBC 6.0 (4.3-11.1) K/mcL Hgb 10.7 L (11.5-15.4) g/dL Hct 33.5 L (35.3-44.9) % Plt Count 234 (140-400) K/mcL Neutrophils # 2.3 (1.6-8.9) K/mcL BMP 07/23/17 05:16 Sodium 141 Potassium 3.6 Chloride 107 Carbon Dioxide 27 BUN 17 Creatinine 0.60 Glucose 122 H Calcium 8.4 L Liver Function 07/23/17 Range/Units 05:16 Total Bilirubin < 0.2 L (0.2-1.2) mg/dL AST 25 (5-34) Units/L ALT 24 (0-55) Units/L Alkaline Phosphatase 117 (38-126) Units/L Albumin 2.4 L (3.5-5.0) g/dL Consult Discharge Plan - Plan Referrals: Kalin Copeland, PAC [Primary Care Provider] -
[2017-07-23] MEDS: clonazePAM 1 MG TABLET PO PRN ×2 (15:28→21:47)
[2017-07-23] MEDS: *HR* HYDROcodone/Acet 5/325 mg TABLET PO PRN (15:33)
[2017-07-23] MEDS ORDERED: Piperacillin/Tazobactam 3.375 GM/200 ML BAG IVPB SCH (16:00)
[2017-07-23] MEDS: Vancomycin 1,000 MG in D5% in Water 250 ML IVPB SCH (18:11)
[2017-07-23] MEDS: Acetaminophen/Butalbital/CaffeineTABLET PO PRN (18:20)
[2017-07-23] MEDS: Piperacillin/Tazobactam 3.375 GM/200 ML BAG IVPB SCH (21:33)
[2017-07-24] MEDS: 0.9 % Sodium Chloride 1,000 ML IVC SCH ×2 (05:38→15:28)
[2017-07-24] MEDS: Piperacillin/Tazobactam 3.375 GM/200 ML BAG IVPB SCH ×2 (05:39→14:03)
[2017-07-24] MEDS: Vancomycin 1,000 MG in D5% in Water 250 ML IVPB SCH (05:40)
[2017-07-24] MEDS: Sucralfate 1 GM TABLET PO SCH ×4 (08:41→20:54)
[2017-07-24] MEDS: Gabapentin 400 MG CAPSULE PO SCH ×3 (08:41→20:54)
[2017-07-24] MEDS: Nicotine 21 MG PATCH.TD24 TD SCH (08:42)
[2017-07-24] MEDS: *HR* Morphine 2 MG/ML SYRINGE IVP PRN ×3 (08:43→20:54)
[2017-07-24] MEDS: clonazePAM 1 MG TABLET PO PRN ×2 (10:09→22:35)
--- NOTE | 2017-07-24 11:29 | Internal Med Progress Note ---
Date of Encounter: 07/24/17 Time of Encounter: 11:27 - Assessment and plan (1) Bacteremia Current Visit: Yes Status: Acute Assessment and plan: on antibiotics will consult ID (2) Polysubstance dependence Current Visit: No Status: Acute Assessment and plan: chronic and unlikely to quit (3) Hepatitis C Current Visit: Yes Status: Chronic Assessment and plan: chronic no new liver issues Qualifiers: Viral hepatitis chronicity: chronic Hepatic coma status: without hepatic coma Qualified Code(s): B18.2 - Chronic viral hepatitis C (4) Cellulitis and abscess of hand Current Visit: No Status: Acute Assessment and plan: on iv antibiotics (5) Acute encephalopathy Current Visit: No Status: Acute Assessment and plan: c linically much improved (6) GERD (gastroesophageal reflux disease) Current Visit: Yes Status: Chronic Assessment and plan: chronic Qualifiers: Esophagitis presence: esophagitis presence not specified Qualified Code(s) : K21.9 - Gastro-esophageal reflux disease without esophagitis - Subjective Interval history: Patient with history of hepatitis C, hypertension, high cholesterol, GERD patient was admitted with swelling of the left arm fever and chills for 4 days positive for cellulitis abscess blood cultures grown strep patient is on Vanco and Zosyn patient has a problem with polysubstance abuse admitted complaint today that she wants her Klonopin increased and requestin g some more narcotic which I will not give anymore narcotic. today patient says she feels better no new complains - Constitutional Vitals: Temp Pulse Resp BP Pulse Ox 98.5 F 86 18 146/85 97 07/24/17 07:54 07/24/17 07:54 07/24/17 07:54 07/24/17 07:54 07/24/17 07:54 General appearance: Present: cooperative, A&O X 2, mild distress, answers questions appropriately - Eye Eye exam: Present: PERRL, conjuntiva pink, sclera anicteric Pupils: Present: PERRL - Neck Neck exam general surgery: Present: supple, trachea midline. Absent: lymphadenopathy - Respiratory Respiratory exam: Present: CTAB. Absent: accessory muscle use, rales, rhonchi, wheezes - Cardiovascular Cardiovascular exam: Present: RRR, +S1, +S2. Absent: diastolic murmur, gallop, rubs, systolic murmur - GI/Abdominal GI/Abdominal exam: Present: normal bowel sounds, soft, no peritoneal signs. Absent: distended, tenderness - Extremities Exam Extremities exam: Present: tenderness, warm Internal Medicine: Result - Labs CBC & Chem 7: 07/23/17 05:16 07/23/17 05:16 Consult Discharge Plan - Plan Referrals: Kalin Copeland, PAC [Primary Care Provider] -
--- NOTE | 2017-07-24 16:09 | Infectious Disease Consult ---
Date of Encounter: 07/24/17 Time of Encounter: 16:09 Assessment and Plan (1) Bacteremia Status: Acute Assessment and plan: Causative organism: Strep anginosus. Source: Left forearm cellulitis and abscess. Uncomplicated. Blood cultures drawn 07/18/17 were positive 1/3 sets. No endocarditis on exam. The patient has two minor Modified Purcell's Criteria. Repeat blood cultures x 2 sets now. Get a TTE. If negative, the patient will need a KIARRA prior to discharge. Discontinue Vanc and Zosyn. Start Rocephin 2 grams IV daily. Duration of treatment depends on the clinical picture, but likely 2 weeks of IV antibiotics. Monitor labs closely. Avoid insertion of central venous access until repeat blood cultures are negative x 48 hours. payroll services analyst to assist with discharge planning. (2) Cellulitis and abscess of upper arm and forearm Status: Acute Assessment and plan: Location: Left forearm. Causative organism likely Strep anginosus given the blood culture results. Likely secondary to recent IVDU. CT of the LUE showed findings consistent with cellulitis and a possible small abscess. Status post bedside I & D in the ER. Procedure note reviewed. Purulence noted, but no culture was sent. Antibiotic recommendations as above. Wound care per the wound care team's recommendations. (3) Diarrhea Status: Acute Assessment and plan: Stool PCR positive for EPEC. No indication for additional antibiotics. Continue supportive care. Qualifiers: Diarrhea type: infectious Qualified Code(s): A09 - Infectious gastroenteritis and colitis, unspecified (4) IVDU (intravenous drug user) Status: Chronic Assessment and plan: Known history of Hep C. Check HIV. (5) GERD (gastroesophageal reflux disease) Status: Chronic Qualifiers: Esophagitis presence: esophagitis presence not specified Qualified Code(s) : K21.9 - Gastro-esophageal reflux disease without esophagitis (6) Hepatitis C Status: Chronic Assessment and plan: Treatment brayden. Refer to GI as an outpatient. Qualifiers: Viral hepatitis chronicity: chronic Hepatic coma status: without hepatic coma Qualified Code(s): B18.2 - Chronic viral hepatitis C Infectious Disease HPI - Data of Consult Patient: new to practice Consult date: 07/24/17 Requesting Physician: Td Medina Primary Care Provider: Kalin Copeland - Consult Narrative Reason for consult: Left arm abscess, bacteremia History of present illness: Ms. Mccallum is a 52 year old female the past medical history of GERd, Hep C, HLD, HTN, anxiety, depression. The patient was admitted to the hospital 07/18/17 for left forearm abscess and cellulitis. We are consulted 07/24/17 for antibiotic recommendations for left forearm abscess and bacteremia. Briefly, the patient is a 52 year old female with a past medical history as stated above. The patient presented to the ER with complaints of a four day history of left arm pain, redness, swelling, and drainage. Upon arrival to the ER, the patient was afebrile and hemodynamically stable with a normal white blood cell count. Left arm CT showed findings consistent with cellulitis and a small abscess. She had an I & D of the left forearm with a small amount of purulent drainage. Wound cultures were negative. Blood cultures were drawn x 2 sets and came back positive 1/3 sets for S. anginosus. She was started on IV Vanc and Zosyn and was admitted to the hospital for further evaluation. Since admission, the patient has remained afebrile and hemodynamically stable. Her WBC has remained normal. She started having some diarrhea and her stool came back positive for EPEC. Currently, the patient is on IV Vanc and Zosyn. We have been asked to evaluate and make further recommendations. During my exam today, the patient reports subjective fevers and chills. She reports chronic nasal congestion, denies sore throat or ear pain. She reports some intermittent chest pain and chronic cough and shortness of breath. She reports nausea and poor appetite with some intermittent generalized abdominal pain. She reports she started having loose stools after being admitted. She reports improved pain, redness, and swelling in the left forearm. She states she injected methamphetamine at the site of the abscess 2 days before her symptoms started. CC: Td Medina Past Med Surg Social Fam HX - Past Medical History Attestation: Yes The following information was validated with the patient. Source: patient, old records reviewed, nursing notes reviewed Medical history: GERD, hepatitis (Hep C), hypertension, other Psychiatric history: anxiety, bipolar, depression, previous psychiatric hospitalization - Past Surgical History Surgical History: other - Social History Smoking Status: Current every day smoker Packs per day: 1/2 PPD Smokeless Tobacco Status: No Alcohol use: none Drug use: cocaine, opiates, marijuana, methamphetamine, IV Drug Use, prescription drug abuse Occupational status: unemployed Current living situation: Home - Independent Activity Level: Independent ambulation Recent Out of Country Travel Within the Last 8 Weeks: No Exposure or Possible Exposure to Illness During Travel: No - Family History Father History Unknown: Yes Adopted: Yes Mother History Unknown: Yes Adopted: Yes Brother History Unknown: Yes Adopted: Yes Infectious Disease-CN:Meds Omeprazole [PriLOSEC] 20 mg PO DAILY 08/02/16 [History] Sucralfate [Carafate] 1 gm PO QID 08/02/16 [History] Gabapentin [Neurontin] 800 mg PO TID 12/15/16 [History] Acetaminophen/Butalbital/Caffe [Fioricet] 1 each PO DAILY PRN 07/19/17 [History] Gabapentin [Neurontin] 600 mg PO TID 07/19/17 [History] Venlafaxine [Effexor] 75 mg PO TID 07/19/17 [History] Zolpidem [Ambien] 5 mg PO HS 07/19/17 [History] clonazePAM [Klonopin] 0.5 mg PO DAILY PRN 07/19/17 [History] 3 Allergy/AdvReac Type Severity Reaction Status Date / Time ibuprofen AdvReac Hives Verified 07/19/17 09:45 tramadol [From Ultram] AdvReac Hives Verified 07/19/17 09:44 All systems: reviewed and no additional remarkable complaints except as stated Exam - Constitutional Vitals: Temp Pulse Resp BP Pulse Ox 98.3 F 68 17 122/79 98 07/24/17 15:59 07/24/17 15:59 07/24/17 15:59 07/24/17 15:59 07/24/17 15:59 General appearance: average body habitus, cooperative, no acute distress - Head Head exam: Present: atraumatic, normal inspection, normocephalic - Eye Eye exam: Present: EOMI, normal appearance Pupils: Present: normal accommodation, PERRL - ENT ENT exam: Present: mucous membranes moist - Neck Neck exam: Present: normal inspection - Respiratory Respiratory exam: Present: CTAB. Absent: rales, respiratory distress, rhonchi, wheezes - Cardiovascular Cardiovascular exam: Present: RRR, +S1, +S2 - GI/Abdominal GI/Abdominal exam: Present: normal bowel sounds, soft. Absent: distended, tenderness - Extremities Exam Additional comments: Left arm abscess without drainage, warmth, or erythema. - Neurological Exam Neurological exam: Present: alert, oriented X3, no focal deficits - Psychiatric Psychiatric exam: Present: normal affect, normal mood - Skin Skin exam: Present: dry, intact, normal color, warm Infectious Disease CN: Results - Labs CBC & Chem 7: 07/23/17 05:16 07/23/17 05:16 Cultures: Cultures 07/18/17 23:31 Blood Culture - Final Peripheral Venipuncture No growth. 07/18/17 23:31 Blood Culture - Final Peripheral Venipuncture No growth. 07/18/17 21:15 Blood Culture - Final Peripheral Venipuncture Streptococcus anginosus Serology: Serology 07/21/17 07/19/17 Range/Units 05:45 03:36 Stl C. cayetanensis PCR Not detected (Not detect) Stool Rotavirus A PCR Not detected (Not detect) Stl Adenov F 40/41 PCR Not detected (Not detect) Stool Astrovirus (PCR) Not detected (Not detect) Stool Campylobacter PCR Not detected (Not detect) Stl C. diff Tox A/B PCR Not detected (Not detect) Stool Cryptosporidium PCR Not detected (Not detect) Stl Sh Tox Pr E STEC PCR Not detected (Not detect) Stool E coli O157 PCR Not detected (Not detect) Stl Enterotoxigenic E PCR Not detected (Not detect) Stool EPEC (PCR) DETECTED A (Not detect) Stool EAEC (PCR) Not detected (Not detect) Stl E. histolytica PCR Not detected (Not detect) Stool Giardia Lamblia PCR Not detected (Not detect) Stool Salmonella PCR Not detected (Not detect) Stool Sapovirus (PCR) Not detected (Not detect) Stl P. shigelloides PCR Not detected (Not detect) Stl Shigella/EIEC PCR Not detected (Not detect) St Y.enterocolitica PCR Not detected (Not detect) Stool Vibrio (PCR) Not detected (Not detect) Stl Vibrio cholerae PCR Not detected (Not detect) Stl Norovirus GI/GII PCR Not detected (Not detect) Stl GI Panel (PCR) Com See below HCV RNA (PCR) IUs/ml 910,000 IU/mL HCV RNA PCR log IUs/ml 6.0 log IU HCV RNA (PCR) Interp DETECTED A (Not Detected) HCV RNA (PCR) EER SEE NOTE Consult Discharge Plan - Plan Referrals: Kalin Copeland, PAC [Primary Care Provider] -
[2017-07-24] MEDS: *HR* HYDROcodone/Acet 5/325 mg TABLET PO PRN ×2 (17:08→23:33)
[2017-07-25] MEDS: 0.9 % Sodium Chloride 1,000 ML IVC SCH ×2 (01:36→18:09)
[2017-07-25] MEDS ORDERED: cefTRIAXone 2,000 MG in Water for inj. (sterile) 20 ML IVP SCH (09:00)
[2017-07-25] MEDS ORDERED: Water for inj. (sterile) 10 ML IV ONE (09:16)
[2017-07-25] MEDS: Gabapentin 400 MG CAPSULE PO SCH ×2 (09:18→13:11)
[2017-07-25] MEDS: Nicotine 21 MG PATCH.TD24 TD SCH (09:18)
[2017-07-25] MEDS: Sucralfate 1 GM TABLET PO SCH ×3 (09:19→16:05)
[2017-07-25] MEDS: *HR* HYDROcodone/Acet 5/325 mg TABLET PO PRN ×2 (09:19→16:04)
[2017-07-25] MEDS: clonazePAM 1 MG TABLET PO PRN (09:19)
--- NOTE | 2017-07-25 12:59 | Internal Med Progress Note ---
Date of Encounter: 07/25/17 Time of Encounter: 12:57 - Assessment and plan (1) Bacteremia Current Visit: Yes Status: Acute Assessment and plan: appreciate ID evaluation will order echo if negative then KIARRA r/o vegetation (2) Polysubstance dependence Current Visit: No Status: Acute Assessment and plan: drug addicted and keep asking for more narcotics (3) Hepatitis C Current Visit: Yes Status: Chronic Assessment and plan: chronic no acute liver issues Qualifiers: Viral hepatitis chronicity: chronic Hepatic coma status: without hepatic coma Qualified Code(s): B18.2 - Chronic viral hepatitis C (4) Cellulitis and abscess of hand Current Visit: No Status: Acute Assessment and plan: resolving (5) Acute encephalopathy Current Visit: No Status: Acute Assessment and plan: resolved (6) GERD (gastroesophageal reflux disease) Current Visit: Yes Status: Chronic Assessment and plan: no new issues Qualifiers: Esophagitis presence: esophagitis presence not specified Qualified Code(s) : K21.9 - Gastro-esophageal reflux disease without esophagitis - Subjective Interval history: Patient with history of hepatitis C, hypertension, high cholesterol, GERD patient was admitted with swelling of the left arm fever and chills for 4 days positive for cellulitis abscess blood cultures grown strep patient is on Vanco and Zosyn patient has a problem with polysubstance abuse admitted complaint today that she wants her Klonopin increased and requestin g some more narcotic which I will not give anymore narcotic. today patient says she feels better no new complains complains of left arm pain asking for more narcotics - Constitutional Vitals: Temp Pulse Resp BP Pulse Ox 98.0 F 77 16 146/92 95 07/25/17 11:05 07/25/17 11:05 07/25/17 11:05 07/25/17 11:05 07/25/17 11:05 General appearance: Present: cooperative, A&O X 2, mild distress, answers questions appropriately - Head Head exam: Present: atraumatic, normocephalic - Neck Neck exam general surgery: Present: supple, trachea midline. Absent: lymphadenopathy - Respiratory Respiratory exam: Present: CTAB. Absent: accessory muscle use, rales, rhonchi, wheezes - Cardiovascular Cardiovascular exam: Present: RRR, +S1, +S2. Absent: diastolic murmur, gallop, rubs, systolic murmur - GI/Abdominal GI/Abdominal exam: Present: normal bowel sounds, soft, no peritoneal signs. Absent: distended, tenderness - Extremities Exam Extremities exam: Present: tenderness, warm Internal Medicine: Result - Labs CBC & Chem 7: 07/23/17 05:16 07/23/17 05:16 Consult Discharge Plan - Plan Referrals: Kalin Copeland, PAC [Primary Care Provider] -
[2017-07-25] MEDS: *HR* Morphine 2 MG/ML SYRINGE IVP PRN (13:11)
--- NOTE | 2017-07-25 15:15 | Infectious Disease Progress No ---
Date of Encounter: 07/25/17 Time of Encounter: 15:13 - Assessment and Plan (1) Bacteremia Current Visit: Yes Status: Acute Causative organism: Strep anginosus. Source: Left forearm cellulitis and abscess. Uncomplicated. Blood cultures drawn 07/18/17 were positive 1/3 sets. No endocarditis on exam. The patient has two minor Modified Purcell's Criteria. Repeat blood cultures x 2 sets drawn 07/23/17 are pending. Get a TTE. If negative, the patient will need a KIARRA prior to discharge. 10 no Rocephin 2 grams IV daily. Duration of treatment depends on the clinical picture, but likely 2 weeks of IV antibiotics. Monitor labs closely. Avoid insertion of central venous access until repeat blood cultures are negative x 48 hours. donor services coordinator to assist with discharge planning. (2) Cellulitis and abscess of upper arm and forearm Current Visit: Yes Status: Acute Location: Left forearm. Causative organism likely Strep anginosus given the blood culture results. Likely secondary to recent IVDU. CT of the LUE showed findings consistent with cellulitis and a possible small abscess. Status post bedside I & D in the ER. Procedure note reviewed. Purulence noted, but no culture was sent. Antibiotic recommendations as above. Wound care per the wound care team's recommendations. (3) Diarrhea Current Visit: Yes Status: Acute Stool PCR positive for EPEC. No indication for additional antibiotics. Continue supportive care. Qualifiers: Diarrhea type: infectious Qualified Code(s): A09 - Infectious gastroenteritis and colitis, unspecified (4) IVDU (intravenous drug user) Current Visit: Yes Status: Chronic Known history of Hep C. Check HIV. (5) GERD (gastroesophageal reflux disease) Current Visit: Yes Status: Chronic Qualifiers: Esophagitis presence: esophagitis presence not specified Qualified Code(s) : K21.9 - Gastro-esophageal reflux disease without esophagitis (6) Hepatitis C Current Visit: Yes Status: Chronic Treatment brayden. Refer to GI as an outpatient. Qualifiers: Viral hepatitis chronicity: chronic Hepatic coma status: without hepatic coma Qualified Code(s): B18.2 - Chronic viral hepatitis C - Subjective Interval history: He should seen exam. No acute events noted overnight. Patient states overall she feels weak today and she's matter her boyfriend. She denies any fevers or chills or rigors. She denies any chest pain, short suppressed, or cough. She denies any nausea, vomiting, diarrhea, constipation, but shows reports she's doesn't eat. She denies any abdominal pain or urinary complaints. She does complain of pain in the left forearm from mid forearm to her wrist. She reports some numbness in her fingers. She denies any oral thrush or any skin lesions. Infect Dis PN-Objective Data - Labs CBC & Chem 7: 07/23/17 05:16 07/23/17 05:16 Cultures: Serology 07/21/17 07/19/17 Range/Units 05:45 03:36 Stl C. cayetanensis PCR Not detected (Not detect) Stool Rotavirus A PCR Not detected (Not detect) Stl Adenov F 40/41 PCR Not detected (Not detect) Stool Astrovirus (PCR) Not detected (Not detect) Stool Campylobacter PCR Not detected (Not detect) Stl C. diff Tox A/B PCR Not detected (Not detect) Stool Cryptosporidium PCR Not detected (Not detect) Stl Sh Tox Pr E STEC PCR Not detected (Not detect) Stool E coli O157 PCR Not detected (Not detect) Stl Enterotoxigenic E PCR Not detected (Not detect) Stool EPEC (PCR) DETECTED A (Not detect) Stool EAEC (PCR) Not detected (Not detect) Stl E. histolytica PCR Not detected (Not detect) Stool Giardia Lamblia PCR Not detected (Not detect) Stool Salmonella PCR Not detected (Not detect) Stool Sapovirus (PCR) Not detected (Not detect) Stl P. shigelloides PCR Not detected (Not detect) Stl Shigella/EIEC PCR Not detected (Not detect) St Y.enterocolitica PCR Not detected (Not detect) Stool Vibrio (PCR) Not detected (Not detect) Stl Vibrio cholerae PCR Not detected (Not detect) Stl Norovirus GI/GII PCR Not detected (Not detect) Stl GI Panel (PCR) Com See below HCV RNA (PCR) IUs/ml 910,000 IU/mL HCV RNA PCR log IUs/ml 6.0 log IU HCV RNA (PCR) Interp DETECTED A (Not Detected) HCV RNA (PCR) EER SEE NOTE Exam - Constitutional Vitals: Temp Pulse Resp BP Pulse Ox 98.0 F 77 16 146/92 95 07/25/17 11:05 07/25/17 11:05 07/25/17 11:05 07/25/17 11:05 07/25/17 11:05 General appearance: average body habitus, cooperative, no acute distress - Head Head exam: Present: atraumatic, normal inspection, normocephalic - Eye Eye exam: Present: EOMI, normal appearance, PERRL Pupils: Present: normal accommodation Additional comments: No subconjunctival hemorrhage noted. - ENT ENT exam: Present: mucous membranes moist - Neck Neck exam: Present: normal inspection - Respiratory Respiratory exam: Present: CTAB. Absent: rales, respiratory distress, rhonchi, wheezes - Cardiovascular Cardiovascular exam: Present: RRR, +S1, +S2 - GI/Abdominal GI/Abdominal exam: Present: normal bowel sounds, soft. Absent: distended, tenderness - Extremities Exam Extremities exam: Present: tenderness (Left Forearm). Absent: joint swelling, pedal edema Additional comments: Left forearm dressing is clean, dry, and intact. - Neurological Exam Neurological exam: Present: alert, oriented X3, no focal deficits - Psychiatric Psychiatric exam: Present: normal affect, normal mood - Skin Skin exam: Present: dry, intact, normal color, warm Consult Discharge Plan - Plan Referrals: Kalin Copeland, PAC [Primary Care Provider] -
[2017-07-25] MEDS: Acetaminophen/Butalbital/CaffeineTABLET PO PRN (18:09)
[2017-07-25 18:34] VITALS: BP 126/71
--- NOTE | 2017-07-25 19:51 | Event Note ---
Date of Encounter: 07/25/17 Time of Encounter: 19:49 Called by RN stating patient wants to sign out AMA. When I arrived to the floor , patient was leaving the floor and refused to talk to me and/or nursing staff. Per RN, she signed AMA papers and left the premises.
== END 2017-07-25 19:45 | disposition left against medical advice (07) | DRG 383 ==
LOC: EMEROO 19:28 → 3ANU 19:28 → 3BNU 21:32
PROVIDERS: ADMIT Internal Medicine; ATTEND Hospitalist

== ENCOUNTER 2017-08-03 00:25 | Observation (INO) ==
[2017-08-03] MEDS ORDERED: 0.9 % Sodium Chloride 1,000 ML IVC ONE (00:28)
--- NOTE | 2017-08-03 00:47 | Emergency Department Note ---
Disposition Clinical Impression: Polysubstance abuse Altered mental status Qualifiers: Altered mental status type: unspecified Qualified Code(s): R41.82 - Altered mental status, unspecified Disposition: Admitted As Inpatient Condition: Fair Altered Mental Status HPI - General Chief Complaint: ED Altered Mental Status Stated Complaint: etoh Time Seen by Provider: 08/03/17 00:26 Source: patient, EMS Mode of arrival: EMS Limitations: no limitations Nursing Notes Reviewed: Yes Vital Signs Reviewed: Yes - History of Present Illness HPI Narrative: Patient is brought in by EMS as she had been going door to door knocking on doors and there is concern for intoxication with alcohol or other substance. Patient states she fell and had been asking for help. Patient complains of no specific pain at this time. Patient is appears clinically intoxicated she will undergo further evaluation for her altered mental status including a head CT to rule out intracranial cause. - Related Data Home Medications Medication Instructions Recorded Confirmed Omeprazole [PriLOSEC] 20 mg PO DAILY 08/02/16 07/19/17 Sucralfate [Carafate] 1 gm PO QID 08/02/16 07/19/17 Gabapentin [Neurontin] 800 mg PO TID 12/15/16 07/19/17 Acetaminophen/Butalbital/Caffe 1 each PO DAILY PRN 07/19/17 07/19/17 [Fioricet] Gabapentin [Neurontin] 600 mg PO TID 07/19/17 07/19/17 Venlafaxine [Effexor] 75 mg PO TID 07/19/17 07/19/17 Zolpidem [Ambien] 5 mg PO HS 07/19/17 07/19/17 clonazePAM [Klonopin] 0.5 mg PO DAILY PRN 07/19/17 07/19/17 Allergies Allergy/AdvReac Type Severity Reaction Status Date / Time ibuprofen AdvReac Hives Verified 07/19/17 09:45 tramadol [From Ultram] AdvReac Hives Verified 07/19/17 09:44 Limitations: ROS unobtainable due to patients medical condition Past Medical History - Past Medical History Medical history: Reports: GERD, hepatitis (Hep C), hypertension, other Surgical history: Reports: other Psychiatric history: Reports: anxiety, bipolar, depression, previous psychiatric hospitalization [employer] CON[employer]YOR history: Reports: no [employer] CON[employer]YOR history - Social History Smoking Status: Current every day smoker Smokeless Tobacco Status: No Alcohol use: Reports: none Drug use: Reports: cocaine, opiates, marijuana, methamphetamine, IV Drug Use, prescription drug abuse Physical Exam General: Pt slurring her words, normal vital signs, no acute distress Head: Normocephalic Atraumatic Eyes: PERRL, EOMI ENT: Airway patent, no stridor Neck: supple, no meningismus Chest: Lungs clear to auscultation bilateral Cardiac: Regular rate and rhythm, no murmurs, rubs or gallops Abdomen: soft, nontender, nondistended; no guarding, rebound, or tenderness to percussion Musculoskeletal: Calves symmetric, nontender, no palpable cord Skin: No rash, normal skin tone Neuro: Alert and Oriented to person, place, and time; No focal deficit Course - Reevaluation(s) Reevaluation #1: Patient remains arousable however she is wanting to rest in bed and is not wanting to answer further questions. Patient urine screen is positive for amphetamines but negative for other drugs. She does not admit to other substance abuse. Workup was otherwise negative. Head CT is negative. Alcohol is negative. Previous records reviewed and she does have a history of chronic hepatitis with recent culture positive bacteremia in which was likely from abscess and cellulitis which have been improving. Concern for benzo and opiate abuse. She previously signed herself out AMA. At this time she will need further observation and will be admitted to the hospital service. - Consultations Consultation #1: Dr. Dia accepts. The case was discussed. The patient's overall lack of change in the emergency department has prompted the request for observation. This time we do understand that concern for polysubstance abuse may allow for the patient to leave when her substances wear off. At this time is not completely clear due to amphetamines being the only positive drug test. We do have concern for benzos as her pupils are not pinpoint and her breathing is not shallow. Her alcohol level is negative. She has had benzo problems in the past. However reversal agent at this time is not recommended by us as she has a history of chronic benzos and we could possibly precipitate seizure. Patient will continue to undergo observation until her mental status improves or there is need for change in management. Vital Signs Temperature 98.4 F 08/03/17 00:25 Pulse Rate 69 08/03/17 00:25 Respiratory Rate 18 08/03/17 00:25 Blood Pressure 160/115 08/03/17 00:25 O2 Sat by Pulse Oximetry 99 08/03/17 00:25 Temperature 98.4 F 08/03/17 00:25 Pulse Rate 85 08/03/17 03:45 Respiratory Rate 18 08/03/17 03:45 Blood Pressure 108/72 08/03/17 03:45 O2 Sat by Pulse Oximetry 95 08/03/17 03:45 Oxygen Delivery Oxygen Delivery Room Air Altered Mental Status - Medical Records Medical records reviewed: Yes I reviewed the patient's medical records. - Lab Data Lab results reviewed: Yes I reviewed the patient's lab results. Result diagrams: 08/03/17 01:22 08/03/17 02:01 Lab Results 08/03/17 08/03/17 08/03/17 Range/Units 01:22 01:22 01:22 WBC 9.8 (4.3-11.1) K/mcL RBC 4.16 (3.82-4.97) M/mcL Hgb 12.4 (11.5-15.4) g/dL Hct 38.5 (35.3-44.9) % MCV 92.5 (83.0-100.0) fL MCH 29.8 (28.0-33.3) pg MCHC 32.2 (31.6-35.5) g/dL RDW 14.6 H (11.5-14.5) % Plt Count 407 H (140-400) K/mcL MPV 10.3 (9.4-12.4) fL Immature Gran % 0.2 (0-4) % Seg Neutrophils % 71.4 % Lymphocytes % 19.5 % Monocytes % 7.0 % Eosinophils % 0.8 % Basophils % 1.1 % Neutrophils # 7.0 (1.6-8.9) K/mcL Lymphocytes # 1.9 (0.6-4.6) K/mcL Monocytes # 0.7 (0.0-1.3) K/mcL Eosinophils # 0.1 (0.0-0.6) K/mcL Basophils # 0.1 (0.0-0.2) K/mcL Sodium (136-145) mEq/L Potassium (3.5-4.5) mEq/L Chloride (98-109) mEq/L Carbon Dioxide (19-29) mEq/L BUN (7-20) mg/dL Creatinine (0.57-1.11) mg/dL Est GFR ( Amer) (> 60) Est GFR (Non-Af Amer) (> 60) BUN/Creatinine Ratio (6-26) Glucose (70-99) mg/dL Calculated Osmolality (280-300) Calcium (8.6-10.8) mg/dL Total Bilirubin (0.2-1.2) mg/dL Direct Bilirubin (0.0-0.5) mg/dL Indirect Bilirubin (0.0-1.2) mg/dL AST (5-34) Units/L ALT (0-55) Units/L Alkaline Phosphatase (38-126) Units/L Ammonia (18-72) mcmol/L Troponin I 0.01 (0-0.03) ng/mL Serum Total Protein (6.0-8.3) g/dL Albumin (3.5-5.0) g/dL Globulin (2.4-3.5) g/dL Albumin/Globulin Ratio (1.1-2.2) Urine Color (Yellow) Urine Clarity (Clear) Urine pH (5.0-8.0) pH Units Ur Specific [place] (1.010-1.025) Urine Protein (Neg-Trace) mg/dL Urine Glucose (UA) (Normal) mg/dL Urine Ketones (Negative) mg/dL Urine Blood (Negative) Urine Nitrite (Negative) Urine Bilirubin (Negative) Urine Urobilinogen (Normal) mg/dL Ur Leukocyte Esterase (Negative) Urine Microscopic RBC (0-3) per hpf Urine Microscopic WBC (0-3) per hpf Ur Squamous Epith Cells (None-Few) per lpf Urine Bacteria (None-Few) per hpf Hyaline Casts (None-Few) per lpf Ur Culture Indicated? (NO) Urine Opiates Screen (Zpsprt=508) ng/mL Ur Barbiturates Screen (Jwzqqk=326) ng/mL Ur Phencyclidine Scrn (Cutoff=25) ng/mL Ur Amphetamines Screen (Ujudow=5988) ng/mL U Benzodiazepines Scrn (Qprknn=047) ng/mL Urine Cocaine Screen (Cutoff= 300) ng/mL U Marijuana (THC) Screen (Cutoff = 50) ng/mL Ethyl Alcohol (0-10) mg/dL Specimen Rejected Hemolyzed 08/03/17 08/03/17 08/03/17 Range/Units 01:35 01:35 02:01 WBC (4.3-11.1) K/mcL RBC (3.82-4.97) M/mcL Hgb (11.5-15.4) g/dL Hct (35.3-44.9) % MCV (83.0-100.0) fL MCH (28.0-33.3) pg MCHC (31.6-35.5) g/dL RDW (11.5-14.5) % Plt Count (140-400) K/mcL MPV (9.4-12.4) fL Immature Gran % (0-4) % Seg Neutrophils % % Lymphocytes % % Monocytes % % Eosinophils % % Basophils % % Neutrophils # (1.6-8.9) K/mcL Lymphocytes # (0.6-4.6) K/mcL Monocytes # (0.0-1.3) K/mcL Eosinophils # (0.0-0.6) K/mcL Basophils # (0.0-0.2) K/mcL Sodium 140 (136-145) mEq/L Potassium 3.5 (3.5-4.5) mEq/L Chloride 109 (98-109) mEq/L Carbon Dioxide 20 (19-29) mEq/L BUN 23 H (7-20) mg/dL Creatinine 0.61 (0.57-1.11) mg/dL Est GFR ( Amer) > 60 (> 60) Est GFR (Non-Af Amer) > 60 (> 60) BUN/Creatinine Ratio 38 H (6-26) Glucose 87 (70-99) mg/dL Calculated Osmolality 293 (280-300) Calcium 9.7 (8.6-10.8) mg/dL Total Bilirubin 0.8 (0.2-1.2) mg/dL Direct Bilirubin 0.4 (0.0-0.5) mg/dL Indirect Bilirubin 0.4 (0.0-1.2) mg/dL AST 25 (5-34) Units/L ALT 27 (0-55) Units/L Alkaline Phosphatase 110 (38-126) Units/L Ammonia (18-72) mcmol/L Troponin I (0-0.03) ng/mL Serum Total Protein 7.4 (6.0-8.3) g/dL Albumin 3.7 (3.5-5.0) g/dL Globulin 3.7 H (2.4-3.5) g/dL Albumin/Globulin Ratio 1.0 L (1.1-2.2) Urine Color Dark Yellow (Yellow) Urine Clarity Clear (Clear) Urine pH 6.0 (5.0-8.0) pH Units Ur Specific [place] 1.030 H (1.010-1.025) Urine Protein 30 H (Neg-Trace) mg/dL Urine Glucose (UA) Normal (Normal) mg/dL Urine Ketones Trace H (Negative) mg/dL Urine Blood Negative (Negative) Urine Nitrite Negative (Negative) Urine Bilirubin Small H (Negative) Urine Urobilinogen Normal (Normal) mg/dL Ur Leukocyte Esterase Small H (Negative) Urine Microscopic RBC 5-15 H (0-3) per hpf Urine Microscopic WBC 5-15 H (0-3) per hpf Ur Squamous Epith Cells Many H (None-Few) per lpf Urine Bacteria None Seen (None-Few) per hpf Hyaline Casts Moderate H (None-Few) per lpf Ur Culture Indicated? YES A (NO) Urine Opiates Screen Negative (Gxdnee=585) ng/mL Ur Barbiturates Screen Negative (Dpjpkq=448) ng/mL Ur Phencyclidine Scrn Negative (Cutoff=25) ng/mL Ur Amphetamines Screen Positive H (Rafbuf=6724) ng/mL U Benzodiazepines Scrn Negative (Qbbecs=354) ng/mL Urine Cocaine Screen Negative (Cutoff= 300) ng/mL U Marijuana (THC) Screen Negative (Cutoff = 50) ng/mL Ethyl Alcohol < 10 (0-10) mg/dL Specimen Rejected 08/03/17 Range/Units 03:16 WBC (4.3-11.1) K/mcL RBC (3.82-4.97) M/mcL Hgb (11.5-15.4) g/dL Hct (35.3-44.9) % MCV (83.0-100.0) fL MCH (28.0-33.3) pg MCHC (31.6-35.5) g/dL RDW (11.5-14.5) % Plt Count (140-400) K/mcL MPV (9.4-12.4) fL Immature Gran % (0-4) % Seg Neutrophils % % Lymphocytes % % Monocytes % % Eosinophils % % Basophils % % Neutrophils # (1.6-8.9) K/mcL Lymphocytes # (0.6-4.6) K/mcL Monocytes # (0.0-1.3) K/mcL Eosinophils # (0.0-0.6) K/mcL Basophils # (0.0-0.2) K/mcL Sodium (136-145) mEq/L Potassium (3.5-4.5) mEq/L Chloride (98-109) mEq/L Carbon Dioxide (19-29) mEq/L BUN (7-20) mg/dL Creatinine (0.57-1.11) mg/dL Est GFR ( Amer) (> 60) Est GFR (Non-Af Amer) (> 60) BUN/Creatinine Ratio (6-26) Glucose (70-99) mg/dL Calculated Osmolality (280-300) Calcium (8.6-10.8) mg/dL Total Bilirubin (0.2-1.2) mg/dL Direct Bilirubin (0.0-0.5) mg/dL Indirect Bilirubin (0.0-1.2) mg/dL AST (5-34) Units/L ALT (0-55) Units/L Alkaline Phosphatase (38-126) Units/L Ammonia 32 (18-72) mcmol/L Troponin I (0-0.03) ng/mL Serum Total Protein (6.0-8.3) g/dL Albumin (3.5-5.0) g/dL Globulin (2.4-3.5) g/dL Albumin/Globulin Ratio (1.1-2.2) Urine Color (Yellow) Urine Clarity (Clear) Urine pH (5.0-8.0) pH Units Ur Specific [place] (1.010-1.025) Urine Protein (Neg-Trace) mg/dL Urine Glucose (UA) (Normal) mg/dL Urine Ketones (Negative) mg/dL Urine Blood (Negative) Urine Nitrite (Negative) Urine Bilirubin (Negative) Urine Urobilinogen (Normal) mg/dL Ur Leukocyte Esterase (Negative) Urine Microscopic RBC (0-3) per hpf Urine Microscopic WBC (0-3) per hpf Ur Squamous Epith Cells (None-Few) per lpf Urine Bacteria (None-Few) per hpf Hyaline Casts (None-Few) per lpf Ur Culture Indicated? (NO) Urine Opiates Screen (Iagxbz=801) ng/mL Ur Barbiturates Screen (Rjuqgp=710) ng/mL Ur Phencyclidine Scrn (Cutoff=25) ng/mL Ur Amphetamines Screen (Jiwxss=7271) ng/mL U Benzodiazepines Scrn (Sxnhdv=845) ng/mL Urine Cocaine Screen (Cutoff= 300) ng/mL U Marijuana (THC) Screen (Cutoff = 50) ng/mL Ethyl Alcohol (0-10) mg/dL Specimen Rejected - Radiology Data Radiology results reviewed: Yes I reviewed the patient's radiology results. - EKG Data EKG attestation: Yes I reviewed and interpreted this EKG. EKG results narrative: EKG shows sinus rhythm with ventricular rate of 69. CO interval 125. QRS 90. QTC 411. Patient has no significant ST elevations or depressions. Previous EKG of 07/19/17 with no significant change. TPA Checklist - LKW: 3-4.5 hrs Add. Warnings/Precautions Patient/family understanding: The patient/family members have been counseled and understood the risk, benefit , and alternatives of treatment. Attestation Statement - Attestation Attestation: I, Tyler Tatum MD, personally evaluated this patient and discussed their management with the resident physician. I reviewed the resident's note and agree with the documented findings, medical decision making, and plan of care. 52-year-old female presents to the emergency department by ambulance for altered mental status. Patient was apparently found outdoors wandering from house to house and knocking on doors. Patient confused and disoriented and appears intoxicated. Patient responds to physical stimuli but is unable to answer questions or provide any history or review of systems. On examination patient is a well-developed well-nourished female in no acute distress. She is awake but somewhat drowsy. She responds to physical and verbal stimuli. There is no cyanosis or diaphoresis. She does have an abrasion to the nose and chin and lip where she apparently has fallen on her face. Neck is supple with no obvious tenderness and no palpable bony defect over the cervical spine. Chest is nontender to palpation. Breath sounds are clear and equal bilaterally. Heart regular rate and rhythm. Abdomen soft with normal bowel sounds. No tympany or distention. No obvious organomegaly or masses. No apparent tenderness to palpation. No peripheral edema. No gross focal neurological deficits. Labs reviewed. Tox screen positive for amphetamines. Chest x-ray negative. CT of the head and cervical spine negative. Is observed here in the emergency department for several hours and remains altered with no significant change in her mental status. The hospitalist, Dr. Johnson, was consulted and accepted admission of the patient to the hospital.
[2017-08-03 01:30] LABS: Basophils # 0.1 K/mcL (0.0-0.2); Basophils % 1.1 %; Eosinophils # 0.1 K/mcL (0.0-0.6); Eosinophils % 0.8 %; Hematocrit 38.5 % (35.3-44.9); Hemoglobin 12.4 g/dL (11.5-15.4); Immature Granulocytes % 0.2 % (0-4); Lymphocytes # 1.9 K/mcL (0.6-4.6); Lymphocytes % 19.5 %; Mean Corpuscular HGB Conc 32.2 g/dL (31.6-35.5); Mean Corpuscular Hemoglobin 29.8 pg (28.0-33.3); Mean Corpuscular Volume 92.5 fL (83.0-100.0); Mean Platelet Volume 10.3 fL (9.4-12.4); Monocytes # 0.7 K/mcL (0.0-1.3); Platelet Count 407 K/mcL (140-400); Red Blood Count 4.16 M/mcL (3.82-4.97); Red Cell Distribution Width 14.6 % (11.5-14.5); Segmented Neutrophils % 71.4 %
[2017-08-03 02:03] LABS: Bilirubin,Urine Small (Negative); Blood,Urine Negative (Negative); Clarity,Urine Clear (Clear); Color,Urine Dark Yellow (Yellow); Glucose,Urine (UA) Normal (Normal); Ketones,Urine Trace mg/dL (Negative); Leukocyte Esterase,Urine Small (Negative); Nitrite,Urine Negative (Negative); Protein,Urine 30 mg/dL (Neg-Trace); Urobilinogen,Urine Normal (Normal)
[2017-08-03 02:05] LABS: Bacteria,Urine None Seen per hpf (None-Few); Hyaline Casts,Urine Moderate per lpf (None-Few); Squamous Epithelial Cell,Urine Many per lpf (None-Few)
[2017-08-03 02:18] LABS: Ethanol < 10 mg/dL (0-10)
[2017-08-03 02:30] LABS: Amphetamine Screen,Urine Positive ng/mL (Cutoff=1000); Barbiturate Screen,Urine Negative ng/mL (Cutoff=200); Benzodiazepines Screen,Urine Negative ng/mL (Cutoff=200); Cannabinoid Screen,Urine Negative ng/mL (Cutoff = 50); Cocaine Screen,Urine Negative ng/mL (Cutoff= 300); Opiate Screen,Urine Negative ng/mL (Cutoff=300); Phencyclidine Screen,Urine Negative ng/mL (Cutoff=25)
[2017-08-03 02:32] LABS: Alanine Aminotransferase 27 Units/L (0-55); Albumin 3.7 g/dL (3.5-5.0); Alkaline Phosphatase 110 Units/L (38-126); Aspartate Amino Transferase 25 Units/L (5-34); BUN/Creatinine Ratio 38 (6-26); Bilirubin,Direct 0.4 mg/dL (0.0-0.5); Bilirubin,Indirect 0.4 mg/dL (0.0-1.2); Bilirubin,Total 0.8 mg/dL (0.2-1.2); Blood Urea Nitrogen 23 mg/dL (7-20); Calcium 9.7 mg/dL (8.6-10.8); Carbon Dioxide 20 mEq/L (19-29); Chloride 109 mEq/L (98-109); Globulin 3.7 g/dL (2.4-3.5); Glucose 87 mg/dL (70-99); Osmolality,Calculated 293 (280-300); Sodium 140 mEq/L (136-145); Total Protein 7.4 g/dL (6.0-8.3); eGFR For African Americans > 60 (> 60); eGFR For Non-African Americans > 60 (> 60)
[2017-08-03 02:36] LABS: Potassium 3.5 mEq/L (3.5-4.5)
[2017-08-03] MEDS ORDERED: Naloxone 0.4 MG/ML INJ IVP PRN (10:28)
--- NOTE | 2017-08-03 10:39 | Internal Med History&Physical ---
Date of Encounter: 08/03/17 Time of Encounter: 09:00 Assessment and Plan (1) Positive urine drug screen Current visit: No Status: Acute -Patient presented with intoxication secondary to methamphetamine abuse. -Monitor on telemetry and observe overnight. -Continue supportive care. (2) Polysubstance dependence Current visit: No Status: Acute -Discussed with patient about entering drug rehabilitation program; social work consulted. (3) MDD (major depressive disorder), recurrent episode, severe Current visit: No Status: Acute -Continue home medications Qualifiers: Psychotic features: without psychotic features Qualified Code(s): F33.2 - Major depressive disorder, recurrent severe without psychotic features Internal Medicine - H&P: HPI Chief complaint: Intoxication secondary to substance abuse Admitted From: Home Plans for Post Hospital Care: Home History of present illness: Patient is a 52-year-old female with past medical history significant for polysubstance abuse who presents to the ER on 08/03/17 due to intoxication from methamphetamine use. Patient admits to using methamphetamine approximately 3 times a week and was brought into the ER secondary to strange behavior per witnesses. In the ER, urine tox positive for amphetamines. Patient will be admitted to the medical surgical floor for monitoring and observation. Past Med Surg Social Fam HX - Past Medical History Medical history: GERD, hepatitis, hypertension, other Psychiatric history: anxiety, bipolar, depression, previous psychiatric hospitalization - Past Surgical History Surgical History: other - Social History Smoking Status: Current every day smoker Smokeless Tobacco Status: No Alcohol use: none Drug use: cocaine, opiates, marijuana, methamphetamine, IV Drug Use, prescription drug abuse - Family History Father Adopted: Yes Mother Adopted: Yes Brother Adopted: Yes Internal Medicine - H&P: Meds Omeprazole [PriLOSEC] 20 mg PO DAILY 08/02/16 [History] Sucralfate [Carafate] 1 gm PO QID 08/02/16 [History] Gabapentin [Neurontin] 800 mg PO TID 12/15/16 [History] Acetaminophen/Butalbital/Caffe [Fioricet] 1 each PO DAILY PRN 07/19/17 [History] Gabapentin [Neurontin] 600 mg PO TID 07/19/17 [History] Venlafaxine [Effexor] 75 mg PO TID 07/19/17 [History] Zolpidem [Ambien] 5 mg PO HS 07/19/17 [History] clonazePAM [Klonopin] 0.5 mg PO DAILY PRN 07/19/17 [History] 3 Allergy/AdvReac Type Severity Reaction Status Date / Time ibuprofen AdvReac Hives Verified 07/19/17 09:45 tramadol [From Ultram] AdvReac Hives Verified 07/19/17 09:44 All Systems PM: A 10-system review of systems was performed and is negative for pertinent findings except as documented above in the HPI. - Constitutional Vitals: Temp Pulse Resp BP Pulse Ox 98.1 F 78 17 131/69 96 08/03/17 05:02 08/03/17 06:38 08/03/17 06:38 08/03/17 06:38 08/03/17 06:38 General appearance: Present: A&O X 3, no acute distress - Head Head exam: Present: normocephalic - Eye Eye exam: Present: normal appearance - ENT ENT exam: Present: mucous membranes dry - Respiratory Respiratory exam: Present: CTAB. Absent: accessory muscle use, rales, rhonchi, wheezes - Cardiovascular Cardiovascular exam: Present: RRR, +S1, +S2. Absent: diastolic murmur, gallop, rubs, systolic murmur - GI/Abdominal GI/Abdominal exam: Present: normal bowel sounds, soft, no peritoneal signs. Absent: distended, tenderness - Extremities Exam Extremities exam: Absent: pedal edema - Neurological Exam Neurological exam: Present: oriented X3 - Psychiatric Psychiatric exam: Present: flat affect - Skin Skin exam: Present: normal color Internal Med - H&P Results - Labs CBC & Chem 7: 08/03/17 01:22 08/03/17 02:01 - VTE Reasons for not Prescribing Prophylaxis: Treatment not Indicated - Low risk for VTE
[2017-08-03] MEDS: clonazePAM 0.5 MG TABLET PO PRN (13:55)
[2017-08-03] MEDS: Gabapentin 400 MG CAPSULE PO SCH ×2 (13:55→21:13)
[2017-08-03] MEDS ORDERED: Gabapentin 300 MG CAPSULE PO SCH (15:00)
[2017-08-03] MEDS: Nicotine 21 MG PATCH.TD24 TD SCH (15:07)
[2017-08-03] MEDS ORDERED: *HR* LORazepam 1 MG TABLET PO ONE (16:54)
[2017-08-03] MEDS: Sucralfate 1 GM TABLET PO SCH ×2 (17:00→21:14)
[2017-08-03] MEDS: Acetaminophen 325 MG TABLET PO PRN (22:37)
[2017-08-04] MEDS ORDERED: Acetaminophen 325 MG TABLET PO SCH
[2017-08-04 07:01] LABS: BUN/Creatinine Ratio 36 (6-26); Blood Urea Nitrogen 20 mg/dL (7-20); Calcium 8.5 mg/dL (8.6-10.8); Carbon Dioxide 24 mEq/L (19-29); Chloride 108 mEq/L (98-109); Glucose 98 mg/dL (70-99); Osmolality,Calculated 293 (280-300); Potassium 3.5 mEq/L (3.5-4.5); Sodium 140 mEq/L (136-145); eGFR For African Americans > 60 (> 60); eGFR For Non-African Americans > 60 (> 60)
[2017-08-04 07:21] LABS: Basophils # 0.1 K/mcL (0.0-0.2); Eosinophils # 0.2 K/mcL (0.0-0.6); Eosinophils % 3.3 %; Hematocrit 34.9 % (35.3-44.9); Hemoglobin 11.3 g/dL (11.5-15.4); Immature Granulocytes % 0.2 % (0-4); Lymphocytes # 2.8 K/mcL (0.6-4.6); Lymphocytes % 47.5 %; Mean Corpuscular HGB Conc 32.4 g/dL (31.6-35.5); Mean Corpuscular Hemoglobin 28.8 pg (28.0-33.3); Mean Platelet Volume 9.9 fL (9.4-12.4); Monocytes # 0.6 K/mcL (0.0-1.3); Monocytes % 9.6 %; Neutrophils # 2.2 K/mcL (1.6-8.9); Platelet Count 288 K/mcL (140-400); Red Blood Count 3.92 M/mcL (3.82-4.97); Red Cell Distribution Width 14.4 % (11.5-14.5); Segmented Neutrophils % 38.4 %
[2017-08-04 07:35] VITALS: BP 115/73
[2017-08-04] MEDS: Sucralfate 1 GM TABLET PO SCH (07:53)
[2017-08-04] MEDS: Acetaminophen 325 MG TABLET PO PRN (07:53)
[2017-08-04] MEDS: Gabapentin 400 MG CAPSULE PO SCH (07:54)
[2017-08-04] MEDS: Nicotine 21 MG PATCH.TD24 TD SCH (07:54)
[2017-08-04] MEDS: clonazePAM 0.5 MG TABLET PO PRN (07:54)
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
--- NOTE | 2017-08-05 14:38 | Electrocardiograph Report ---
[place] [id number] Test Date: 2017-08-03 Pat Name: Gypsy Mccallum Department: 104 Room: 2A44 Gender: F Hand Etcher: LELE : 1965 Requested By: Jairon Nails Order Number: [id number] Reading MD: Osmar Shanks Measurements Intervals [place] Rate: 69 P: 80 AL: 125 QRS: 69 QRSD: 90 T: 48 QT: 393 QTc: 411 Interpretive Statements SINUS RHYTHM Electronically Signed On 08-05-2017 14:36:18 EST by Osmar Shanks
== END 2017-08-04 13:10 | disposition home or self-care (01) ==
LOC: 2ANU 00:25 → EMEROO 00:25 → SUATTDRO 04:22 → 2ANU 04:37
PROVIDERS: ADMIT Hospitalist; ATTEND Internal Medicine

== ENCOUNTER 2018-03-26 11:28 | Inpatient (IN) ==
[~2018-03-26 11:28] MED LIST: *HR* Etomidate 20 MG/10 ML AMPUL IVP ONE; *HR* Rocuronium Bromide 100 MG/10 ML VIAL IVC ONE
--- NOTE | 2018-03-26 11:52 | Emergency Department Note ---
Disposition Clinical Impression: Altered mental status Qualifiers: Altered mental status type: stupor Qualified Code(s): R40.1 - Stupor Drug overdose Qualifiers: Encounter type: initial encounter Injury intent: undetermined intent Qualified Code(s): T50.904A - Poisoning by unspecified drugs, medicaments and biological substances, undetermined, initial encounter Disposition: Admitted As Inpatient Condition: Undetermined Time of Disposition: 15:58 General Adult HPI - General Stated complaint: Altered Mental Status Time Seen by Provider: 03/26/18 11:36 Nursing Notes Reviewed: Yes Vital Signs Reviewed: Yes - History of Present Illness HPI Narrative: 53-year-old female presents emergency department via EMS after concern for altered mental status. There is concern that patient may have taken too many of her venlafaxine, omeprazole, Carafate, lisinopril. Patient states that she only took one more pill than she was supposed to take. Patient denying any fever, cough, sputum production, urinary frequency, dysuria, hematuria. Denies any nausea or vomiting, back pain. - Related Data Home Medications Medication Instructions Recorded Confirmed Sucralfate [Carafate] 1 gm PO QID 08/02/16 03/26/18 Venlafaxine [Effexor] 75 mg PO TID 07/19/17 03/26/18 Furosemide [Lasix] 40 mg PO DAILY 03/26/18 03/26/18 Gabapentin [Neurontin] 800 mg PO TID 03/26/18 03/26/18 Lisinopril [Zestril] 10 mg PO DAILY 03/26/18 03/26/18 Previous Rx's Medication Instructions Recorded Omeprazole [PriLOSEC] 20 mg PO DAILY #14 capsule. 08/04/17 Allergies Allergy/AdvReac Type Severity Reaction Status Date / Time ibuprofen AdvReac Hives Verified 07/19/17 09:45 tramadol [From Ultram] AdvReac Hives Verified 07/19/17 09:44 All systems ED: reviewed and negative except as stated. Review of Systems: As Per HPI Constitutional: Denies: fever Cardiovascular: Denies: chest pain Respiratory: Denies: cough, dyspnea Gastrointestinal: Denies: abdominal pain, nausea, vomiting Genitourinary: Denies: urgency, dysuria, frequency, hematuria Musculoskeletal: Denies: back pain Integumentary: Denies: rash Neurological: Denies: headache, weakness, numbness, paresthesias Psychiatric: Denies: suicidal thoughts, homicidal thoughts Past Medical History - Past Medical History Medical history: Reports: GERD, hepatitis, hypertension, other Surgical history: Reports: other Psychiatric history: Reports: anxiety, bipolar, depression, previous psychiatric hospitalization SPA CONSULTANT history: Reports: no SPA CONSULTANT history - Social History Smoking Status: Current every day smoker Smokeless Tobacco Status: No Alcohol use: Reports: none Drug use: Reports: cocaine, opiates, marijuana, methamphetamine, IV Drug Use, prescription drug abuse Physical Exam - General General appearance: alert, other (Patient appears mildly confused.) - Head Head exam: normocephalic - Eye Eye exam: Present: EOMI. Absent: scleral icterus - ENT ENT exam: mucous membranes dry - Neck Neck exam: Present: trachea midline - Chest Chest inspection: Present: symmetric chest wall rise - Respiratory Respiratory exam: Present: normal lung sounds bilaterally. Absent: respiratory distress - Cardiovascular Cardiovascular exam: Present: regular rate, normal rhythm, normal heart sounds - Abdominal Exam Abdominal exam: Present: soft, Non-Tender. Absent: distention, guarding, rebound, rigidity - Extremities Exam Extremities exam: Present: normal capillary refill - Back Exam Back exam: Present: full ROM - Neurological Exam Neurological exam: Present: alert, oriented X3, other (patient is sluggish in response) - Psychiatric Psychiatric exam: Present: normal affect, normal mood - Skin Skin exam: Present: warm, dry, intact, normal color Course Vital Signs Temperature 98.1 F 03/26/18 11:38 Pulse Rate 73 03/26/18 11:38 Respiratory Rate 10 03/26/18 11:38 Blood Pressure 144/86 03/26/18 11:38 O2 Sat by Pulse Oximetry 91 03/26/18 11:38 Temperature 98.1 F 03/26/18 11:38 Pulse Rate 108 03/26/18 15:51 Respiratory Rate 11 03/26/18 15:51 Blood Pressure 191/143 03/26/18 15:51 O2 Sat by Pulse Oximetry 92 03/26/18 15:51 Oxygen Delivery Oxygen Delivery Ventilator Procedures - EJ/Peripheral Line Arm L Skin Cleansed in Sterile Fashion: Yes Size: 20 IV Secured and Dressing Applied: Yes Patient Tolerated Procedure: well, no complications Additional Comments: US was used - Intubation Time out performed: Yes sedative: Etomidate Mg Given: 20 paralytic: Rocuronium Mg Given: 70 Laryngoscope: other (glideoscope) ET Tube Size: 8 ET Tube Uncuffed: No Tube Secured Depth (cm): 20 Tube Secured Location: teeth Tube Placement Confirmation: visualized tube passing through cords, equal breath sounds bilaterally, no breath sounds over epigastrium, confirmation by capnometry Patient Tolerated Procedure: well, no complications Intubation Complications: none Medical Decision Making - MDM Narrative Medical decision making narrative: 53-year-old female presents emergency department with concern for possible altered mental status. Patient has reported taking a few of her medications on accident, however denies suicidal or homicidal ideations at this time. She is alert and oriented, just appears a little sluggish. Tried intranasal Narcan. Obtain EKG this is not reveal any ischemic ST changes or any concern for widening of the QT interval.. CT of head was obtained. Obtained ethanol, Tylenol, salicylates, CMP, CBC, urinalysis, urine drug screen. Patient was given Narcan as her pupils were very constricted and not reactive to light. A total of 8 mg has been administered Pupils responded, but patient did not become more alert. Through her stay, patient became more altered, was only responding to painful stimuli. At that point, it was decided to intubate the patient. 20 mg of etomidate and 70 mg of rocuronium were used. Patient was found to have 2 bags of drug paraphernalia in her vagina. One back at approximately 30 pills of unknown white tablets. Police confiscated them and stated that they were most likely gabapentin and oxycodone. The second bag contained what appeared to be tobacco. Unknown whether the back of tobacco was laced with any other drug paraphernalia. I spoken to poison control regarding the case. They stated to administer 50 g of charcoal. OG tube was placed. 50 g of charcoal administered. Chest x-ray that was obtained not reveal any acute abnormality. Repeat chest x- ray after intubation revealed appropriate position of endotracheal tube. We also obtain a head CT and this revealed no intracranial abnormality. Initial blood gas that was obtained from venous blood did not reveal any evidence of acidosis. EKG thousand 10 did not reveal any evidence of QT prolongation, et al. R-wave in aVR, new right axis deviation, QRS widening, or any ischemic ST changes. Urine drug screen revealed evidence of amphetamines. Tylenol level was negative , ethanol level was negative, salicylate level was negative as well. Patient hepatic transaminases were normal. Ammonia was also within normal limits. I spoke to Dr. Patel, who was taking call for the ICU who agreed to accept the patient for admission. Patient currently hemodynamically stable on the ventilator. Prior to ICU admission, patient started to become slightly more arousable. Oxygen saturation began to drop. Administered Propofol for Vital Signs Temperature 98.1 F 03/26/18 11:38 Pulse Rate 73 03/26/18 11:38 Respiratory Rate 10 03/26/18 11:38 Blood Pressure 144/86 03/26/18 11:38 O2 Sat by Pulse Oximetry 91 03/26/18 11:38 Temperature 98.1 F 03/26/18 11:38 Pulse Rate 108 03/26/18 15:51 Respiratory Rate 11 03/26/18 15:51 Blood Pressure 191/143 03/26/18 15:51 O2 Sat by Pulse Oximetry 92 03/26/18 15:51 Oxygen Delivery Oxygen Delivery Ventilator further sedation. Head CT 03/26/18 11:50 IMPRESSION: 1. No acute intracranial abnormality. D/ / 03/26/2018 13:26:44 Matthias Marroquin MD / denae Interpreting Provider: Matthias Marroquin MD Chest X-Ray 03/26/18 14:39 IMPRESSION: Appropriate positioning of endotracheal tube. No other significant findings in the chest. D/ / Beck Keith MD / Beck Keith MD Interpreting Provider: Beck Keith MD - Lab Data Result diagrams: 03/26/18 12:16 03/26/18 12:16 Lab Results 03/26/18 03/26/18 03/26/18 Range/Units 12:16 12:16 12:32 WBC 6.9 (4.3-11.1) K/mcL RBC 4.24 (3.82-4.97) M/mcL Hgb 12.3 (11.5-15.4) g/dL Hct 39.4 (35.3-44.9) % MCV 92.9 (83.0-100.0) fL MCH 29.0 (28.0-33.3) pg MCHC 31.2 L (31.6-35.5) g/dL RDW 13.9 (11.5-14.5) % Plt Count 237 (140-400) K/mcL MPV 11.2 (9.4-12.4) fL Immature Gran % 0.1 (0-4) % Seg Neutrophils % 55.9 % Lymphocytes % 33.9 % Monocytes % 7.1 % Eosinophils % 2.6 % Basophils % 0.4 % Neutrophils # 3.9 (1.6-8.9) K/mcL Lymphocytes # 2.3 (0.6-4.6) K/mcL Monocytes # 0.5 (0.0-1.3) K/mcL Eosinophils # 0.2 (0.0-0.6) K/mcL Basophils # 0.0 (0.0-0.2) K/mcL Sample Site ABG pH (7.32-7.45) pH Units ABG pCO2 (35-45) mmHg ABG pO2 (85-104) mmHg ABG HCO3 (21-27) mEq/L ABG Total CO2 (20-26) mEq/L ABG O2 Saturation (95-98) % ABG Base Excess (-2 to 3) mEq/L Kailash Test VBG pH 7.33 (7.32-7.42) pH Units VBG pCO2 62 H (41-51) mmHg VBG pO2 45 (25-50) mmHg VBG HCO3 33 H (21-27) mEq/L O2 Delivery Device Sodium 140 (136-145) mEq/L Potassium 4.7 (3.5-5.1) mEq/L Chloride 102 (98-107) mEq/L Carbon Dioxide 28 (23-29) mEq/L BUN 20 (6-20) mg/dL Creatinine 0.64 (0.60-1.20) mg/dL Est GFR ( Amer) > 60 (> 60) Est GFR (Non-Af Amer) > 60 (> 60) BUN/Creatinine Ratio 31 H (6-26) Glucose 74 (70-105) mg/dL Calculated Osmolality 291 (280-300) Calcium 9.7 (8.6-10.3) mg/dL Total Bilirubin 0.4 (0.3-1.0) mg/dL Direct Bilirubin 0.0 (0.0-0.2) mg/dL Indirect Bilirubin 0.4 (0.0-1.2) mg/dL AST 41 H (13-39) Units/L ALT 22 (7-52) Units/L Alkaline Phosphatase 99 (34-104) Units/L Ammonia (16-53) mcmol/L Serum Total Protein 7.0 (6.4-8.9) g/dL Albumin 4.2 (3.5-5.7) g/dL Globulin 2.8 (2.4-3.5) g/dL Albumin/Globulin Ratio 1.5 (1.1-2.2) TSH 0.997 (0.340-5.600) mcIU/mL Urine Color (Yellow) Urine Clarity (Clear) Urine pH (5.0-8.0) pH Units Ur Specific Malin (1.010-1.025) Urine Protein (Neg-Trace) mg/dL Urine Glucose (UA) (Normal) mg/dL Urine Ketones (Negative) mg/dL Urine Blood (Negative) Urine Nitrite (Negative) Urine Bilirubin (Negative) Urine Urobilinogen (Normal) mg/dL Ur Leukocyte Esterase (Negative) Urine Microscopic RBC (0-3) per hpf Urine Microscopic WBC (0-3) per hpf Ur Squamous Epith Cells (None-Few) per lpf Urine Bacteria (None-Few) per hpf Hyaline Casts (None-Few) per lpf Salicylates < 2.5 L (15.0-30.0) mg/dL Urine Opiates Screen (Ugaejw=073) ng/mL Acetaminophen < 10 L (10-20) mcg/mL Ur Barbiturates Screen (Ztgvqq=454) ng/mL Ur Phencyclidine Scrn (Cutoff=25) ng/mL Ur Amphetamines Screen (Lkpbsi=0219) ng/mL U Benzodiazepines Scrn (Twmrkp=837) ng/mL Urine Cocaine Screen (Cutoff= 300) ng/mL U Marijuana (THC) Screen (Cutoff = 50) ng/mL Ur Drug Screen Interp Ethyl Alcohol < 10 (Less than 10) mg/dL 03/26/18 03/26/18 03/26/18 Range/Units 13:06 14:44 14:44 WBC (4.3-11.1) K/mcL RBC (3.82-4.97) M/mcL Hgb (11.5-15.4) g/dL Hct (35.3-44.9) % MCV (83.0-100.0) fL MCH (28.0-33.3) pg MCHC (31.6-35.5) g/dL RDW (11.5-14.5) % Plt Count (140-400) K/mcL MPV (9.4-12.4) fL Immature Gran % (0-4) % Seg Neutrophils % % Lymphocytes % % Monocytes % % Eosinophils % % Basophils % % Neutrophils # (1.6-8.9) K/mcL Lymphocytes # (0.6-4.6) K/mcL Monocytes # (0.0-1.3) K/mcL Eosinophils # (0.0-0.6) K/mcL Basophils # (0.0-0.2) K/mcL Sample Site ABG pH (7.32-7.45) pH Units ABG pCO2 (35-45) mmHg ABG pO2 (85-104) mmHg ABG HCO3 (21-27) mEq/L ABG Total CO2 (20-26) mEq/L ABG O2 Saturation (95-98) % ABG Base Excess (-2 to 3) mEq/L Kaialsh Test VBG pH (7.32-7.42) pH Units VBG pCO2 (41-51) mmHg VBG pO2 (25-50) mmHg VBG HCO3 (21-27) mEq/L O2 Delivery Device Sodium (136-145) mEq/L Potassium (3.5-5.1) mEq/L Chloride (98-107) mEq/L Carbon Dioxide (23-29) mEq/L BUN (6-20) mg/dL Creatinine (0.60-1.20) mg/dL Est GFR ( Amer) (> 60) Est GFR (Non-Af Amer) (> 60) BUN/Creatinine Ratio (6-26) Glucose (70-105) mg/dL Calculated Osmolality (280-300) Calcium (8.6-10.3) mg/dL Total Bilirubin (0.3-1.0) mg/dL Direct Bilirubin (0.0-0.2) mg/dL Indirect Bilirubin (0.0-1.2) mg/dL AST (13-39) Units/L ALT (7-52) Units/L Alkaline Phosphatase (34-104) Units/L Ammonia 42 (16-53) mcmol/L Serum Total Protein (6.4-8.9) g/dL Albumin (3.5-5.7) g/dL Globulin (2.4-3.5) g/dL Albumin/Globulin Ratio (1.1-2.2) TSH (0.340-5.600) mcIU/mL Urine Color Yellow (Yellow) Urine Clarity Cloudy A (Clear) Urine pH 6.0 (5.0-8.0) pH Units Ur Specific Malin 1.019 (1.010-1.025) Urine Protein Negative (Neg-Trace) mg/dL Urine Glucose (UA) Normal (Normal) mg/dL Urine Ketones Trace H (Negative) mg/dL Urine Blood Negative (Negative) Urine Nitrite Negative (Negative) Urine Bilirubin Negative (Negative) Urine Urobilinogen 2.0 H (Normal) mg/dL Ur Leukocyte Esterase Negative (Negative) Urine Microscopic RBC 0-3 (0-3) per hpf Urine Microscopic WBC 0-3 (0-3) per hpf Ur Squamous Epith Cells Moderate H (None-Few) per lpf Urine Bacteria Many H (None-Few) per hpf Hyaline Casts None Seen (None-Few) per lpf Salicylates (15.0-30.0) mg/dL Urine Opiates Screen Negative (Rrvblw=833) ng/mL Acetaminophen (10-20) mcg/mL Ur Barbiturates Screen Negative (Vxjctj=018) ng/mL Ur Phencyclidine Scrn Negative (Cutoff=25) ng/mL Ur Amphetamines Screen Positive H (Atncfv=7191) ng/mL U Benzodiazepines Scrn Negative (Blvtul=310) ng/mL Urine Cocaine Screen Negative (Cutoff= 300) ng/mL U Marijuana (THC) Screen Negative (Cutoff = 50) ng/mL Ur Drug Screen Interp See Below Ethyl Alcohol (Less than 10) mg/dL 03/26/18 Range/Units 15:22 WBC (4.3-11.1) K/mcL RBC (3.82-4.97) M/mcL Hgb (11.5-15.4) g/dL Hct (35.3-44.9) % MCV (83.0-100.0) fL MCH (28.0-33.3) pg MCHC (31.6-35.5) g/dL RDW (11.5-14.5) % Plt Count (140-400) K/mcL MPV (9.4-12.4) fL Immature Gran % (0-4) % Seg Neutrophils % % Lymphocytes % % Monocytes % % Eosinophils % % Basophils % % Neutrophils # (1.6-8.9) K/mcL Lymphocytes # (0.6-4.6) K/mcL Monocytes # (0.0-1.3) K/mcL Eosinophils # (0.0-0.6) K/mcL Basophils # (0.0-0.2) K/mcL Sample Site R Radial ABG pH 7.42 (7.32-7.45) pH Units ABG pCO2 48 H (35-45) mmHg ABG pO2 92 (85-104) mmHg ABG HCO3 31 H (21-27) mEq/L ABG Total CO2 32 H (20-26) mEq/L ABG O2 Saturation 97 (95-98) % ABG Base Excess 5 H (-2 to 3) mEq/L Kailash Test N/A VBG pH (7.32-7.42) pH Units VBG pCO2 (41-51) mmHg VBG pO2 (25-50) mmHg VBG HCO3 (21-27) mEq/L O2 Delivery Device Adult Vent Sodium (136-145) mEq/L Potassium (3.5-5.1) mEq/L Chloride (98-107) mEq/L Carbon Dioxide (23-29) mEq/L BUN (6-20) mg/dL Creatinine (0.60-1.20) mg/dL Est GFR ( Amer) (> 60) Est GFR (Non-Af Amer) (> 60) BUN/Creatinine Ratio (6-26) Glucose (70-105) mg/dL Calculated Osmolality (280-300) Calcium (8.6-10.3) mg/dL Total Bilirubin (0.3-1.0) mg/dL Direct Bilirubin (0.0-0.2) mg/dL Indirect Bilirubin (0.0-1.2) mg/dL AST (13-39) Units/L ALT (7-52) Units/L Alkaline Phosphatase (34-104) Units/L Ammonia (16-53) mcmol/L Serum Total Protein (6.4-8.9) g/dL Albumin (3.5-5.7) g/dL Globulin (2.4-3.5) g/dL Albumin/Globulin Ratio (1.1-2.2) TSH (0.340-5.600) mcIU/mL Urine Color (Yellow) Urine Clarity (Clear) Urine pH (5.0-8.0) pH Units Ur Specific Malin (1.010-1.025) Urine Protein (Neg-Trace) mg/dL Urine Glucose (UA) (Normal) mg/dL Urine Ketones (Negative) mg/dL Urine Blood (Negative) Urine Nitrite (Negative) Urine Bilirubin (Negative) Urine Urobilinogen (Normal) mg/dL Ur Leukocyte Esterase (Negative) Urine Microscopic RBC (0-3) per hpf Urine Microscopic WBC (0-3) per hpf Ur Squamous Epith Cells (None-Few) per lpf Urine Bacteria (None-Few) per hpf Hyaline Casts (None-Few) per lpf Salicylates (15.0-30.0) mg/dL Urine Opiates Screen (Ydvaxy=172) ng/mL Acetaminophen (10-20) mcg/mL Ur Barbiturates Screen (Tzduzw=409) ng/mL Ur Phencyclidine Scrn (Cutoff=25) ng/mL Ur Amphetamines Screen (Rsgyyr=4534) ng/mL U Benzodiazepines Scrn (Manmum=811) ng/mL Urine Cocaine Screen (Cutoff= 300) ng/mL U Marijuana (THC) Screen (Cutoff = 50) ng/mL Ur Drug Screen Interp Ethyl Alcohol (Less than 10) mg/dL - EKG Data EKG #1 EKG attestation: Yes I reviewed and interpreted this EKG. EKG results narrative: 11:40 Ventricular rate 76 bpm, RI interval 150 ms, QRS duration 92 ms, QT 362 ms, QTC 393 ms, normal axis. Sinus rhythm with a ventricular rate of 76 bpm. RI interval is mildly shortened. No ischemic ST changes on this EKG. EKG #2 15:05 Gen. rate 79 bpm, RI interval 123 ms, QRS duration 90 ms, QT 382 ms, QTC 460 ms , normal axis. Sinus rhythm with a ventricular rate of 79 beats for minute. No ischemic ST changes on this EKG. No evidence of QT prolongation, tall R-wave in aVR, or new right axis deviation. Critical Care Time Critical Care Time: Yes Total Critical Care Time: 60 Attestation: Critical care time 60 minutes managing patient's altered mental status. Attestation Statement - Attestation Attestation: Patient was seen with resident physician. I reviewed the history, physical, assessment and plan, and agree with the findings. I also personally evaluated this patient and had [id number] time with this patient. 53-year-old female presents emergency Department with chief complaint of altered mental status. Patient was sent by the alf because she was more somnolent than she usually is. There is no known history of ingestion or recent drug use. Patient herself is easily arousable but falls back to sleep just as easily. She answers questions when asked and she is alert and oriented once she is awake. Review of systems as above remainder negative. Physical exam vital signs were stable. ENT shows no signs of trauma neck and back are nontender. Heart regular rhythm and rate. Lungs clear. Abdomen soft nontender. Extremities unremarkable. Neurologically arousable moves all extremities no focal deficits. Skin no rashes. Psych somnolent. ED course we will do mental status change workup. Patient was given a total of 8 mg of Narcan in attempts to correct her continuously worsening mental status. After she been here for a little while her responsiveness continued to decrease. Denies head CT scan was negative labs did not show obvious cause tox screen was pending at the time of this dictation. Because the patient was declining we opted to intubate protect patient's airway. This was a fortuitous decision as at the time of intubation the patient already had some swelling around the vocal cords is unclear what the etiology of this is. Also before the intubation resident physician did a body cavity search 2 bags of drug paraphernalia from the patient's vagina. The rectal exam was clear. We did discuss poison control as the police felt it may have been gabapentin and another drug. They recommended administering charcoal which we did via an OG tube that was placed after intubation. We did discuss the case with the welding systems and equipment repairer service agreed to accept the patient. Patient will be admitted to the intensive care unit for additional evaluation and treatment. Critical care time on this patient exclusive of other procedures was 60 minutes.
[2018-03-26] MEDS ORDERED: Naloxone 0.4 MG/ML INJ IVP ONE (11:57)
[2018-03-26] MEDS ORDERED: 0.9 % Sodium Chloride 1,000 ML IVC ONE ×2 (11:57→14:51)
[2018-03-26 12:37] LABS: VBG HCO3 33 mEq/L (21-27); VBG PCO2 62 mmHg (41-51); VBG PH 7.33 pH Units (7.32-7.42); VBG PO2 45 mmHg (25-50)
[2018-03-26 13:07] LABS: Acetaminophen < 10 mcg/mL (10-20); BUN/Creatinine Ratio 31 (6-26); Blood Urea Nitrogen 20 mg/dL (6-20); Calcium 9.7 mg/dL (8.6-10.3); Carbon Dioxide 28 mEq/L (23-29); Chloride 102 mEq/L (98-107); Ethanol < 10 mg/dL (Less than 10); Glucose 74 mg/dL (70-105); Osmolality,Calculated 291 (280-300); Potassium 4.7 mEq/L (3.5-5.1); Salicylate < 2.5 mg/dL (15.0-30.0); Sodium 140 mEq/L (136-145); Thyroid Stimulating Hormone 0.997 mcIU/mL (0.340-5.600); eGFR For Non-African Americans > 60 (> 60)
[2018-03-26 14:28] LABS: Basophils % 0.4 %; Eosinophils # 0.2 K/mcL (0.0-0.6); Eosinophils % 2.6 %; Hematocrit 39.4 % (35.3-44.9); Hemoglobin 12.3 g/dL (11.5-15.4); Immature Granulocytes % 0.1 % (0-4); Lymphocytes # 2.3 K/mcL (0.6-4.6); Lymphocytes % 33.9 %; Mean Corpuscular HGB Conc 31.2 g/dL (31.6-35.5); Mean Corpuscular Volume 92.9 fL (83.0-100.0); Mean Platelet Volume 11.2 fL (9.4-12.4); Monocytes # 0.5 K/mcL (0.0-1.3); Monocytes % 7.1 %; Neutrophils # 3.9 K/mcL (1.6-8.9); Platelet Count 237 K/mcL (140-400); Red Blood Count 4.24 M/mcL (3.82-4.97); Red Cell Distribution Width 13.9 % (11.5-14.5); Segmented Neutrophils % 55.9 %
[2018-03-26 14:54] LABS: Bilirubin,Urine Negative (Negative); Blood,Urine Negative (Negative); Clarity,Urine Cloudy (Clear); Color,Urine Yellow (Yellow); Glucose,Urine (UA) Normal (Normal); Ketones,Urine Trace mg/dL (Negative); Leukocyte Esterase,Urine Negative (Negative); Nitrite,Urine Negative (Negative); Protein,Urine Negative (Neg-Trace); Specific Gravity,Urine 1.019 (1.010-1.025)
[2018-03-26 14:55] LABS: Bacteria,Urine Many per hpf (None-Few); Hyaline Casts,Urine None Seen per lpf (None-Few); RBC,Urine 0-3 per hpf (0-3); Squamous Epithelial Cell,Urine Moderate per lpf (None-Few); WBC,Urine 0-3 per hpf (0-3)
[2018-03-26 15:16] LABS: Amphetamine Screen,Urine Positive ng/mL (Cutoff=1000); Barbiturate Screen,Urine Negative ng/mL (Cutoff=200); Benzodiazepines Screen,Urine Negative ng/mL (Cutoff=200); Cannabinoid Screen,Urine Negative ng/mL (Cutoff = 50); Cocaine Screen,Urine Negative ng/mL (Cutoff= 300); Opiate Screen,Urine Negative ng/mL (Cutoff=300); Phencyclidine Screen,Urine Negative ng/mL (Cutoff=25)
[2018-03-26 15:26] LABS: ABG Base Excess 5 mEq/L (-2 to 3); ABG HCO3 31 mEq/L (21-27); ABG Oxygen Saturation 97 % (95-98); ABG PCO2 48 mmHg (35-45); ABG PH 7.42 pH Units (7.32-7.45); ABG PO2 92 mmHg (85-104); ABG TCO2 32 mEq/L (20-26)
[2018-03-26 15:41] LABS: Alanine Aminotransferase 22 Units/L (7-52); Albumin 4.2 g/dL (3.5-5.7); Albumin/Globulin Ratio 1.5 (1.1-2.2); Alkaline Phosphatase 99 Units/L (34-104); Aspartate Amino Transferase 41 Units/L (13-39); Bilirubin,Indirect 0.4 mg/dL (0.0-1.2); Bilirubin,Total 0.4 mg/dL (0.3-1.0); Globulin 2.8 g/dL (2.4-3.5)
[2018-03-26] MEDS ORDERED: *HR* Propofol 500 MG/50 ML BOTTLE IVP ONE (15:55)
[2018-03-26] MEDS ORDERED: Naloxone 0.4 MG/ML INJ IVP PRN (16:08)
[2018-03-26] MEDS ORDERED: Lacri-Lube 3.5 GM TUBE BOTH EYES PRN (16:10)
--- NOTE | 2018-03-26 16:37 | Pulmonology History & Physical ---
<Tevin Ellison - Last Filed: 03/26/18 17:07> Date of Encounter: 03/26/18 Time of Encounter: 16:37 Assessment and Plan (1) Acute encephalopathy Current visit: Yes Status: Acute Likely due to drug overdose. Patient required intubation for airway protection. At this time she is intubated and sedated. Head CT was negative. Initial urinary drug screen showed positive for amphetamines. We will repeat drug screen per recommendation of poison control. No other obvious causes of metabolic encephalopathy. Continue monitor overnight with a goal of extubation further evaluation tomorrow. Depending on the patient's mental state may need psychiatric consult if this was an intentional overdose. (2) Polysubstance dependence Current visit: No Status: Acute Positive for amphetamines and urinary drug screen and pills found within the bag was placed in the patient's vagina. It is unknown what these pills are. We will attempt to identify. Poison control was consulted and recommended activated charcoal and maintenance fluids. History of Present Illness Chief complaint: AMS HPI: Ms. Mccallum is a 53 year old female with unknown medical history who presents with altered mental status. At the time I examined the patient was intubated and sedated and there is no family present so history was obtained from discussions with the ER physicians and the medical record. They report that the patient was apparently on furlough from longterm today and presented with altered mental status and increased somnolence. Upon arrival the patient was alert and oriented moving all 4 extremity spontaneously and she gradually became more altered throughout her stay. Apparently during evaluation it was discovered that the patient had 2 bags of pills and what appeared to be tobacco within her vagina. Patient's mental status continued to decline and there is concerns for the patient's inability to protect her airway. Patient was given several rounds of Narcan with minimal response. At that point the decision was made to intubate for airway protection. At the time I examined the patient is intubated and sedated. Past Med Surg Social Fam HX - Past Medical History Medical history: GERD, hepatitis, hypertension, other Additional medical history: hernia with repair Psychiatric history: anxiety, bipolar, depression, previous psychiatric hospitalization - Past Surgical History Surgical History: other Additional surgical history: "ruptured ulcer" - Social History Smoking Status: Current every day smoker Smokeless Tobacco Status: No Alcohol use: none Drug use: cocaine, opiates, marijuana, methamphetamine, IV Drug Use, prescription drug abuse - Family History Father Adopted: Yes Mother Adopted: Yes Brother Adopted: Yes Medications and Allergies Sucralfate [Carafate] 1 gm PO QID 08/02/16 [History] Venlafaxine [Effexor] 75 mg PO TID 07/19/17 [History] Omeprazole [PriLOSEC] 20 mg PO DAILY #14 capsule. 08/04/17 [Rx] Furosemide [Lasix] 40 mg PO DAILY 03/26/18 [History] Gabapentin [Neurontin] 800 mg PO TID 03/26/18 [History] Lisinopril [Zestril] 10 mg PO DAILY 03/26/18 [History] 3 Allergy/AdvReac Type Severity Reaction Status Date / Time ibuprofen AdvReac Hives Verified 07/19/17 09:45 tramadol [From Ultram] AdvReac Hives Verified 07/19/17 09:44 ROS unobtainable: due to endotracheal tube All Systems: The remainder of the systems were reviewed and are negative Physical Examination General appearance: comatose ENT: oropharynx moist Neck: supple Effort: normal Auscultation: bilateral: clear Cardiovascular: regular rate and rhythm Gastrointestinal: normoactive bowel sounds, soft, non-tender Extremities: no cyanosis, no edema, no clubbing normal mental status, non-focal exam other (Unable to assess) Results - Laboratory Findings CBC and BMP: 03/26/18 12:16 03/26/18 12:16 ABG ABG pH 7.42 pH Units (7.32-7.45) 03/26/18 15:22 ABG pCO2 48 mmHg (35-45) H 03/26/18 15:22 ABG pO2 92 mmHg (85-104) 03/26/18 15:22 ABG O2 Saturation 97 % (95-98) 03/26/18 15:22 Abnormal lab findings: Abnormal lab results MCHC 31.2 g/dL (31.6-35.5) L 03/26/18 12:16 ABG pCO2 48 mmHg (35-45) H 03/26/18 15:22 ABG HCO3 31 mEq/L (21-27) H 03/26/18 15:22 ABG Total CO2 32 mEq/L (20-26) H 03/26/18 15:22 ABG Base Excess 5 mEq/L (-2 to 3) H 03/26/18 15:22 VBG pCO2 62 mmHg (41-51) H 03/26/18 12:32 VBG HCO3 33 mEq/L (21-27) H 03/26/18 12:32 BUN/Creatinine Ratio 31 (6-26) H 03/26/18 12:16 AST 41 Units/L (13-39) H 03/26/18 12:16 Urine Clarity Cloudy (Clear) A 03/26/18 14:44 Urine Ketones Trace mg/dL (Negative) H 03/26/18 14:44 Urine Urobilinogen 2.0 mg/dL (Normal) H 03/26/18 14:44 Ur Squamous Epith Cells Moderate per lpf (None-Few) H 03/26/18 14:44 Urine Bacteria Many per hpf (None-Few) H 03/26/18 14:44 Salicylates < 2.5 mg/dL (15.0-30.0) L 03/26/18 12:16 Acetaminophen < 10 mcg/mL (10-20) L 03/26/18 12:16 Ur Amphetamines Screen Positive ng/mL ([id number]) H 03/26/18 14:44 <Austen Cabrera M - Last Filed: 03/26/18 17:39> Date of Encounter: 03/26/18 History of Present Illness HPI: Ms. Mccallum is a 53 year old female All Systems: The remainder of the systems were reviewed and are negative Physical Examination Vital Signs: Vital Signs, Last 4 Hours Resp Pulse Ox 03/26/18 16:47 17 90 Results - Laboratory Findings CBC and BMP: 03/26/18 12:16 03/26/18 12:16 ABG ABG pH 7.42 pH Units (7.32-7.45) 03/26/18 15:22 ABG pCO2 48 mmHg (35-45) H 03/26/18 15:22 ABG pO2 92 mmHg (85-104) 03/26/18 15:22 ABG O2 Saturation 97 % (95-98) 03/26/18 15:22 Abnormal lab findings: Abnormal lab results MCHC 31.2 g/dL (31.6-35.5) L 03/26/18 12:16 ABG pCO2 48 mmHg (35-45) H 03/26/18 15:22 ABG HCO3 31 mEq/L (21-27) H 03/26/18 15:22 ABG Total CO2 32 mEq/L (20-26) H 03/26/18 15:22 ABG Base Excess 5 mEq/L (-2 to 3) H 03/26/18 15:22 VBG pCO2 62 mmHg (41-51) H 03/26/18 12:32 VBG HCO3 33 mEq/L (21-27) H 03/26/18 12:32 BUN/Creatinine Ratio 31 (6-26) H 03/26/18 12:16 AST 41 Units/L (13-39) H 03/26/18 12:16 Urine Clarity Cloudy (Clear) A 03/26/18 14:44 Urine Ketones Trace mg/dL (Negative) H 03/26/18 14:44 Urine Urobilinogen 2.0 mg/dL (Normal) H 03/26/18 14:44 Ur Squamous Epith Cells Moderate per lpf (None-Few) H 03/26/18 14:44 Urine Bacteria Many per hpf (None-Few) H 03/26/18 14:44 Salicylates < 2.5 mg/dL (15.0-30.0) L 03/26/18 12:16 Acetaminophen < 10 mcg/mL (10-20) L 03/26/18 12:16 Ur Amphetamines Screen Positive ng/mL (Bgjqyh=[id number]) H 03/26/18 14:44 - Attending Attestation I examined this patient and my medical decision-making was reviewed with the Resident Physician. I agree with the documented findings, disposition and treatment plan as described except to the extent set forth below. Patient seen and examined. Labs, radiology, chart personally reviewed. 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 Patient will remain on the ventilator and when she is more awake then plan for extubation Cardiovascular: stable GI: Nutrition per dietary and GI prophylaxis per routine Heme: DVT prophylaxis per routine ID: No evidence of infection Renal; urine out put and renal funtion reviewed Endorcine: blood glucose is monitored Lines: all lines checked and no evidence of infections Skin: skin care to prevent pressure ulcers per nursing routine care
[2018-03-26] MEDS ORDERED: Ringers Solution, Lactated 1,000 ML ONE (17:07)
[2018-03-26] MEDS ORDERED: Ringers Solution, Lactated 1,000 ML IVC SCH ×2 (17:15)
[2018-03-26] MEDS: Chlorhexidine Rinse 15 ML MOUTHWASH MM SCH (20:34)
[2018-03-26] MEDS: Lacri-Lube 3.5 GM TUBE BOTH EYES SCH ×2 (20:34→23:40)
[2018-03-26 23:31] LABS: Amphetamine Screen,Urine Positive ng/mL (Cutoff=1000); Barbiturate Screen,Urine Negative ng/mL (Cutoff=200); Benzodiazepines Screen,Urine Negative ng/mL (Cutoff=200); Cannabinoid Screen,Urine Negative ng/mL (Cutoff = 50); Cocaine Screen,Urine Negative ng/mL (Cutoff= 300); Opiate Screen,Urine Negative ng/mL (Cutoff=300); Phencyclidine Screen,Urine Negative ng/mL (Cutoff=25)
[2018-03-27 03:32] LABS: Basophils % 0.5 %; Eosinophils # 0.1 K/mcL (0.0-0.6); Eosinophils % 1.1 %; Hemoglobin 11.3 g/dL (11.5-15.4); Immature Granulocytes % 0.2 % (0-4); Lymphocytes % 23.8 %; Mean Corpuscular HGB Conc 32.3 g/dL (31.6-35.5); Mean Platelet Volume 10.3 fL (9.4-12.4); Monocytes # 0.6 K/mcL (0.0-1.3); Monocytes % 7.3 %; Neutrophils # 5.5 K/mcL (1.6-8.9); Platelet Count 212 K/mcL (140-400); Red Blood Count 3.89 M/mcL (3.82-4.97); Red Cell Distribution Width 13.8 % (11.5-14.5); Segmented Neutrophils % 67.1 %
[2018-03-27] MEDS: Lacri-Lube 3.5 GM TUBE BOTH EYES SCH ×3 (03:41→10:55)
[2018-03-27 03:53] LABS: BUN/Creatinine Ratio 30 (6-26); Blood Urea Nitrogen 14 mg/dL (6-20); Calcium 8.5 mg/dL (8.6-10.3); Carbon Dioxide 26 mEq/L (23-29); Chloride 105 mEq/L (98-107); Glucose 108 mg/dL (70-105); Magnesium 1.6 mg/dL (1.6-2.6); Osmolality,Calculated 285 (280-300); Potassium 3.6 mEq/L (3.5-5.1); Sodium 137 mEq/L (136-145); eGFR For Non-African Americans > 60 (> 60)
[2018-03-27 05:09] LABS: ABG Base Excess 4 mEq/L (-2 to 3); ABG HCO3 28 mEq/L (21-27); ABG Oxygen Saturation 98 % (95-98); ABG PCO2 40 mmHg (35-45); ABG PH 7.45 pH Units (7.32-7.45); ABG PO2 106 mmHg (85-104); ABG TCO2 29 mEq/L (20-26); Blood Gas Modality ASSIST CONTROL; Blood Gas PEEP 5 cm H2O; Blood Gas Respiration Rate 12; Blood Gas VT 500 cc
--- NOTE | 2018-03-27 07:38 | Pulmonology Progress Note ---
<Christy Byrd - Last Filed: 03/27/18 09:28> Date of Encounter: 03/27/18 Time of Encounter: 07:40 Assessment and Plan (1) Acute encephalopathy Current Visit: Yes Status: Acute The acute altered mental status and change in respiratory status is likely due to drug overdose. Her urine drug screen was positive for amphetamine. Today she is intubated and sedated. Her CT of the head yesterday was negative for acute process. Goal to extubate today. (2) Polysubstance abuse Current Visit: Yes Status: Acute Her urine drug screen is positive for amphetamine and there was a bag of pills found in her vagina. Poison control consulted and recommended activated charcoal and maintenance fluids and she received one dose of charcoal. -Her bowel sounds are hypoactive, UDS negative for opiods -After extubation will start her on stool softener Subjective Principal diagnosis: Altered mental status Interval history: Ms. Mccallum was seen at bedside this morning. She is intubated as a result unable to provide any history. We are planning to extubate this morning. Objective PUL Vital signs: Last Vital Signs Temp 98.9 F 03/27/18 07:34 Pulse 83 03/27/18 07:00 Resp 12 03/27/18 07:17 BP 124/93 03/27/18 07:00 Pulse Ox 97 03/27/18 07:17 General appearance: other (intubated) ENT: oropharynx moist Neck: supple Auscultation: bilateral: clear Cardiovascular: regular rate and rhythm Gastrointestinal: hypoactive bowel sounds, soft Extremities: no cyanosis, no edema Musculoskeletal: no deformities Ventilator Settings Ventilator Settings: Ventilator Settings, Last 8 Hours Ventilator Tidal Volume 500 Setting Ventilator Tidal Volume 500 Setting Ventilator Tidal Volume 500 Setting Ventilator Tidal Volume 500 Setting Ventilator Tidal Volume 500 Setting Ventilator Tidal Volume 500 Setting Ventilator Tidal Volume 500 Setting Ventilator Tidal Volume 500 Setting Ventilator Tidal Volume 500 Setting Ventilator Tidal Volume 500 Setting Ventilator Tidal Volume 500 Setting Ventilator Tidal Volume 500 Setting Ventilator Tidal Volume 500 Setting Ventilator Respiratory Rate 12 Setting Ventilator Respiratory Rate 12 Setting Ventilator Respiratory Rate 12 Setting Ventilator Respiratory Rate 12 Setting Ventilator Respiratory Rate 12 Setting Ventilator Respiratory Rate 12 Setting Ventilator Respiratory Rate 12 Setting Ventilator Respiratory Rate 12 Setting Ventilator Respiratory Rate 12 Setting Ventilator Respiratory Rate 12 Setting Ventilator Respiratory Rate 12 Setting Ventilator Respiratory Rate 12 Setting Ventilator Respiratory Rate 12 Setting Actual Respiratory Rate 12 Actual Respiratory Rate 12 Actual Respiratory Rate 12 Actual Respiratory Rate 12 Actual Respiratory Rate 12 Actual Respiratory Rate 12 Actual Respiratory Rate 12 Actual Respiratory Rate 12 Actual Respiratory Rate 12 Actual Respiratory Rate 12 Actual Respiratory Rate 12 Actual Respiratory Rate 12 Positive End Expiratory 5 Pressure Positive End Expiratory 5 Pressure Positive End Expiratory 5 Pressure Positive End Expiratory 5 Pressure Positive End Expiratory 5 Pressure Positive End Expiratory 5 Pressure Positive End Expiratory 5 Pressure Positive End Expiratory 5 Pressure Positive End Expiratory 5 Pressure Positive End Expiratory 5 Pressure Positive End Expiratory 5 Pressure Positive End Expiratory 5 Pressure Positive End Expiratory 5 Pressure Peak Inspiratory Airway 21 Pressure Peak Inspiratory Airway 20 Pressure Peak Inspiratory Airway 20 Pressure Peak Inspiratory Airway 20 Pressure Peak Inspiratory Airway 20 Pressure Peak Inspiratory Airway 20 Pressure Peak Inspiratory Airway 20 Pressure Peak Inspiratory Airway 20 Pressure Peak Inspiratory Airway 19 Pressure Peak Inspiratory Airway 19 Pressure Peak Inspiratory Airway 19 Pressure Peak Inspiratory Airway 20 Pressure Results - Laboratory Findings CBC and BMP: 03/27/18 03:13 03/27/18 03:13 ABG ABG pH 7.45 pH Units (7.32-7.45) 03/27/18 05:06 ABG pCO2 40 mmHg (35-45) 03/27/18 05:06 ABG pO2 106 mmHg (85-104) H 03/27/18 05:06 ABG O2 Saturation 98 % (95-98) 03/27/18 05:06 Abnormal lab findings: Abnormal lab results Hgb 11.3 g/dL (11.5-15.4) L 03/27/18 03:13 Hct 35.0 % (35.3-44.9) L 03/27/18 03:13 ABG pO2 106 mmHg (85-104) H 03/27/18 05:06 ABG HCO3 28 mEq/L (21-27) H 03/27/18 05:06 ABG Total CO2 29 mEq/L (20-26) H 03/27/18 05:06 ABG Base Excess 4 mEq/L (-2 to 3) H 03/27/18 05:06 VBG pCO2 62 mmHg (41-51) H 03/26/18 12:32 VBG HCO3 33 mEq/L (21-27) H 03/26/18 12:32 Creatinine 0.47 mg/dL (0.60-1.20) L 03/27/18 03:13 BUN/Creatinine Ratio 30 (6-26) H 03/27/18 03:13 Glucose 108 mg/dL (70-105) H 03/27/18 03:13 POC Glucose 137 mg/dL (70-99) H 03/26/18 16:31 Calcium 8.5 mg/dL (8.6-10.3) L 03/27/18 03:13 AST 41 Units/L (13-39) H 03/26/18 12:16 Urine Clarity Cloudy (Clear) A 03/26/18 14:44 Urine Ketones Trace mg/dL (Negative) H 03/26/18 14:44 Urine Urobilinogen 2.0 mg/dL (Normal) H 03/26/18 14:44 Ur Squamous Epith Cells Moderate per lpf (None-Few) H 03/26/18 14:44 Urine Bacteria Many per hpf (None-Few) H 03/26/18 14:44 Salicylates < 2.5 mg/dL (15.0-30.0) L 03/26/18 12:16 Acetaminophen < 10 mcg/mL (10-20) L 03/26/18 12:16 Ur Amphetamines Screen Positive ng/mL ([id number]=[id number]) H 03/26/18 19:09 - Diagnostic Findings Chest x-ray: image reviewed Additional studies: KUB: bowel gas pattern nonobstructive, moderate amount of stool - Clinical Findings Intake & Output: Intake & Output 03/26/18 03/26/18 03/27/18 15:59 23:59 07:59 Intake Total 1150 / 1150 1100 / 1100 Output Total 600 / 600 375 / 375 Balance 550 / 550 725 / 725 Weight 62.7 kg 62.7 kg Consult Discharge Plan - Plan Referrals: NONE,PCP [Primary Care Provider] - <Austen Cabrera - Last Filed: 03/27/18 10:11> Date of Encounter: 03/27/18 Objective PUL Vital signs: Last Vital Signs Temp 98.9 F 03/27/18 08:00 Pulse 93 03/27/18 08:00 Resp 15 03/27/18 08:00 BP 129/91 03/27/18 08:00 Pulse Ox 98 03/27/18 08:00 Ventilator Settings Ventilator Settings: Ventilator Settings, Last 8 Hours Ventilator Tidal Volume 500 Setting Ventilator Tidal Volume 500 Setting Ventilator Tidal Volume 500 Setting Ventilator Tidal Volume 500 Setting Ventilator Tidal Volume 500 Setting Ventilator Tidal Volume 500 Setting Ventilator Tidal Volume 500 Setting Ventilator Tidal Volume 500 Setting Ventilator Tidal Volume 500 Setting Ventilator Tidal Volume 500 Setting Ventilator Tidal Volume 500 Setting Ventilator Tidal Volume 500 Setting Ventilator Tidal Volume 500 Setting Ventilator Respiratory Rate 12 Setting Ventilator Respiratory Rate 12 Setting Ventilator Respiratory Rate 12 Setting Ventilator Respiratory Rate 12 Setting Ventilator Respiratory Rate 12 Setting Ventilator Respiratory Rate 12 Setting Ventilator Respiratory Rate 12 Setting Ventilator Respiratory Rate 12 Setting Ventilator Respiratory Rate 12 Setting Ventilator Respiratory Rate 12 Setting Ventilator Respiratory Rate 12 Setting Ventilator Respiratory Rate 12 Setting Ventilator Respiratory Rate 12 Setting Actual Respiratory Rate 12 Actual Respiratory Rate 12 Actual Respiratory Rate 12 Actual Respiratory Rate 12 Actual Respiratory Rate 12 Actual Respiratory Rate 12 Actual Respiratory Rate 12 Actual Respiratory Rate 12 Actual Respiratory Rate 12 Actual Respiratory Rate 12 Actual Respiratory Rate 12 Actual Respiratory Rate 12 Positive End Expiratory 5 Pressure Positive End Expiratory 5 Pressure Positive End Expiratory 5 Pressure Positive End Expiratory 5 Pressure Positive End Expiratory 5 Pressure Positive End Expiratory 5 Pressure Positive End Expiratory 5 Pressure Positive End Expiratory 5 Pressure Positive End Expiratory 5 Pressure Positive End Expiratory 5 Pressure Positive End Expiratory 5 Pressure Positive End Expiratory 5 Pressure Positive End Expiratory 5 Pressure Peak Inspiratory Airway 20 Pressure Peak Inspiratory Airway 21 Pressure Peak Inspiratory Airway 20 Pressure Peak Inspiratory Airway 20 Pressure Peak Inspiratory Airway 20 Pressure Peak Inspiratory Airway 20 Pressure Peak Inspiratory Airway 20 Pressure Peak Inspiratory Airway 20 Pressure Peak Inspiratory Airway 20 Pressure Peak Inspiratory Airway 19 Pressure Peak Inspiratory Airway 19 Pressure Peak Inspiratory Airway 19 Pressure Results - Laboratory Findings CBC and BMP: 03/27/18 03:13 03/27/18 03:13 ABG ABG pH 7.45 pH Units (7.32-7.45) 03/27/18 05:06 ABG pCO2 40 mmHg (35-45) 03/27/18 05:06 ABG pO2 106 mmHg (85-104) H 03/27/18 05:06 ABG O2 Saturation 98 % (95-98) 03/27/18 05:06 Abnormal lab findings: Abnormal lab results Hgb 11.3 g/dL (11.5-15.4) L 03/27/18 03:13 Hct 35.0 % (35.3-44.9) L 03/27/18 03:13 ABG pO2 106 mmHg (85-104) H 03/27/18 05:06 ABG HCO3 28 mEq/L (21-27) H 03/27/18 05:06 ABG Total CO2 29 mEq/L (20-26) H 03/27/18 05:06 ABG Base Excess 4 mEq/L (-2 to 3) H 03/27/18 05:06 VBG pCO2 62 mmHg (41-51) H 03/26/18 12:32 VBG HCO3 33 mEq/L (21-27) H 03/26/18 12:32 Creatinine 0.47 mg/dL (0.60-1.20) L 03/27/18 03:13 BUN/Creatinine Ratio 30 (6-26) H 03/27/18 03:13 Glucose 108 mg/dL (70-105) H 03/27/18 03:13 POC Glucose 137 mg/dL (70-99) H 03/26/18 16:31 Calcium 8.5 mg/dL (8.6-10.3) L 03/27/18 03:13 AST 41 Units/L (13-39) H 03/26/18 12:16 Urine Clarity Cloudy (Clear) A 03/26/18 14:44 Urine Ketones Trace mg/dL (Negative) H 03/26/18 14:44 Urine Urobilinogen 2.0 mg/dL (Normal) H 03/26/18 14:44 Ur Squamous Epith Cells Moderate per lpf (None-Few) H 03/26/18 14:44 Urine Bacteria Many per hpf (None-Few) H 03/26/18 14:44 Salicylates < 2.5 mg/dL (15.0-30.0) L 03/26/18 12:16 Acetaminophen < 10 mcg/mL (10-20) L 03/26/18 12:16 Ur Amphetamines Screen Positive ng/mL (Lfrxcn=[id number]) H 03/26/18 19:09 - Clinical Findings Intake & Output: Intake & Output 03/26/18 03/27/18 03/27/18 23:59 07:59 15:59 Intake Total 1150 / 1150 1180 / 1180 Output Total 600 / 600 375 / 375 Balance 550 / 550 805 / 805 Weight 62.7 kg 62.7 kg - Attending Attestation I examined this patient and my medical decision-making was reviewed with the Resident Physician. I agree with the documented findings, disposition and treatment plan as described except to the extent set forth below. Patient seen and examined. Labs, radiology, chart personally reviewed. 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 Patient apparently failed spontaneous breathing trial which was most likely related to sedation and try again Cardiovascular: stable GI: Nutrition per dietary and GI prophylaxis per routine. Heme: DVT prophylaxis per routine Renal; urine out put and renal funtion reviewed Endorcine: blood glucose is monitored Lines: all lines checked and no evidence of infections Skin: skin care to prevent pressure ulcers per nursing routine care Possible transfer if remain stable that can be transferred to the floor.
[2018-03-27] MEDS: Chlorhexidine Rinse 15 ML MOUTHWASH MM SCH (07:55)
[2018-03-27] MEDS ORDERED: Pantoprazole 40 MG VIAL IVP SCH (09:00)
[2018-03-27] MEDS ORDERED: *HR* Heparin 5,000 UNIT/ML VIAL SQ SCH (10:30)
[2018-03-27] MEDS: Nicotine 21 MG PATCH.TD24 TD SCH (17:22)
[2018-03-27] MEDS: *HR* Heparin 5,000 UNIT/ML VIAL SQ SCH (17:22)
--- NOTE | 2018-03-27 21:20 | Electrocardiograph Report ---
[place] [facility] Test Date: 2018-03-26 Pat Name: Gypsy Mccallum Department: 103 Room: 04 Gender: F Editing Computer Publisher: [facility] : 1965 Requested By: Kem Jacobs Order Number: [id number] Reading MD: Heather Landers Measurements Intervals [place] Rate: 76 P: 58 DE: 115 QRS: 22 QRSD: 92 T: 18 QT: 362 QTc: 393 Interpretive Statements SINUS RHYTHM WITH SHORT DE INTERVAL Electronically Signed On 03-27-2018 5:41:29 EDT by Heather Landers
[2018-03-28] MEDS ORDERED: tiZANidine 4 MG TABLET PO ONE (00:10)
--- NOTE | 2018-03-28 02:16 | Electrocardiograph Report ---
[address] [place], [place] [address] Test Date: 2018-03-26 Pat Name: Gypsy Mccallum Department: 103 Room: 3A31 Gender: F [place] Sorter: [facility] : 1965 Requested By: Kem Jacobs Order Number: [id number] Reading MD: Jyothi Valero Measurements Intervals [place] Rate: 79 P: 70 MA: 123 QRS: 52 QRSD: 90 T: 60 QT: 382 QTc: 416 Interpretive Statements SINUS RHYTHM WITH SINUS ARRHYTHMIA Electronically Signed On 03-27-2018 16:11:18 EDT by Jyothi Valero
[2018-03-28] MEDS: *HR* Heparin 5,000 UNIT/ML VIAL SQ SCH ×2 (06:01→17:57)
[2018-03-28] MEDS ORDERED: 0.9 % Sodium Chloride 1,000 ML IVC ONE (07:33)
[2018-03-28] MEDS ORDERED: 0.9 % Sodium Chloride 1,000 ML ONE (07:53)
[2018-03-28] MEDS: Nicotine 21 MG PATCH.TD24 TD SCH (09:42)
--- NOTE | 2018-03-28 14:10 | Internal Med Progress Note ---
Hospitalist Progress Note - Encounter Date of Encounter: 03/28/18 Time of Encounter: 14:07 - Subjective Interval History: Seen and examined at bedside. Says she feels "off". She is also c/o back pain. No CP or SOB - Exam Vitals: Temp Pulse Resp BP Pulse Ox 97.8 F 67 14 99/65 97 03/28/18 11:02 03/28/18 11:02 03/28/18 11:02 03/28/18 11:02 03/28/18 11:02 Exam: General appearance: drowsy but oriented ENT: oropharynx moist Neck: supple Effort: normal Auscultation: bilateral: clear Cardiovascular: regular rate and rhythm Gastrointestinal: normoactive bowel sounds, soft, non-tender Extremities: no cyanosis, no edema, no clubbing normal mental status, non-focal exam - Assessment and Plan (1) Hypotension Current Visit: Yes Status: Acute Assessment and Plan: with SBPs in the 70s and 80s. Asymptomatic; no tachycardia, maintaining mentation. Holding home BP medications. Monitor BP and titrate PRN (2) Overdose Current Visit: Yes Status: Acute Assessment and Plan: known illegal/recreational drug use. [facility] from [facility] facility with altered mental status. UDS positive for methamphetamines. Patient admitted to taking overdose of gabapentin and attempt to "sleep" my 8 days away. Denied SI. 1:1 sitter, suicide precautions, Psych consult. Patient may not leave AMA, will need to be pink slipped if she attempts to leave AMA (3) Acute encephalopathy Current Visit: Yes Status: Acute Assessment and Plan: in the setting of gabapentin overdose. UDS positive for amphetamines. Head CT non-acute. Cont to have some lethargy however appropriate orientation. Supportive care for now (4) Polysubstance abuse Current Visit: Yes Status: Acute Assessment and Plan: known illegal/recreational drug use. Presented from corrections facility with altered mental status. UDS positive for methamphetamines. Patient admitted to taking overdose of gabapentin and attempt to "sleep" my 8 days away. Cessation advised (5) Hepatitis C Current Visit: No Status: Chronic Assessment and Plan: per hx. Follow-up outpatient DVT Prophylaxis: heparin - Time Spent with Patient Total time spent is greater than 50% in coordination of care (as documented) at patient's floor/unit and/or counseling patient: Internal Medicine: Result - Labs CBC & Chem 7: 03/27/18 03:13 03/27/18 03:13 - ABG Interpretation ABG results: ABG ABG pH 7.45 pH Units (7.32-7.45) 03/27/18 05:06 ABG pCO2 40 mmHg (35-45) 03/27/18 05:06 ABG pO2 106 mmHg (85-104) H 03/27/18 05:06 ABG O2 Saturation 98 % (95-98) 03/27/18 05:06 Consult Discharge Plan - Plan Referrals: NONE,PCP [Primary Care Provider] - (2) Overdose Qualifiers: Encounter type: initial encounter Injury intent: undetermined intent Qualified Code(s): T50.904A - Poisoning by unspecified drugs, medicaments and biological substances, undetermined, initial encounter (5) Hepatitis C Qualifiers: Viral hepatitis chronicity: chronic Hepatic coma status: without hepatic coma Qualified Code(s): B18.2 - Chronic viral hepatitis C
[2018-03-28] MEDS: 0.9 % Sodium Chloride 1,000 ML IVC SCH (15:08)
--- NOTE | 2018-03-28 16:28 | Event Note ---
Date of Encounter: 03/28/18 Time of Encounter: 16:27 Evaluated by psychiatry who did not feel patient was a harm to self or others. No SI. No indication for pink slipped, suicide precautions or one-to-one sitter. We will change Effexor to extended release and add baclofen 3 times a day to assist with alcohol cravings until she has discharge.
--- NOTE | 2018-03-28 16:54 | Consult Note ---
Date of Encounter: 03/28/18 Time of Encounter: 16:15 Assessment & Recommendation (1) Recurrent major depressive disorder Current visit: Yes Status: Acute Qualifiers: Active/Remission status: in remission of unspecified degree Qualified Code( s): F33.40 - Major depressive disorder, recurrent, in remission, unspecified (2) Polysubstance abuse Current visit: Yes Status: Acute (3) Hypotension Current visit: Yes Status: Acute Qualifiers: Hypotension type: other hypotension type Qualified Code(s): I95.89 - Other hypotension History of Present Illness Patient: known to practice within the last 3 years Requesting Physician: Td Medina Reason for consult: overdose of gabapentin History of present illness: Ms. Mccallum is a 53 year old female CC: I took an overdose and gabapentin and still face 8 days in skilled nursing for stealing. History of present illness. This is a patient with a psychiatric history. The primary diagnosis was major depressive disorder severe recurrent at the time that she was discharged from the hospital she has been to one and she has been treated at [facility]. The patient reports that she has not been compliant with the clinic. This is in part due to an argument over whether she should have Klonopin or gabapentin. The patient says she does not want to take gabapentin. She says that she has a chemical imbalance and that she has been on Effexor 3 times a day. History of present illness. This patient presents with a psychiatric disorder and overdose but denies any intent. On further questioning the patient reports that she first went to [facility] correction[facility] for women in 1987 this was over stealing a dollars and 30 seconds and cats. Her most recent event is stealing some [employer] hard lemonade The patient reports that she has had 6 or serrations in [place]. She says that she has been diagnosed with adult ADD that she spent time in the residential treatment unit while in [facility]. This suggests that she has a psychiatric disorder such as major depressive disorder and antisocial personality disorder. Other features include the fact that she has been on and off probation. That she has had problems with substance abuse. And that she attempted to hide tobacco at the time of admission. CC: Td Medina Past Med Surg Social Fam HX - Past Medical History Medical history: GERD, hepatitis, hypertension, other - Past Psychiatric History Psychiatric history: Reports: depression, previous psychiatric hospitalization Family psychiatric history: Unknown Family History of Suicide: Unknown - Past Surgical History Surgical History: other - Social History Smoking Status: Current every day smoker Smokeless Tobacco Status: No Alcohol use: none Drug use: cocaine, opiates, marijuana, methamphetamine, IV Drug Use, prescription drug abuse Occupational status: unemployed Current living situation: Home - Independent Activity Level: Independent ambulation Recent Out of Country Travel Within the Last 8 Weeks: Yes Exposure or Possible Exposure to Illness During Travel: Yes - Family History Father Adopted: Yes Mother Adopted: Yes Brother Adopted: Yes Medications & Allergies Sucralfate [Carafate] 1 gm PO QID 08/02/16 [History] Venlafaxine [Effexor] 75 mg PO TID 07/19/17 [History] Omeprazole [PriLOSEC] 20 mg PO DAILY #14 capsule. 08/04/17 [Rx] Furosemide [Lasix] 40 mg PO DAILY 03/26/18 [History] Gabapentin [Neurontin] 800 mg PO TID 03/26/18 [History] Lisinopril [Zestril] 10 mg PO DAILY 03/26/18 [History] 3 Allergy/AdvReac Type Severity Reaction Status Date / Time ibuprofen AdvReac Hives Verified 07/19/17 09:45 tramadol [From Ultram] AdvReac Hives Verified 07/19/17 09:44 Review of Systems Psychiatric: Reports: anxiety, difficulty concentrating, mood swings Psychiatry Exam - Constitutional Vitals: Temp Pulse Resp BP Pulse Ox 97.9 F 77 16 91/76 92 03/28/18 15:45 03/28/18 15:45 03/28/18 15:45 03/28/18 15:45 03/28/18 15:45 General appearance: age & developmentally appropriate, well-groomed, well- nourished - Musculoskeletal Gait: normal Station: shaky Strength & Tone: normal for patient - Psychiatric Patient Orientation: Yes Person, Yes Time, Yes Place Level of alertness: Alert Behavior: calm, cooperative Psychomotor activity: Normal Eye Contact: Maintains Eye Contact Mood Description: Euthymic/stable, Irritable Affect description: congruent with mood, full range Speech Volume: Normal Speech pattern: normal rate, normal rhythm, normal tone, fluent, spontaneous, excessive Language & Vocabulary: consistent with education Thought Process: Linear, Goal Oriented Thought Content: No Suicidal ideation, No Homicidal ideation, No Overt delusions Perceptual Disturbances: No Auditory hallucinations, No Visual hallucinations Attention Span Ability: Capable of Focused Attention Memory Description: Grossly Intact Patient Reliability: Reliable Historian Fund of knowledge: Yes abstraction ability, Yes aware of current events Intelligence Estimate: Average Judgment: Fair Insight: Partial Results - Labs Labs: Laboratory Last Values WBC 8.3 K/mcL (4.3-11.1) 03/27/18 03:13 RBC 3.89 M/mcL (3.82-4.97) 03/27/18 03:13 Hgb 11.3 g/dL (11.5-15.4) L 03/27/18 03:13 Hct 35.0 % (35.3-44.9) L 03/27/18 03:13 MCV 90.0 fL (83.0-100.0) 03/27/18 03:13 MCH 29.0 pg (28.0-33.3) 03/27/18 03:13 MCHC 32.3 g/dL (31.6-35.5) 03/27/18 03:13 RDW 13.8 % (11.5-14.5) 03/27/18 03:13 Plt Count 212 K/mcL (140-400) 03/27/18 03:13 MPV 10.3 fL (9.4-12.4) 03/27/18 03:13 Immature Gran % 0.2 % (0-4) 03/27/18 03:13 Seg Neutrophils % 67.1 % 03/27/18 03:13 Lymphocytes % 23.8 % 03/27/18 03:13 Monocytes % 7.3 % 03/27/18 03:13 Eosinophils % 1.1 % 03/27/18 03:13 Basophils % 0.5 % 03/27/18 03:13 Neutrophils # 5.5 K/mcL (1.6-8.9) 03/27/18 03:13 Lymphocytes # 2.0 K/mcL (0.6-4.6) 03/27/18 03:13 Monocytes # 0.6 K/mcL (0.0-1.3) 03/27/18 03:13 Eosinophils # 0.1 K/mcL (0.0-0.6) 03/27/18 03:13 Basophils # 0.0 K/mcL (0.0-0.2) 03/27/18 03:13 Sample Site R Radial 03/26/18 15:22 ABG pH 7.45 pH Units (7.32-7.45) 03/27/18 05:06 ABG pCO2 40 mmHg (35-45) 03/27/18 05:06 ABG pO2 106 mmHg (85-104) H 03/27/18 05:06 ABG HCO3 28 mEq/L (21-27) H 03/27/18 05:06 ABG Total CO2 29 mEq/L (20-26) H 03/27/18 05:06 ABG O2 Saturation 98 % (95-98) 03/27/18 05:06 ABG Base Excess 4 mEq/L (-2 to 3) H 03/27/18 05:06 Kailash Test Positive 03/27/18 05:06 VBG pH 7.33 pH Units (7.32-7.42) 03/26/18 12:32 VBG pCO2 62 mmHg (41-51) H 03/26/18 12:32 VBG pO2 45 mmHg (25-50) 03/26/18 12:32 VBG HCO3 33 mEq/L (21-27) H 03/26/18 12:32 Respiration Rate 12 03/27/18 05:06 O2 Delivery Device Adult Vent 03/27/18 05:06 Blood Gas Modality ASSIST CONTROL 03/27/18 05:06 Inspired O2 30.0 (1-15=lpm [id number]%) 03/27/18 05:06 Tidal Volume 500 cc 03/27/18 05:06 PEEP 5 cm H2O 03/27/18 05:06 Sodium 137 mEq/L (136-145) 03/27/18 03:13 Potassium 3.6 mEq/L (3.5-5.1) 03/27/18 03:13 Chloride 105 mEq/L (98-107) 03/27/18 03:13 Carbon Dioxide 26 mEq/L (23-29) 03/27/18 03:13 BUN 14 mg/dL (6-20) 03/27/18 03:13 Creatinine 0.47 mg/dL (0.60-1.20) L 03/27/18 03:13 Est GFR ( Amer) > 60 (> 60) 03/27/18 03:13 Est GFR (Non-Af Amer) > 60 (> 60) 03/27/18 03:13 BUN/Creatinine Ratio 30 (6-26) H 03/27/18 03:13 Glucose 108 mg/dL (70-105) H 03/27/18 03:13 POC Glucose 137 mg/dL (70-99) H 03/26/18 16:31 Calculated Osmolality 285 (280-300) 03/27/18 03:13 Calcium 8.5 mg/dL (8.6-10.3) L 03/27/18 03:13 Magnesium 1.6 mg/dL (1.6-2.6) 03/27/18 03:13 Total Bilirubin 0.4 mg/dL (0.3-1.0) 03/26/18 12:16 Direct Bilirubin 0.0 mg/dL (0.0-0.2) 03/26/18 12:16 Indirect Bilirubin 0.4 mg/dL (0.0-1.2) 03/26/18 12:16 AST 41 Units/L (13-39) H 03/26/18 12:16 ALT 22 Units/L (7-52) 03/26/18 12:16 Alkaline Phosphatase 99 Units/L (34-104) 03/26/18 12:16 Ammonia 42 mcmol/L (16-53) 03/26/18 13:06 Serum Total Protein 7.0 g/dL (6.4-8.9) 03/26/18 12:16 Albumin 4.2 g/dL (3.5-5.7) 03/26/18 12:16 Globulin 2.8 g/dL (2.4-3.5) 03/26/18 12:16 Albumin/Globulin Ratio 1.5 (1.1-2.2) 03/26/18 12:16 TSH 0.997 mcIU/mL (0.340-5.600) 03/26/18 12:16 Urine Color Yellow (Yellow) 03/26/18 14:44 Urine Clarity Cloudy (Clear) A 03/26/18 14:44 Urine pH 6.0 pH Units (5.0-8.0) 03/26/18 14:44 Ur Specific [place] 1.019 (1.010-1.025) 03/26/18 14:44 Urine Protein Negative mg/dL (Neg-Trace) 03/26/18 14:44 Urine Glucose (UA) Normal mg/dL (Normal) 03/26/18 14:44 Urine Ketones Trace mg/dL (Negative) H 03/26/18 14:44 Urine Blood Negative (Negative) 03/26/18 14:44 Urine Nitrite Negative (Negative) 03/26/18 14:44 Urine Bilirubin Negative (Negative) 03/26/18 14:44 Urine Urobilinogen 2.0 mg/dL (Normal) H 03/26/18 14:44 Ur Leukocyte Esterase Negative (Negative) 03/26/18 14:44 Urine Microscopic RBC 0-3 per hpf (0-3) 03/26/18 14:44 Urine Microscopic WBC 0-3 per hpf (0-3) 03/26/18 14:44 Ur Squamous Epith Cells Moderate per lpf (None-Few) H 03/26/18 14:44 Urine Bacteria Many per hpf (None-Few) H 03/26/18 14:44 Hyaline Casts None Seen per lpf (None-Few) 03/26/18 14:44 Salicylates < 2.5 mg/dL (15.0-30.0) L 03/26/18 12:16 Urine Opiates Screen Negative ng/mL (Oyhfus=904) 03/26/18 19:09 Acetaminophen < 10 mcg/mL (10-20) L 03/26/18 12:16 Ur Barbiturates Screen Negative ng/mL (Qfpqje=470) 03/26/18 19:09 Ur Phencyclidine Scrn Negative ng/mL (Cutoff=25) 03/26/18 19:09 Ur Amphetamines Screen Positive ng/mL (Vbxgae=8691) H 03/26/18 19:09 U Benzodiazepines Scrn Negative ng/mL (Yvxdcr=854) 03/26/18 19:09 Urine Cocaine Screen Negative ng/mL (Cutoff= 300) 03/26/18 19:09 U Marijuana (THC) Screen Negative ng/mL (Cutoff = 50) 03/26/18 19:09 Ur Drug Screen Interp See Below 03/26/18 19:09 Ethyl Alcohol < 10 mg/dL (Less than 10) 03/26/18 12:16 - Impressions Impressions Chest X-Ray 03/28/18 14:18 IMPRESSION: Mild bibasilar atelectasis. Removal of endotracheal tube. D/ / 03/28/2018 15:46:26 Cr Gray MD / cheikh Interpreting Provider: Cr Gray MD Consult Discharge Plan - Plan Referrals: NONE,PCP [Primary Care Provider] -
[2018-03-28 18:01] LABS: Amphetamine Screen,Urine Positive ng/mL (Cutoff=1000); Barbiturate Screen,Urine Negative ng/mL (Cutoff=200); Benzodiazepines Screen,Urine Positive ng/mL (Cutoff=200); Cannabinoid Screen,Urine Negative ng/mL (Cutoff = 50); Cocaine Screen,Urine Negative ng/mL (Cutoff= 300); Opiate Screen,Urine Negative ng/mL (Cutoff=300); Phencyclidine Screen,Urine Negative ng/mL (Cutoff=25)
[2018-03-28] MEDS: Baclofen 10 MG TABLET PO SCH (22:11)
[2018-03-29] MEDS: 0.9 % Sodium Chloride 1,000 ML IVC SCH (05:50)
[2018-03-29] MEDS: *HR* Heparin 5,000 UNIT/ML VIAL SQ SCH ×2 (05:52→17:13)
[2018-03-29] MEDS: Baclofen 10 MG TABLET PO SCH ×3 (09:09→22:55)
[2018-03-29] MEDS: Nicotine 21 MG PATCH.TD24 TD SCH (09:09)
[2018-03-29] MEDS: Venlafaxine XR (24 HR) 75 MG CAP.ER.24H PO SCH (09:09)
--- NOTE | 2018-03-29 12:32 | Internal Med Progress Note ---
Hospitalist Progress Note - Encounter Date of Encounter: 03/29/18 Time of Encounter: 12:30 - Subjective Interval History: Seen and examined at bedside. Still says she doesn't feel right. Feel weak and tired. She thinks she needs one more night in the hospital - Exam Vitals: Temp Pulse Resp BP Pulse Ox 97.6 F 68 14 110/76 96 03/29/18 11:12 03/29/18 11:12 03/29/18 11:12 03/29/18 11:12 03/29/18 11:12 Exam: General appearance: alert and oriented ENT: oropharynx moist Neck: supple Effort: normal Auscultation: bilateral: clear Cardiovascular: regular rate and rhythm Gastrointestinal: normoactive bowel sounds, soft, non-tender Extremities: no cyanosis, no edema, no clubbing normal mental status, non-focal exam - Assessment and Plan (1) Hypotension Current Visit: Yes Status: Acute Assessment and Plan: with SBPs in the 70s and 80s. Asymptomatic; no tachycardia, maintaining mentation. Holding home BP meds and lasix. BP improved on 8/ exam. Will stop IV fluids and monitor BP off fluids. (2) Overdose Current Visit: Yes Status: Acute Assessment and Plan: known illegal/recreational drug use. Presented from corrections facility with altered mental status. UDS positive for methamphetamines. Patient admitted to taking overdose of gabapentin and attempt to "sleep" my 8 days away. Denied SI. Evaluated by psychiatry who did not feel patient was a danger to self or others. Cessation of illegal/recreational drugs advised but not likely. (3) Acute encephalopathy Current Visit: Yes Status: Acute Assessment and Plan: in the setting of gabapentin overdose. UDS positive for amphetamines. Head CT non-acute. Mentation at baseline (4) Polysubstance abuse Current Visit: Yes Status: Acute Assessment and Plan: known illegal/recreational drug use. Presented from corrections facility with altered mental status. UDS positive for methamphetamines. Patient admitted to taking overdose of gabapentin and attempt to "sleep" my 8 days away. Cessation advised (5) Hepatitis C Current Visit: No Status: Chronic Assessment and Plan: per hx. Follow-up outpatient DVT Prophylaxis: heparin - Time Spent with Patient Total time spent is greater than 50% in coordination of care (as documented) at patient's floor/unit and/or counseling patient: less than 15 minutes Plan of Care Discussed with: patient Internal Medicine: Result - Labs CBC & Chem 7: 03/27/18 03:13 03/27/18 03:13 - ABG Interpretation ABG results: ABG ABG pH 7.45 pH Units (7.32-7.45) 03/27/18 05:06 ABG pCO2 40 mmHg (35-45) 03/27/18 05:06 ABG pO2 106 mmHg (85-104) H 03/27/18 05:06 ABG O2 Saturation 98 % (95-98) 03/27/18 05:06 - Impressions Impressions Chest X-Ray 03/28/18 14:18 IMPRESSION: Mild bibasilar atelectasis. Removal of endotracheal tube. D/ / 03/28/2018 15:46:26 Cr Gray MD / cheikh Interpreting Provider: Cr Gray MD Consult Discharge Plan - Plan Referrals: NONE,PCP [Primary Care Provider] - (1) Hypotension Qualifiers: Hypotension type: other hypotension type Qualified Code(s): I95.89 - Other hypotension (2) Overdose Qualifiers: Encounter type: initial encounter Injury intent: undetermined intent Qualified Code(s): T50.904A - Poisoning by unspecified drugs, medicaments and biological substances, undetermined, initial encounter (5) Hepatitis C Qualifiers: Viral hepatitis chronicity: chronic Hepatic coma status: without hepatic coma Qualified Code(s): B18.2 - Chronic viral hepatitis C
[2018-03-30 05:28] LABS: Hematocrit 34.7 % (35.3-44.9); Hemoglobin 10.8 g/dL (11.5-15.4); Mean Corpuscular HGB Conc 31.1 g/dL (31.6-35.5); Mean Corpuscular Hemoglobin 29.1 pg (28.0-33.3); Mean Corpuscular Volume 93.5 fL (83.0-100.0); Mean Platelet Volume 10.5 fL (9.4-12.4); Platelet Count 197 K/mcL (140-400); Red Blood Count 3.71 M/mcL (3.82-4.97); Red Cell Distribution Width 14.1 % (11.5-14.5)
[2018-03-30] MEDS: *HR* Heparin 5,000 UNIT/ML VIAL SQ SCH (06:26)
[2018-03-30 06:43] LABS: BUN/Creatinine Ratio 20 (6-26); Blood Urea Nitrogen 10 mg/dL (6-20); Calcium 8.6 mg/dL (8.6-10.3); Carbon Dioxide 25 mEq/L (23-29); Chloride 109 mEq/L (98-107); Glucose 181 mg/dL (70-105); Osmolality,Calculated 298 (280-300); Potassium 3.7 mEq/L (3.5-5.1); Sodium 142 mEq/L (136-145); eGFR For Non-African Americans > 60 (> 60)
[2018-03-30] MEDS: Baclofen 10 MG TABLET PO SCH ×2 (07:40→14:31)
[2018-03-30] MEDS: Venlafaxine XR (24 HR) 75 MG CAP.ER.24H PO SCH (07:40)
[2018-03-30] MEDS: Nicotine 21 MG PATCH.TD24 TD SCH (07:41)
[2018-03-30 10:30] VITALS: BP 100/66
--- NOTE | 2018-03-30 13:48 | Discharge Summary ---
- NOTES TO OUTPATIENT PROVIDER Notes to Outpatient Provider: Recommend routine hospital follow-up Orders not resulted at time of discharge: Pending orders 03/31/18 04:00 BMP [Basic Metabolic Panel] AM 0400 Complete Blood Count w/o Diff [HEME] AM 0400 04/01/18 04:00 BMP [Basic Metabolic Panel] AM 0400 Complete Blood Count w/o Diff [HEME] AM 04004/02/18 04:00 BMP [Basic Metabolic Panel] AM 0400 Complete Blood Count w/o Diff [HEME] AM 04004/03/18 04:00 BMP [Basic Metabolic Panel] AM 0400 Complete Blood Count w/o Diff [HEME] AM 0400 Date of Encounter: 03/30/18 Time of Encounter: 13:48 - Discharge Diagnosis (1) Hypotension Priority: Primary Status: Acute Qualifiers: Hypotension type: other hypotension type Qualified Code(s): I95.89 - Other hypotension (2) Overdose Priority: Primary Status: Acute Qualifiers: Encounter type: initial encounter Injury intent: undetermined intent Qualified Code(s): T50.904A - Poisoning by unspecified drugs, medicaments and biological substances, undetermined, initial encounter (3) Acute encephalopathy Priority: Primary Status: Acute (4) Polysubstance abuse Priority: Primary Status: Acute (5) Hepatitis C Priority: Secondary Status: Chronic Qualifiers: Viral hepatitis chronicity: chronic Hepatic coma status: without hepatic coma Qualified Code(s): B18.2 - Chronic viral hepatitis C Hospital course: Ms. Mccallum is a 53 year old female with H depression, polysubstance abuse and hepatitis C [facility] with lethargy and altered mental status. She was given several doses of Narcan with minimal response and there was concern that she was unable to protect her airway and she was intubated. UDS positive for amphetamines. She was extubated on 03/27/2018 and adequately oxygenating on room air at time of discharge. Patient reported taking methamphetamines and too much gabapentin. She reportedly turned herself then and was going to do 8 days in halfway and took the gabapentin and attempt to sleep and away. Denied SI. She was evaluated by psychiatry who did not feel she was a harm to self or others. Mentation improved to baseline. She was found to be hypotensive throughout his hospitalization which was responsive to IV fluids. Her EP medication and Lasix was held at discharge. She was advised to discontinue gabapentin use. Her Effexor was changed to ask our per psychiatry recommendations as this has not lower potential to cause hypotension. On day of discharge she was complaining of dysuria and she had a urinary tract infection. A UA C&S was ordered and she was discharged home on Cipro. She was counseled at length regarding cessation of illegal/recreational drugs. She was discharged stable condition. Discharge discussed with: patient (Seen and examined at bedside. Says she feels about the same; reports some dysuria and thinks she has UTI. No chest pain or shortness of breath.) - Time Spent with Patient Total time spent providing and/or coordinating discharge services: - Discharge Medications Prescriptions: Ciprofloxacin [Cipro] 500 mg PO BID #6 tablet Venlafaxine XR (24 HR) [Effexor XR] 75 mg PO DAILY #30 cap.er.24h Home Medications: Sucralfate [Carafate] 1 gm PO QID 08/02/16 [History] Venlafaxine [Effexor] 75 mg PO TID 07/19/17 [History] Omeprazole [PriLOSEC] 20 mg PO DAILY #14 capsule.dr 08/04/17 [Rx] Ciprofloxacin [Cipro] 500 mg PO BID #6 tablet 03/30/18 [Rx] Venlafaxine XR (24 HR) [Effexor XR] 75 mg PO DAILY #30 cap.er.24h 03/30/18 [Rx] Allergies/Adverse Reactions: 3 Allergy/AdvReac Type Severity Reaction Status Date / Time ibuprofen AdvReac Hives Verified 07/19/17 09:45 tramadol [From Ultram] AdvReac Hives Verified 07/19/17 09:44 Date of admission: 03/26/18 15:51 Primary care physician: PCP NONE Consults: 03/28/18 14:04 Consult to Psychiatry [CONS] Routine Consulting Provider: Psychiat[facility] [place] Reason consult: Other Other reason and/or additional details: overdose Call Completed: Yes Discharging clinician: Tracie Starkey Anticipated date of discharge: 03/30/18 - Constitutional Vitals: Temp Pulse Resp BP Pulse Ox 98.2 F 79 15 100/66 97 03/30/18 10:27 03/30/18 10:27 03/30/18 10:27 03/30/18 10:27 03/30/18 10:27 General appearance: Present: A&O X 3, pleasant, no acute distress - Head Head exam: Present: atraumatic, normocephalic - Eye Eye exam: Present: PERRL, conjuntiva pink, sclera anicteric Pupils: Present: PERRL - Neck Neck exam general surgery: Present: supple, trachea midline. Absent: lymphadenopathy - Respiratory Respiratory exam: Present: CTAB. Absent: accessory muscle use, rales, rhonchi, wheezes - Cardiovascular Cardiovascular exam: Present: RRR, +S1, +S2. Absent: diastolic murmur, gallop, rubs, systolic murmur - GI/Abdominal GI/Abdominal exam: Present: normal bowel sounds, soft, no peritoneal signs. Absent: distended, tenderness - Extremities Exam Extremities exam: Present: warm, radial pulses palpable and symmetrical. Absent : calf tenderness, cyanotic, pedal edema - Neurological Exam Neurological exam: Present: CN II-XII intact, oriented X3, no focal deficits. Absent: pronater drift, facial droop, speech deficit - Skin Skin exam: Present: dry, intact - Patient Status Disposition: Home, Self-Care Condition: Good Functional capacity at discharge: independent ambulation Overall status at discharge: patient is back to baseline - Discharge Instructions Instructions: Ciprofloxacin (By mouth), Urinary Tract Infection in Women (DC), Hypotension (DC), Methamphetamine Abuse (DC) Follow Up With: NONE,PCP [Primary Care Provider] - (Please call [phone] to find a physician accepting new patients) Forms: ED Satisfaction Letter - Diet and Activity Activity: increase activity as tolerated Diet: advance to your usual diet
[2018-03-30 14:55] LABS: Bilirubin,Urine Negative (Negative); Blood,Urine Large (Negative); Clarity,Urine Cloudy (Clear); Color,Urine Yellow (Yellow); Glucose,Urine (UA) Normal (Normal); Ketones,Urine Negative (Negative); Leukocyte Esterase,Urine Large (Negative); Nitrite,Urine Negative (Negative); Protein,Urine 30 mg/dL (Neg-Trace); Specific Gravity,Urine 1.017 (1.010-1.025); Urobilinogen,Urine Normal (Normal)
[2018-03-30 14:57] LABS: Bacteria,Urine Few per hpf (None-Few); Hyaline Casts,Urine Few per lpf (None-Few); RBC,Urine TNTC per hpf (0-3); Squamous Epithelial Cell,Urine Many per lpf (None-Few); WBC,Urine TNTC per hpf (0-3)
== END 2018-03-30 15:23 | disposition home or self-care (01) | DRG 812 ==
LOC: EMEROO 11:28 → ICNU 15:51 → SUATTDRO 15:51 → ICNU 16:20 → 3ANU 03-27 15:31
PROVIDERS: ADMIT Internal Medicine Pulmonary Disease; ATTEND Hospitalist

== ENCOUNTER 2019-05-27 13:09 | Observation (INO) ==
[2019-05-27] MEDS ORDERED: 0.9 % Sodium Chloride 1,000 ML IVC ONE (13:18)
[2019-05-27] MEDS ORDERED: Naloxone 0.4 MG/ML INJ IVP ONE (13:18)
[2019-05-27 13:52] LABS: Bilirubin,Urine Small (Negative); Blood,Urine Small (Negative); Clarity,Urine Cloudy (Clear); Color,Urine Dark Yellow (Yellow); Glucose,Urine (UA) Normal (Normal); Ketones,Urine Trace mg/dL (Negative); Leukocyte Esterase,Urine Small (Negative); Nitrite,Urine Positive (Negative); Protein,Urine 30 mg/dL (Neg-Trace); Specific Gravity,Urine > 1.030 (1.010-1.025); Urobilinogen,Urine Normal (Normal)
[2019-05-27 13:55] LABS: Bacteria,Urine Many per hpf (None-Few); RBC,Urine 0-3 per hpf (0-3); Squamous Epithelial Cell,Urine Many per lpf (None-Few)
[2019-05-27 14:08] LABS: Amphetamine Screen,Urine Positive ng/mL (Cutoff=1000); Barbiturate Screen,Urine Negative ng/mL (Cutoff=200); Benzodiazepines Screen,Urine Positive ng/mL (Cutoff=200); Cannabinoid Screen,Urine Negative ng/mL (Cutoff = 50); Cocaine Screen,Urine Negative ng/mL (Cutoff= 300); Opiate Screen,Urine Negative ng/mL (Cutoff=300); Phencyclidine Screen,Urine Negative ng/mL (Cutoff=25)
[2019-05-27 14:13] LABS: Basophils % 0.7 %; Eosinophils # 0.2 K/mcL (0.0-0.6); Eosinophils % 3.9 %; Hematocrit 36.9 % (35.3-44.9); Hemoglobin 11.8 g/dL (11.5-15.4); Immature Granulocytes % 0.2 % (0-4); Lymphocytes # 1.7 K/mcL (0.6-4.6); Lymphocytes % 30.9 %; Mean Corpuscular Hemoglobin 30.2 pg (28.0-33.3); Mean Corpuscular Volume 94.4 fL (83.0-100.0); Mean Platelet Volume 9.8 fL (9.4-12.4); Monocytes # 0.5 K/mcL (0.0-1.3); Monocytes % 10.1 %; Neutrophils # 2.9 K/mcL (1.6-8.9); Platelet Count 211 K/mcL (140-400); Red Blood Count 3.91 M/mcL (3.82-4.97); Red Cell Distribution Width 13.1 % (11.5-14.5); Segmented Neutrophils % 54.2 %; White Blood Count 5.3 K/mcL (4.3-11.1)
[2019-05-27 14:33] LABS: INR 0.9; Prothrombin Time 10.3 Seconds (9.4-12.1)
[2019-05-27 14:35] LABS: Activated Partial Thrombo Time 29.9 Seconds (26.0-36.0)
[2019-05-27 14:50] LABS: Alanine Aminotransferase 16 Units/L (7-52); Albumin 3.6 g/dL (3.5-5.7); Albumin/Globulin Ratio 1.7 (1.1-2.2); Alkaline Phosphatase 80 Units/L (34-104); Aspartate Amino Transferase 17 Units/L (13-39); BUN/Creatinine Ratio 38 (6-26); Bilirubin,Direct 0.1 mg/dL (0.0-0.2); Bilirubin,Indirect 0.2 mg/dL (0.0-1.2); Bilirubin,Total 0.3 mg/dL (0.3-1.0); Blood Urea Nitrogen 20 mg/dL (6-20); Calcium 8.9 mg/dL (8.6-10.3); Carbon Dioxide 25 mEq/L (23-29); Chloride 109 mEq/L (98-107); Ethanol < 10 mg/dL (Less than 10); Globulin 2.1 g/dL (2.4-3.5); Glucose 119 mg/dL (70-105); Osmolality,Calculated 294 (280-300); Potassium 3.8 mEq/L (3.5-5.1); Sodium 140 mEq/L (136-145); Total Protein 5.7 g/dL (6.4-8.9); Troponin I < 0.03 ng/mL (< 0.04); eGFR For African Americans > 60 (> 60); eGFR For Non-African Americans > 60 (> 60)
[2019-05-27] MEDS ORDERED: Naloxone 0.4 MG/ML INJ IVP PRN (16:18)
[2019-05-27] MEDS ORDERED: Ondansetron 4 MG/2 ML VIAL IVP PRN (16:18)
[2019-05-27] MEDS ORDERED: *HR* Promethazine 25 MG/ML VIAL IVP PRN (16:18)
[2019-05-27] MEDS ORDERED: MOM Conc 10 ML UD.LIQ PO PRN (16:18)
[2019-05-27] MEDS ORDERED: Mag Hydrox/Al Hydrox/Simeth 30 ML UDC PO PRN (16:18)
[2019-05-27] MEDS ORDERED: Haloperidol Lactate 5 MG/ML VIAL IVP PRN (16:34)
[2019-05-27] MEDS: 0.45 % Sodium Chloride w/KCl 20 MEQ/1,000 ML MLS IVC SCH (18:07)
[2019-05-27] MEDS: cefTRIAXone 2,000 MG in Water for inj. (sterile) 20 ML IVP SCH (18:08)
[2019-05-27] MEDS: *HR* Heparin 5,000 UNIT/ML VIAL SQ SCH (18:08)
[2019-05-28 02:46] LABS: Basophils % 0.8 %; Eosinophils # 0.3 K/mcL (0.0-0.6); Eosinophils % 5.6 %; Hematocrit 37.5 % (35.3-44.9); Immature Granulocytes % 0.2 % (0-4); Lymphocytes # 2.2 K/mcL (0.6-4.6); Lymphocytes % 41.9 %; Mean Corpuscular Hemoglobin 29.8 pg (28.0-33.3); Mean Corpuscular Volume 93.1 fL (83.0-100.0); Mean Platelet Volume 9.8 fL (9.4-12.4); Monocytes # 0.4 K/mcL (0.0-1.3); Monocytes % 8.5 %; Neutrophils # 2.2 K/mcL (1.6-8.9); Platelet Count 223 K/mcL (140-400); Red Blood Count 4.03 M/mcL (3.82-4.97); Red Cell Distribution Width 13.1 % (11.5-14.5); White Blood Count 5.2 K/mcL (4.3-11.1)
[2019-05-28 03:05] LABS: BUN/Creatinine Ratio 29 (6-26); Blood Urea Nitrogen 15 mg/dL (6-20); Calcium 8.5 mg/dL (8.6-10.3); Carbon Dioxide 27 mEq/L (23-29); Chloride 111 mEq/L (98-107); Glucose 88 mg/dL (70-105); Osmolality,Calculated 290 (280-300); Potassium 4.2 mEq/L (3.5-5.1); Sodium 140 mEq/L (136-145); eGFR For African Americans > 60 (> 60); eGFR For Non-African Americans > 60 (> 60)
[2019-05-28] MEDS: 0.45 % Sodium Chloride w/KCl 20 MEQ/1,000 ML MLS IVC SCH ×2 (04:59→13:05)
[2019-05-28] MEDS: *HR* Heparin 5,000 UNIT/ML VIAL SQ SCH ×2 (05:01→08:11)
[2019-05-28] MEDS: Acetaminophen 325 MG TABLET PO PRN ×2 (08:20→19:33)
[2019-05-28] MEDS: clonazePAM 0.5 MG TABLET PO SCH ×3 (10:07→21:29)
[2019-05-28] MEDS: cefTRIAXone 2,000 MG in Water for inj. (sterile) 20 ML IVP SCH (18:11)
[2019-05-28] MEDS ORDERED: Melatonin 3 MG TABLET PO PRN (19:49)
[2019-05-29] MEDS: 0.45 % Sodium Chloride w/KCl 20 MEQ/1,000 ML MLS IVC SCH ×3 (00:37→12:34)
[2019-05-29] MEDS: *HR* Heparin 5,000 UNIT/ML VIAL SQ SCH ×2 (06:13→16:40)
[2019-05-29] MEDS: clonazePAM 0.5 MG TABLET PO SCH ×3 (07:46→21:59)
[2019-05-29] MEDS ORDERED: Nitroglycerin 0.4 MG TAB.SUBL SL PRN (09:36)
[2019-05-29] MEDS: cephALEXin 500 MG CAPSULE PO SCH ×3 (12:04→20:35)
[2019-05-29] MEDS: Acetaminophen 325 MG TABLET PO PRN ×2 (12:04→23:52)
[2019-05-30 04:41] LABS: Hematocrit 40.9 % (35.3-44.9); Mean Corpuscular HGB Conc 31.8 g/dL (31.6-35.5); Mean Corpuscular Hemoglobin 29.5 pg (28.0-33.3); Mean Corpuscular Volume 92.7 fL (83.0-100.0); Mean Platelet Volume 10.2 fL (9.4-12.4); Platelet Count 267 K/mcL (140-400); Red Blood Count 4.41 M/mcL (3.82-4.97); White Blood Count 6.9 K/mcL (4.3-11.1)
[2019-05-30 05:04] LABS: BUN/Creatinine Ratio 37 (6-26); Blood Urea Nitrogen 25 mg/dL (6-20); Calcium 9.3 mg/dL (8.6-10.3); Carbon Dioxide 28 mEq/L (23-29); Chloride 104 mEq/L (98-107); Glucose 97 mg/dL (70-105); Osmolality,Calculated 296 (280-300); Sodium 141 mEq/L (136-145); eGFR For African Americans > 60 (> 60); eGFR For Non-African Americans > 60 (> 60)
[2019-05-30] MEDS: *HR* Heparin 5,000 UNIT/ML VIAL SQ SCH (05:50)
[2019-05-30 06:46] VITALS: BP 145/88
[2019-05-30] MEDS: cephALEXin 500 MG CAPSULE PO SCH (08:16)
[2019-05-30] MEDS: clonazePAM 0.5 MG TABLET PO SCH (08:33)
== END 2019-05-30 09:58 | disposition home or self-care (01) ==
LOC: 3BNU 13:09 → EMEROOARM 13:09 → 3BNU 17:36
PROVIDERS: ADMIT Internal Medicine; ATTEND Internal Medicine